=== PATIENT | male | born 1955 | race Caucasian/White ===

== ENCOUNTER → 2017-02-09 | Outpatient (CLI) | payer MEDICARE, MEDICAID ==
[~2017-02-09] MED LIST: ATN50T; DULO30CA; HYDR-31; PRX10T; PRX20T
--- NOTE | 2017-02-09 11:28 | Diagnostic Imaging Report ---
PROCEDURE: US abdomen complete. TECHNIQUE: Multiple real-time grayscale images were obtained over the abdomen in various projections. INDICATION: Abdominal pain. FINDINGS: The liver is a borderline enlarged measuring 19 cm in craniocaudal diagonal measurement. It is echogenic, suggestive of fatty infiltration. No focal mass is seen. There is hepatopetal flow in the portal vein. The pancreas is partially obscured by bowel gas. The gallbladder is the packed with stones. There is no progressive fluid or wall thickening, however, seen. Sonographic Rodgers's sign is reportedly negative. The CBD is partially obscured by bowel gas. The spleen is 12.5 x 5.4 x 5.7 cm in size, at the upper limits of normal. The right kidney is 11.9 and the left kidney is 12.8 cm in length. No hydronephrosis or focal lesion seen. Sonographic Rodgers sign is reportedly negative. There is no fluid collection or free fluid seen in the abdomen. IMPRESSION: 1. Cholelithiasis. 2. Mildly enlarged fatty liver. Dictated by: Dictated on workstation # [id number]
== END ==
LOC: RAD 08:51
PROVIDERS: ATTEND Internal Medicine
DX: K80.20 Calculus of gallbladder without cholecystitis without obstruction (principal)
CPT/HCPCS: 76700

== ENCOUNTER 2017-07-23 10:19 | Emergency (ER) | payer MEDICARE, MEDICAID ==
[~2017-07-23] VITALS: Ht 180.3 cm; Wt 181.4 kg
--- OUTSIDE RECORDS SUMMARY | 2017-07-23 10:25 | XMS REPORT | Clinical Summary ---
Author Author [facility] Address Unknown Phone Unavailable Allergies No Known Allergies Current Medications Prescription Sig. Disp. Refills Start End Date Status Date albuterol (PROVENTIL) inhale 1 Vial by 1 0 01/24/20 Active (2.5 MG/3ML) 0.083% nebulizer route every 4 10 nebulizer solution - 6 hours prn cough, wheeze, shortness of breath fexofenadine (JHONATAN) take 1 Tablet by Oral 0 20 Active 180 MG tablet route every day 10 predniSONE (DELTASONE) 10 6 by mouth today, then 21 0 01/24/20 Active MG tablet decrease by 1 daily until 10 gone zolpidem (AMBIEN) 10 MG take 1 tablet (10MG) by 0 20 Active tablet ORAL route every day at 10 bedtime paroxetine (PAXIL) 40 MG take 1 tablet (40MG) by 0 20 Active tablet ORAL route every day 10 tiotropium (SPIRIVA inhale 1 capsule (18MCG) 0 20 Active HANDIHALER) 18 MCG by INHALATION route 10 inhalation capsule every day albuterol (PROAIR HFA) inhale 2 puff by 0 20 Active 108 (90 BASE) MCG/ACT INHALATION route every 4 10 inhaler - 6 hours prn and before exercise. DULoxetine (CYMBALTA) 30 take 1 capsule (30MG) by 0 //20 Active MG capsule ORAL route every day 10 amphetamine-dextroampheta take 1 tablet (20MG) by 0 06/10/20 Active mine (ADDERALL) 20 MG ORAL route every 3 days 10 tablet before breakfast atenolol (TENORMIN) 50 MG take 1 tablet (50MG) by 30 0 06//20 Active tablet ORAL route every day 10 hydrocodone-acetaminophen take 1 tablet by ORAL 90 0 20 Active (LORCET) 10-650 MG per route every 8 hours prn 10 tablet ankylosing spondylitis pain clonazePAM (KLONOPIN) 1 take 1 tablet (1MG) by 0 01/24/20 Active MG tablet ORAL route 3 times every 10 day .reconcile (MEDICATION No Sig 1 0 02/04/20 Active LIST IMPORTED) 13 Active Problems Not on file Social History Tobacco Use Types Packs/Day Years Used Date Never Assessed Sex Assigned at Date Recorded Not on file Last Filed Vital Signs Vital Sign Reading Time Taken Blood Pressure - - Pulse - - Temperature - - Respiratory Rate - - Oxygen Saturation - - Inhaled Oxygen - - Concentration Weight 145.2 kg (320 lb) 01/23/2010 1:38 PM CDT Height - - Body Mass Index - - Plan of Treatment Health Maintenance Due Date Last Done Comments Hepatitis C Screening 1955 DTaP,Tdap,and Td Vaccines 1973 (1 - Tdap) Colon Cancer Screening 2004 Zoster Vaccine (#1) 2014 Influenza Vaccine (#1) 2017 Results Not on filefrom Last 3 Months
--- OUTSIDE RECORDS SUMMARY | 2017-07-23 10:25 | XMS REPORT ---
Author Author FABIAN MCGHEE Organization [employer] Address Unknown Phone Unavailable Care Team Providers Care Book Mender Name Role Phone FABIAN MCGHEE CP Unavailable Allergies No Known Allergies Problems Problem Type Condition Code Onset Dates Condition Status Problem COPD (chronic obstructive pulmonary disease) J44.9 Active Problem Cigarette nicotine dependence without complication F17.210 Active Problem Gout involving toe of right foot, unspecified cause, unspecified chronicity M10.9 Active Problem Chronic obstructive pulmonary disease, unspecified J44.9 Active Problem Benign essential hypertension I10 Active Problem GERD (gastroesophageal reflux disease) K21.9 Active Problem Low back pain M54.5 Active Problem Nicotine dependence F17.200 Active Medications Medication Code System Code Instructions Start Date End Date Status Dosage Paxil [facility] [address]-06 40 MG Orally Once a day 1 tablet in the morning Results No Known Results Summary Purpose [employer] Submission
--- OUTSIDE RECORDS SUMMARY | 2017-07-23 10:25 | XMS REPORT ---
Author Author FABIAN MCGHEE Organization [employer] Address Unknown Phone Unavailable Care Team Providers Care Membership Sales Manager Name Role Phone FABIAN MCGHEE CP Unavailable [...] Instructions Start Date End Date Status Dosage Adderall [facility] [address]-67 20 mg Orally 3 times a day for aDHD 1 tablet Clonazepam [facility] [address]-73 1 MG 3 times a day as needed Sep 26, 2014 1 tablet Results No Known Results Summary Purpose [employer] Submission
--- OUTSIDE RECORDS SUMMARY | 2017-07-23 10:25 | XMS REPORT ---
Author Author KATE MARTELL [facility] Address [address] [place] [address] Care Team Providers Care Voucher Examiner Name Role Phone KATE MARTELL Unavailable PROBLEMS Type Condition ICD9-CM Code [id number] Code Onset Dates Condition Status SNOMED Code Problem Gout involving toe of right foot, unspecified cause, unspecified chronicity M10.9 Active 138066408 Problem Generalized anxiety disorder F41.1 Active 39379838 Problem Major depression, chronic F32.9 Active 07897501 Problem Calculus of gallbladder without cholecystitis without obstruction K80.20 Active 637895797 Problem Major depression, recurrent F33.9 Active 79606368 Problem Chronic obstructive pulmonary disease, unspecified J44.9 Active 83069365 Problem Cigarette nicotine dependence without complication F17.210 Active 59045326 Problem Attention deficit hyperactivity disorder F90.9 Active 988467703 Problem Chronic obstructive pulmonary disease, unspecified COPD type J44.9 Active 88252627 Problem COPD (chronic obstructive pulmonary disease) J44.9 Active 47995524 Problem GERD (gastroesophageal reflux disease) K21.9 Active 776274751 Problem Low back pain M54.5 Active 940963525 Problem Benign essential hypertension I10 Active 1762907 Problem Nicotine dependence F17.200 Active 02075931 ALLERGIES No Information SOCIAL HISTORY Never Assessed PLAN OF CARE VITAL SIGNS MEDICATIONS Unknown Medications RESULTS Name Result Date Reference Range CBC 2017-01-19 WBC 9.5 3.4-10.8 RBC 5.38 4.14-5.80 Hemoglobin 15.7 12.6-17.7 Hematocrit 45.7 37.5-51.0 MCV 85 79-97 MCH 29.2 26.6-33.0 MCHC 34.4 31.5-35.7 RDW 14.5 12.3-15.4 Platelets 363 150-379 Neutrophils 71 Lymphs 18 Monocytes 8 Eos 2 Basos 1 Neutrophils (Absolute) 6.8 1.4-7.0 Lymphs (Absolute) 1.7 0.7-3.1 Monocytes(Absolute) 0.8 0.1-0.9 Eos (Absolute) 0.1 0.0-0.4 Baso (Absolute) 0.1 0.0-0.2 Immature Granulocytes 0 Immature Grans (Abs) 0.0 0.0-0.1 LIVER PANEL (LFT) 2017-01-19 Protein, Total, Serum 6.9 6.0-8.5 Albumin, Serum 3.8 3.6-4.8 Bilirubin, Total 0.5 0.0-1.2 Bilirubin, Direct 0.21 0.00-0.40 Alkaline Phosphatase, S 230 39-117 AST (SGOT) 17 0-40 ALT (SGPT) 29 0-44 PROCEDURES Procedure Date Ordered Result Body Site LAB NOT BILLED BY [facility] January 19, 2017 VENIPUNCT, ROUTINE* January 19, 2017 IMMUNIZATIONS No Known Immunizations MEDICAL (GENERAL) HISTORY Type Description Date Medical History hearing loss-partial hearing loss bilaterally Medical History hypertension Medical History chronic obstructive pulmonary disease (COPD) Medical History Arthritis-spine, knees, elbows, hands Medical History headache Medical History anxiety Medical History depression Medical History attention deficit hyperactivity disorder Medical History obesity Medical History nasal allergies Medical History dena-rectal cyst Medical History ankylosing spondylosis Surgical History pilonidal cyst 1972 Hospitalization History Hospitalization for surgery only
--- OUTSIDE RECORDS SUMMARY | 2017-07-23 10:25 | XMS REPORT ---
Author Author KATE MARTELL [facility] [employer] Address Unknown Phone Unavailable Care Team Providers Care Marketing Analytics Manager Name Role Phone KATE MARTELL CP Unavailable Allergies No Known Allergies Problems Problem Type Condition Code Onset Dates Condition Status Problem Pain in joint, ankle and foot 719.47 Active Problem Reflux esophagitis 530.11 Active Problem Lumbago 724.2 Active Problem Essential hypertension, benign 401.1 Active Problem Chronic airway obstruction, not elsewhere classified 496 Active Problem Other and unspecified hyperlipidemia 272.4 Active Problem Anxiety state, unspecified 300.00 Active Medications Medication Code System Code Instructions Start Date End Date Status Dosage Hydrocodone-Acetaminophen [facility] [address]-87 10-325 MG Orally 3 times a day October 22, 2014 1 tablet as needed Results No Known Results Summary Purpose [employer] Submission
--- OUTSIDE RECORDS SUMMARY | 2017-07-23 10:25 | XMS REPORT ---
Author Author KATE MARTELL [facility] [employer] Address Unknown Phone Unavailable Care Team Providers Care Paint Coating Machine Operator Name Role Phone KATE MARTELL CP Unavailable [...] Start Date End Date Status Dosage Hydrocodone-Acetaminophen [facility] [address]-57 10-325 MG Orally 3 times a day October 22, 2014 1 tablet as needed Results No Known Results Summary Purpose [employer] Submission
--- OUTSIDE RECORDS SUMMARY | 2017-07-23 10:25 | XMS REPORT ---
Author Author FABIAN MCGHEE Organization [facility] Address Unknown Care Team Providers Care Cigar Head Stringer Name Role Phone FABIAN MCGHEE Unavailable PROBLEMS Type Condition ICD9-CM Code NXV31-OH Code Onset Dates Condition Status SNOMED Code Problem Gout involving toe of right foot, unspecified cause, unspecified chronicity M10.9 Active 926207088 Problem Generalized anxiety disorder F41.1 Active 73863589 Problem Major depression, chronic F32.9 Active 18573448 Problem Calculus of gallbladder without cholecystitis without obstruction K80.20 Active 254406279 Problem Major depression, recurrent F33.9 Active 26955198 Problem Chronic obstructive pulmonary disease, unspecified J44.9 Active 70635355 Problem Cigarette nicotine dependence without complication F17.210 Active 85065035 Problem Attention deficit hyperactivity disorder F90.9 Active 305665789 Problem Chronic obstructive pulmonary disease, unspecified COPD type J44.9 Active 25230533 Problem GERD (gastroesophageal reflux disease) K21.9 Active 002883855 Problem Benign essential hypertension I10 Active 1502174 Problem Nicotine dependence F17.200 Active 26448674 Problem COPD (chronic obstructive pulmonary disease) J44.9 Active 75718120 Problem Low back pain M54.5 Active 570685085 ALLERGIES Unknown Allergies SOCIAL HISTORY No smoking Hx information available PLAN OF CARE VITAL SIGNS MEDICATIONS Medication Instructions Dosage Frequency Start Date End Date Duration Status Adderall 20 mg Orally 3 times a day for aDHD 1 tablet Jun, Active Clonazepam 1 MG 1 tablet Sep, Active RESULTS No Results PROCEDURES No Known procedures IMMUNIZATIONS No Known Immunizations
--- OUTSIDE RECORDS SUMMARY | 2017-07-23 10:25 | XMS REPORT ---
Author Author KATE MARTELL Organization [facility] Address [address] [place] [address] Care Team Providers Care Hrbp Name Role Phone KATE MARTELL Unavailable PROBLEMS Type Condition ICD9-CM Code GVC53-JP Code Onset Dates Condition Status SNOMED Code Problem Gout involving toe of right foot, unspecified cause, unspecified chronicity M10.9 Active 336477380 Problem Generalized anxiety disorder F41.1 Active 77393627 Problem Major depression, chronic F32.9 Active 08738549 Problem Calculus of gallbladder without cholecystitis without obstruction K80.20 Active 517136816 Problem Major depression, recurrent F33.9 Active 18934544 Problem Chronic obstructive pulmonary disease, unspecified J44.9 Active 93303095 Problem Cigarette nicotine dependence without complication F17.210 Active 86152370 Problem Attention deficit hyperactivity disorder F90.9 Active 405971643 Problem Chronic obstructive pulmonary disease, unspecified COPD type J44.9 Active 28282546 Problem COPD (chronic obstructive pulmonary disease) J44.9 Active 40147873 Problem GERD (gastroesophageal reflux disease) K21.9 Active 268433909 Problem Low back pain M54.5 Active 938198418 Problem Benign essential hypertension I10 Active 6496492 Problem Nicotine dependence F17.200 Active 87795787 ALLERGIES Unknown Allergies SOCIAL HISTORY No smoking Hx information available PLAN OF CARE VITAL SIGNS MEDICATIONS Unknown Medications RESULTS Name Result Date Reference Range HEPATITIS PROFILE 2016-08-18 Hep A Ab, IgM Negative Negative HBsAg Screen Negative Negative Hep B Core Ab, IgM Negative Negative Hep C Virus Ab <0.1 0.0-0.9 PROCEDURES Procedure Date Ordered Related Diagnosis Body Site LAB NOT BILLED BY [facility] Aug 18, 2016 VENIPUNCT, ROUTINE* Aug 18, 2016 IMMUNIZATIONS No Known Immunizations
--- OUTSIDE RECORDS SUMMARY | 2017-07-23 10:25 | XMS REPORT ---
Author Author KATE MARTELL [facility] Address [address] [place] [address] Care Team Providers Care It Consultant Name Role Phone KATE MARTELL Unavailable PROBLEMS Type Condition ICD9-CM Code VWH03-DW Code Onset Dates Condition Status SNOMED Code Problem Gout involving toe of right foot, unspecified cause, unspecified chronicity M10.9 Active 483564020 Problem Generalized anxiety disorder F41.1 Active 84422861 Problem Major depression, chronic F32.9 Active 65687706 Problem Calculus of gallbladder without cholecystitis without obstruction K80.20 Active 159582020 Problem Major depression, recurrent F33.9 Active 98813139 Problem Chronic obstructive pulmonary disease, unspecified J44.9 Active 91009105 Problem Cigarette nicotine dependence without complication F17.210 Active 39737031 Problem Attention deficit hyperactivity disorder F90.9 Active 589246890 Problem Chronic obstructive pulmonary disease, unspecified COPD type J44.9 Active 33058229 Problem COPD (chronic obstructive pulmonary disease) J44.9 Active 54129133 Problem GERD (gastroesophageal reflux disease) K21.9 Active 882929639 Problem Low back pain M54.5 Active 614671750 Problem Benign essential hypertension I10 Active 1606597 Problem Nicotine dependence F17.200 Active 86610118 ALLERGIES Unknown Allergies SOCIAL HISTORY No smoking Hx information available PLAN OF CARE VITAL SIGNS MEDICATIONS Unknown Medications RESULTS No Results PROCEDURES No Known procedures IMMUNIZATIONS No Known Immunizations
--- OUTSIDE RECORDS SUMMARY | 2017-07-23 10:25 | XMS REPORT ---
Author Author KATE MARTELL Organization [facility] Address [address] [place] [address] Care Team Providers Care Mold Stripper Name Role Phone KATE MARTELL Unavailable PROBLEMS Type Condition ICD9-CM Code OAW49-FO Code Onset Dates Condition Status SNOMED Code Problem Gout involving toe of right foot, unspecified cause, unspecified chronicity M10.9 Active 852487124 Problem Generalized anxiety disorder F41.1 Active 53976706 Problem Major depression, chronic F32.9 Active 07889425 Problem Calculus of gallbladder without cholecystitis without obstruction K80.20 Active 884284876 Problem Major depression, recurrent F33.9 Active 66040166 Problem Chronic obstructive pulmonary disease, unspecified J44.9 Active 56909739 Problem Cigarette nicotine dependence without complication F17.210 Active 41465138 Problem Attention deficit hyperactivity disorder F90.9 Active 618101288 Problem Chronic obstructive pulmonary disease, unspecified COPD type J44.9 Active 53518232 Problem COPD (chronic obstructive pulmonary disease) J44.9 Active 53379986 Problem GERD (gastroesophageal reflux disease) K21.9 Active 898998183 Problem Low back pain M54.5 Active 795281635 Problem Benign essential hypertension I10 Active 0421002 Problem Nicotine dependence F17.200 Active 69505633 ALLERGIES No Information SOCIAL HISTORY Never Assessed PLAN OF CARE VITAL SIGNS MEDICATIONS Medication Instructions Dosage Frequency Start Date End Date Duration Status Hydrocodone-Acetaminophen 10-325 MG Orally 3 times a day 1 tablet as needed 8h Jan, 28 days Active RESULTS No Results PROCEDURES No Known procedures IMMUNIZATIONS No Known Immunizations MEDICAL (GENERAL) HISTORY [...] History ankylosing spondylosis Surgical History pilonidal cyst 1973 Hospitalization History Hospitalization for surgery only
--- OUTSIDE RECORDS SUMMARY | 2017-07-23 10:25 | XMS REPORT ---
Author Author KATE MARTELL [facility] Address [address] [place] [address] Care Team Providers Care Operating Room Assistant Name Role Phone KATE MARTELL Unavailable PROBLEMS Type Condition ICD9-CM Code AHO37-EY Code Onset Dates Condition Status SNOMED Code Problem Gout involving toe of right foot, unspecified cause, unspecified chronicity M10.9 Active 518380485 Problem Generalized anxiety disorder F41.1 Active 24344977 Problem Major depression, chronic F32.9 Active 10030230 Problem Calculus of gallbladder without cholecystitis without obstruction K80.20 Active 280826458 Problem Major depression, recurrent F33.9 Active 80927006 Problem Chronic obstructive pulmonary disease, unspecified J44.9 Active 02612419 Problem Cigarette nicotine dependence without complication F17.210 Active 42394996 Problem Attention deficit hyperactivity disorder F90.9 Active 051975361 Problem Chronic obstructive pulmonary disease, unspecified COPD type J44.9 Active 15012736 Problem COPD (chronic obstructive pulmonary disease) J44.9 Active 75048129 Problem GERD (gastroesophageal reflux disease) K21.9 Active 242144667 Problem Low back pain M54.5 Active 959994725 Problem Benign essential hypertension I10 Active 7254483 Problem Nicotine dependence F17.200 Active 96437774 ALLERGIES Unknown Allergies SOCIAL HISTORY No smoking Hx information available PLAN OF CARE VITAL SIGNS MEDICATIONS Unknown Medications RESULTS No Results PROCEDURES No Known procedures IMMUNIZATIONS No Known Immunizations
--- OUTSIDE RECORDS SUMMARY | 2017-07-23 10:25 | XMS REPORT ---
Author Author FABIAN MCGHEE Organization [facility] Address Unknown Care Team Providers Care Solar Engineer Name Role Phone FABIAN MCGHEE Unavailable PROBLEMS Type Condition ICD9-CM Code AZQ33-ND Code Onset Dates Condition Status SNOMED Code Problem COPD (chronic obstructive pulmonary disease) J44.9 Active 08557828 Problem Benign essential hypertension I10 Active 4070336 Problem GERD (gastroesophageal reflux disease) K21.9 Active 293245190 Problem Cigarette nicotine dependence without complication F17.210 Active 00541576 Problem Generalized anxiety disorder F41.1 Active 08197588 Problem Low back pain M54.5 Active 323804322 Problem Nicotine dependence F17.200 Active 24608277 Problem Major depression, chronic F32.9 Active 84317668 Problem Gout involving toe of right foot, unspecified cause, unspecified chronicity M10.9 Active 721052059 ALLERGIES Unknown Allergies SOCIAL HISTORY No smoking Hx information available PLAN OF CARE VITAL SIGNS MEDICATIONS Medication Instructions Dosage Frequency Start Date End Date Duration Status Adderall 20 mg Orally 3 times a day for aDHD 1 tablet Active Clonazepam 1 MG 1 tablet Sep, Active RESULTS No Results PROCEDURES No Known procedures IMMUNIZATIONS No Known Immunizations
--- OUTSIDE RECORDS SUMMARY | 2017-07-23 10:25 | XMS REPORT ---
Author Author FABIAN MCGHEE Organization [facility] Address Unknown Care Team Providers Care Patch Driller Name Role Phone FABIAN MCGHEE Unavailable PROBLEMS Type Condition ICD9-CM Code YRQ21-CE Code Onset Dates Condition Status SNOMED Code Problem Gout involving toe of right foot, unspecified cause, unspecified chronicity M10.9 Active 970625679 Problem Generalized anxiety disorder F41.1 Active 62512886 Problem Major depression, chronic F32.9 Active 66913380 Problem Calculus of gallbladder without cholecystitis without obstruction K80.20 Active 907572780 Problem Major depression, recurrent F33.9 Active 75404204 Problem Chronic obstructive pulmonary disease, unspecified J44.9 Active 41285445 Problem Cigarette nicotine dependence without complication F17.210 Active 39323959 Problem Attention deficit hyperactivity disorder F90.9 Active 957053693 Problem Chronic obstructive pulmonary disease, unspecified COPD type J44.9 Active 53373315 Problem COPD (chronic obstructive pulmonary disease) J44.9 Active 88318668 Problem GERD (gastroesophageal reflux disease) K21.9 Active 403600809 Problem Low back pain M54.5 Active 104524130 Problem Benign essential hypertension I10 Active 8590904 Problem Nicotine dependence F17.200 Active 87891829 ALLERGIES Unknown Allergies SOCIAL HISTORY No smoking Hx information available PLAN OF CARE VITAL SIGNS MEDICATIONS Medication Instructions Dosage Frequency Start Date End Date Duration Status Clonazepam 1 MG 1 tablet Sep, 30 days Active RESULTS No Results PROCEDURES No Known procedures IMMUNIZATIONS No Known Immunizations
--- OUTSIDE RECORDS SUMMARY | 2017-07-23 10:25 | XMS REPORT ---
Author Author FABIAN MCGHEE Organization [employer] Address Unknown Phone Unavailable Care Team Providers Care Vice President Fixed Income Name Role Phone FABIAN MCGHEE CP Unavailable Allergies No Known Allergies Problems Problem Type Condition Code Onset Dates Condition Status Problem Back pain M54.9 Active Problem GERD (gastroesophageal reflux disease) K21.9 Active Problem Benign essential hypertension I10 Active Problem COPD (chronic obstructive pulmonary disease) J44.9 Active Medications No Known Medications Results No Known Results Summary Purpose [employer]ClinicalWorks Submission
--- OUTSIDE RECORDS SUMMARY | 2017-07-23 10:25 | XMS REPORT ---
Author Author LENNIE GASPAR Organization [facility] Address [address] [place] [address] Care Team Providers Care Fish Culturist Name Role Phone HUBERT LENNIE Unavailable PROBLEMS Type Condition ICD9-CM Code RAP95-IS Code Onset Dates Condition Status SNOMED Code Problem Gout involving toe of right foot, unspecified cause, unspecified chronicity M10.9 Active 236578248 Problem Generalized anxiety disorder F41.1 Active 21062383 Problem Major depression, chronic F32.9 Active 10725049 Problem Calculus of gallbladder without cholecystitis without obstruction K80.20 Active 413863314 Problem Major depression, recurrent F33.9 Active 26624046 Problem Chronic obstructive pulmonary disease, unspecified J44.9 Active 99445077 Problem Cigarette nicotine dependence without complication F17.210 Active 36118898 Problem Attention deficit hyperactivity disorder F90.9 Active 414840664 Problem Chronic obstructive pulmonary disease, unspecified COPD type J44.9 Active 69382199 Problem COPD (chronic obstructive pulmonary disease) J44.9 Active 65918894 Problem GERD (gastroesophageal reflux disease) K21.9 Active 229557659 Problem Low back pain M54.5 Active 213052711 Problem Benign essential hypertension I10 Active 2475047 Problem Nicotine dependence F17.200 Active 01213978 ALLERGIES Unknown Allergies SOCIAL HISTORY No smoking Hx information available PLAN OF CARE VITAL SIGNS MEDICATIONS Medication Instructions Dosage Frequency Start Date End Date Duration Status Hydrocodone-Acetaminophen 10-325 MG Orally 3 times a day 1 tablet as needed 8h Aug, Active RESULTS No Results PROCEDURES No Known procedures IMMUNIZATIONS No Known Immunizations
--- OUTSIDE RECORDS SUMMARY | 2017-07-23 10:26 | XMS REPORT ---
Author Author FABIAN MCGHEE Organization [employer] Address Unknown Phone Unavailable Care Team Providers Care Upholsterer Inside Name Role Phone FABIAN MCGHEE CP Unavailable [...] Start Date End Date Status Dosage Adderall [facility] [address]-43 20 MG Orally 3 times a day for aDHD Hugo to sign for Dexter 1 tablet in the morning Results No Known Results Summary Purpose eClinicalWorks Submission
--- OUTSIDE RECORDS SUMMARY | 2017-07-23 10:26 | XMS REPORT ---
Author Author FABIAN MCGHEE Organization [employer] Address Unknown Phone Unavailable Care Team Providers Care Mannequin Maker Name Role Phone FABIAN MCGHEE CP Unavailable Allergies No Known Allergies Problems Problem Type Condition ICD-9 Code Onset Dates Condition Status Problem Pain [...] Start Date End Date Status Dosage Adderall [facility] [address]-80 20 MG Orally 3 times a day for aDHD DR. Gomez to sign for Dexter 1 tablet in the morning Results No Known Results Summary Purpose eClinicalWorks Submission
--- OUTSIDE RECORDS SUMMARY | 2017-07-23 10:26 | XMS REPORT ---
Author Author FABIAN MCGHEE Organization [employer] Address Unknown Phone Unavailable Care Team Providers Care Manager Of Project Management Name Role Phone FABIAN MCGHEE CP Unavailable Allergies No Known Allergies Problems Problem Type Condition Code Onset Dates Condition Status Problem Back pain M54.9 Active Problem GERD (gastroesophageal reflux disease) K21.9 Active Problem Benign essential hypertension I10 Active Problem COPD (chronic obstructive pulmonary disease) J44.9 Active Medications Medication Code System Code Instructions Start Date End Date Status Dosage Adderall [facility] [address]-71 20 MG Orally 3 times a day for aDHD Dr Gomez to sign for Dexter 1 tablet in the morning Results No Known Results Summary Purpose eClinicalWorks Submission
--- OUTSIDE RECORDS SUMMARY | 2017-07-23 10:26 | XMS REPORT ---
Author Author KATE MARTELL [facility] eClinicalWorks Address Unknown Phone Unavailable Care Team Providers Care B2B Managed Service Sales Exec Name Role Phone KATE MARTELL CP Unavailable [...] Start Date End Date Status Dosage Hydrocodone-Acetaminophen [facility] [address]-07 10-325 MG Orally 3 times a day October 22, 2014 1 tablet as needed Results No Known Results Summary Purpose eClinicalWorks Submission
--- OUTSIDE RECORDS SUMMARY | 2017-07-23 10:26 | XMS REPORT ---
Author Author KATE MARTELL [facility] eClinicalWorks Address Unknown Phone Unavailable Care Team Providers Care Coach Name Role Phone KATE MARTELL CP Unavailable [...] Start Date End Date Status Dosage Hydrocodone-Acetaminophen [facility] [address]-31 10-325 MG Orally 3 times a day October 22, 2014 1 tablet as needed Results No Known Results Summary Purpose eClinicalWorks Submission
--- OUTSIDE RECORDS SUMMARY | 2017-07-23 10:26 | XMS REPORT ---
Author Author KATE MARTELL [facility] eClinicalWorks Address Unknown Phone Unavailable Care Team Providers Care Director Of Product Management Name Role Phone KATE MARTELL CP Unavailable [...] Start Date End Date Status Dosage Hydrocodone-Acetaminophen [facility] [address]-14 10-325 MG Orally 3 times a day October 22, 2014 1 tablet as needed Results No Known Results Summary Purpose eClinicalWorks Submission
--- OUTSIDE RECORDS SUMMARY | 2017-07-23 10:26 | XMS REPORT ---
Author Author KATE MARTELL Organization [facility] Address [address] [place] [address] Care Team Providers Care Cut Out Stitcher Name Role Phone KATE MARTELL Unavailable PROBLEMS Type Condition ICD9-CM Code [id number] Code Onset Dates Condition Status SNOMED Code Problem Gout involving toe of right foot, unspecified cause, unspecified chronicity M10.9 Active 225781408 Problem Generalized anxiety disorder F41.1 Active 01561737 Problem Major depression, chronic F32.9 Active 12494541 Problem Calculus of gallbladder without cholecystitis without obstruction K80.20 Active 984367787 Problem Major depression, recurrent F33.9 Active 22965320 Problem Chronic obstructive pulmonary disease, unspecified J44.9 Active 92770103 Problem Cigarette nicotine dependence without complication F17.210 Active 57366431 Problem Attention deficit hyperactivity disorder F90.9 Active 675879559 Problem Chronic obstructive pulmonary disease, unspecified COPD type J44.9 Active 04676022 Problem COPD (chronic obstructive pulmonary disease) J44.9 Active 73608387 Problem GERD (gastroesophageal reflux disease) K21.9 Active 883472079 Problem Low back pain M54.5 Active 330197807 Problem Benign essential hypertension I10 Active 0364096 Problem Nicotine dependence F17.200 Active 89549769 ALLERGIES No Information SOCIAL HISTORY Never Assessed PLAN OF CARE VITAL SIGNS MEDICATIONS Medication Instructions Dosage Frequency Start Date End Date Duration Status Hydrocodone-Acetaminophen 10-325 MG Orally 3 times a day 1 tablet as needed 8h December, 28 days Active RESULTS No Results PROCEDURES [...]
--- OUTSIDE RECORDS SUMMARY | 2017-07-23 10:26 | XMS REPORT ---
Author Author KATE MARTELL Organization [facility] Address [address] [place] [address] Care Team Providers Care Sister Superior Name Role Phone KATE MARTELL Unavailable PROBLEMS Type Condition ICD9-CM Code SRL55-HH Code Onset Dates Condition Status SNOMED Code Problem Gout involving toe of right foot, unspecified cause, unspecified chronicity M10.9 Active 408770940 Problem Generalized anxiety disorder F41.1 Active 18642286 Problem Major depression, chronic F32.9 Active 96874374 Problem Calculus of gallbladder without cholecystitis without obstruction K80.20 Active 045326953 Problem Major depression, recurrent F33.9 Active 96073590 Problem Chronic obstructive pulmonary disease, unspecified J44.9 Active 72627995 Problem Cigarette nicotine dependence without complication F17.210 Active 44633158 Problem Attention deficit hyperactivity disorder F90.9 Active 603060182 Problem Chronic obstructive pulmonary disease, unspecified COPD type J44.9 Active 17394588 Problem GERD (gastroesophageal reflux disease) K21.9 Active 792316556 Problem Benign essential hypertension I10 Active 0162998 Problem Nicotine dependence F17.200 Active 95081894 Problem COPD (chronic obstructive pulmonary disease) J44.9 Active 77132787 Problem Low back pain M54.5 Active 908899360 ALLERGIES Unknown Allergies SOCIAL HISTORY No smoking Hx information available PLAN OF CARE VITAL SIGNS MEDICATIONS Unknown Medications RESULTS No Results PROCEDURES No Known procedures IMMUNIZATIONS No Known Immunizations
--- OUTSIDE RECORDS SUMMARY | 2017-07-23 10:26 | XMS REPORT ---
Author Author FABIAN Holt Organization [facility] Address Unknown Care Team Providers Care Planing Machine Operator Name Role Phone FABIAN Holt Unavailable PROBLEMS Type Condition ICD9-CM Code WTT63-[id number] Code Onset Dates Condition Status SNOMED Code Problem Gout involving toe of right foot, unspecified cause, unspecified chronicity M10.9 Active 939714630 Problem Generalized anxiety disorder F41.1 Active 75691779 Problem Major depression, chronic F32.9 Active 61230362 Problem Calculus of gallbladder without cholecystitis without obstruction K80.20 Active 335959448 Problem Major depression, recurrent F33.9 Active 66777121 Problem Chronic obstructive pulmonary disease, unspecified J44.9 Active 96478307 Problem Cigarette nicotine dependence without complication F17.210 Active 23231405 Problem Attention deficit hyperactivity disorder F90.9 Active 509062175 Problem Chronic obstructive pulmonary disease, unspecified COPD type J44.9 Active 68477775 Problem COPD (chronic obstructive pulmonary disease) J44.9 Active 20797714 Problem GERD (gastroesophageal reflux disease) K21.9 Active 370962272 Problem Low back pain M54.5 Active 968202816 Problem Benign essential hypertension I10 Active 5524584 Problem Nicotine dependence F17.200 Active 86254653 ALLERGIES No Information SOCIAL HISTORY Never Assessed PLAN OF CARE VITAL SIGNS MEDICATIONS Medication Instructions Dosage Frequency Start Date End Date Duration Status Adderall 20 mg Orally 3 times a day for aDHD 1 tablet December, 28 days Active RESULTS No Results [...]
--- OUTSIDE RECORDS SUMMARY | 2017-07-23 10:26 | XMS REPORT ---
Author Author KATE MARTELL Organization [facility] Address [address] [place] [address] Care Team Providers Care Scale Adjuster Name Role Phone KATE MARETLL Unavailable PROBLEMS Type Condition ICD9-CM Code [id number] Code Onset Dates Condition Status SNOMED Code Problem Gout involving toe of right foot, unspecified cause, unspecified chronicity M10.9 Active 001808325 Problem Generalized anxiety disorder F41.1 Active 17489084 Problem Major depression, chronic F32.9 Active 54156552 Problem Calculus of gallbladder without cholecystitis without obstruction K80.20 Active 617870134 Problem Major depression, recurrent F33.9 Active 92446782 Problem Chronic obstructive pulmonary disease, unspecified J44.9 Active 39903254 Problem Cigarette nicotine dependence without complication F17.210 Active 90184414 Problem Attention deficit hyperactivity disorder F90.9 Active 467659129 Problem Chronic obstructive pulmonary disease, unspecified COPD type J44.9 Active 61871510 Problem COPD (chronic obstructive pulmonary disease) J44.9 Active 29181699 Problem GERD (gastroesophageal reflux disease) K21.9 Active 531119013 Problem Low back pain M54.5 Active 424134956 Problem Benign essential hypertension I10 Active 1580302 Problem Nicotine dependence F17.200 Active 47109384 ALLERGIES No Information SOCIAL HISTORY Never Assessed PLAN OF CARE VITAL SIGNS MEDICATIONS Medication Instructions Dosage Frequency Start Date End Date Duration Status Hydrocodone-Acetaminophen 10-325 MG Orally 3 times a day 1 tablet as needed 8h 14 Sep, 2016 Active RESULTS No Results PROCEDURES No Known [...]
--- OUTSIDE RECORDS SUMMARY | 2017-07-23 10:26 | XMS REPORT ---
Author Author FABIAN MCGHEE [facility] eClinicalWorks Address Unknown Phone Unavailable Care Team Providers Care Dry Yard Worker Name Role Phone FABIAN MCGHEE CP Unavailable Allergies, Adverse Reactions, Alerts Substance Reaction Event Type N.K.D.A. Info Not Available Non Drug Allergy Problems Problem Type Condition Code Onset Dates Condition Status Problem Back pain M54.9 Active Problem GERD (gastroesophageal reflux disease) K21.9 Active Problem Benign essential hypertension I10 Active Assessment Major depression, recurrent F33.9 Active Assessment Attention deficit hyperactivity disorder F90.9 Active Problem COPD (chronic obstructive pulmonary disease) J44.9 Active Assessment Generalized anxiety disorder F41.1 Active Medications Medication Code System Code Instructions Start Date End Date Status Dosage Triamcinolone Acetonide [facility] [address]-79 0.1 % Externally Twice a day February 12, 2015 1 application to affected area Hydrocodone-Acetaminophen [facility] [address]-35 10-325 MG Orally 3 times a day October 22, 2014 1 tablet as needed ProAir HFA [facility] 57206292637 90 INHALE TWO PUFFS BY MOUTH EVERY 4 HOURS NEEDED FOR SHORTNESS OF BREATH / COUGH Ranitidine HCl [facility] [address]-76 300 MG Orally Twice a day 1 tablet Ibuprofen [facility] 25519118535 800 TAKE ONE TABLET BY MOUTH THREE TIMES A DAY Cymbalta [facility] [address]-24 30 MG Orally Once a day 1 capsule Imitrex [facility] [address]-61 50 mg Apr 26, 2014 1 tablet by Oral route 1 time per day and repeat once more after 2 hours if headache recurs PRN Albuterol Sulfate [facility] [address]-62 1.25 mg/3 mL Apr 26, 2014 1 Each by Inhalation route 4 times per day PRN prn wheezing Clonazepam [facility] [address]-10 1 MG 1 TAB orally 3 times a day Sep 26, 2014 1 tablet by Oral route 3 times per day PRN anxiety Adderall [facility] [address]-49 20 MG Orally 3 times a day for aDHD Dr Gomez to sign for Dexter 1 tablet in the morning Fluticasone Propionate [facility] 27096009698 [address] TWO SPRAYS IN EACH NOSTRIL ONCE DAILY Fexofenadine HCl [facility] [address]-22 180 MG Orally Once a day 1 tablet promethazine [place] 0 25 mg October 22, 2014 1 tablet by Oral route every 6 hours PRN Tenormin [facility] [address]-85 50 MG Orally Once a day 1 tablet Spiriva HandiHaler [facility] 08762549786 18 INHALE 1 CAPSULE INTO LUNGS ONCE DAILY USING HANDIHALER Paxil [facility] [address]-32 40 MG Orally Once a day 1 tablet in the morning Procedures Procedure Coding System Code Date Office Visit, [place] Pt., Level 3 CPT-4 84199 Jul 19, 2015 [facility] VISIT ESTABLISHED PATIENT CPT-4 G0467 Jul 19, 2015 Results No Known Results Summary Purpose eClinicalWorks Submission
--- OUTSIDE RECORDS SUMMARY | 2017-07-23 10:26 | XMS REPORT ---
Author Author KATE MARTELL Organization [employer]ClinicalWorks Address Unknown Phone Unavailable Care Team Providers Care Apple Peeler Operator Name Role Phone KATE MARTELL CP [...] Active Problem Nicotine dependence F17.200 Active Medications No Known Medications Results No Known Results Summary Purpose eClinicalWorks Submission
--- OUTSIDE RECORDS SUMMARY | 2017-07-23 10:26 | XMS REPORT ---
Author Author KATE MARTELL [facility] eClinicalWorks Address Unknown Phone Unavailable Care Team Providers Care Housing Assistant Name Role Phone KATE MARTELL CP Unavailable Allergies No Known Allergies Problems Problem Type Condition Code Onset Dates Condition Status Problem COPD (chronic obstructive pulmonary disease) J44.9 Active Assessment Chronic obstructive pulmonary disease, unspecified J44.9 Active Problem Cigarette nicotine dependence without [...] Instructions Start Date End Date Status Dosage Albuterol Sulfate [facility] 59123421466 2.5 mg USE 1 VIAL IN NEBULIZER FOUR TIMES A DAY NEEDED FOR WHEEZING Results No Known Results Summary Purpose eClinicalWorks Submission
--- OUTSIDE RECORDS SUMMARY | 2017-07-23 10:26 | XMS REPORT ---
Author Author KATE MARTELL [facility] eClinicalWorks Address Unknown Phone Unavailable Care Team Providers Care Film Color Tester Name Role Phone KATE MARTELL CP Unavailable [...] Problem Anxiety state, unspecified 300.00 Active Medications No Known Medications Results No Known Results Summary Purpose eClinicalWorks Submission
--- OUTSIDE RECORDS SUMMARY | 2017-07-23 10:26 | XMS REPORT ---
Author Author FABIAN MCGHEE Organization eClinicalWorks Address Unknown Phone Unavailable Care Team Providers Care Admin Asst Name Role Phone FABIAN MCGHEE CP Unavailable [...] Status Dosage Adderall [facility] [address]-09 20 MG Orally 3 times a day for aDHD DR. Gomez to sign for Dexter 1 tablet in the morning Results No Known Results Summary Purpose eClinicalWorks Submission
--- OUTSIDE RECORDS SUMMARY | 2017-07-23 10:26 | XMS REPORT ---
Author Author KATE MARTELL [facility] Address [address] [place] [address] Care Team Providers Care Field Operator Name Role Phone KATE MARTELL Unavailable PROBLEMS Type Condition ICD9-CM Code [id number] Code Onset Dates Condition Status SNOMED Code Problem Gout involving toe of right foot, unspecified cause, unspecified chronicity M10.9 Active 531500529 Problem Generalized anxiety disorder F41.1 Active 58639461 Problem Major depression, chronic F32.9 Active 49117865 Problem Calculus of gallbladder without cholecystitis without obstruction K80.20 Active 987874462 Problem Major depression, recurrent F33.9 Active 45518184 Problem Chronic obstructive pulmonary disease, unspecified J44.9 Active 91505431 Problem Cigarette nicotine dependence without complication F17.210 Active 03263531 Problem Attention deficit hyperactivity disorder F90.9 Active 589177479 Problem Chronic obstructive pulmonary disease, unspecified COPD type J44.9 Active 40084915 Problem COPD (chronic obstructive pulmonary disease) J44.9 Active 76241584 Problem GERD (gastroesophageal reflux disease) K21.9 Active 023227463 Problem Low back pain M54.5 Active 531905316 Problem Benign essential hypertension I10 Active 4254532 Problem Nicotine dependence F17.200 Active 91168084 ALLERGIES Unknown Allergies SOCIAL HISTORY No smoking Hx information available PLAN OF CARE VITAL SIGNS MEDICATIONS Unknown Medications RESULTS No Results PROCEDURES No Known procedures IMMUNIZATIONS No Known Immunizations
[2017-07-23] MEDS ORDERED: NS IV 1000 ML 2,000 ML ONE (10:27)
--- OUTSIDE RECORDS SUMMARY | 2017-07-23 10:27 | XMS REPORT ---
Author Author FABIAN MCGHEE Organization eClinicalWorks Address Unknown Phone Unavailable Care Team Providers Care Research Worker Kitchen Name Role Phone FABIAN MCGHEE CP Unavailable Allergies No Known Allergies Problems Problem Type Condition Code Onset Dates Condition Status Problem Low back pain M54.5 Active Problem Nicotine dependence F17.200 Active Problem Gout involving toe of right foot, unspecified cause, unspecified chronicity M10.9 Active Problem COPD (chronic obstructive pulmonary disease) J44.9 Active Problem Benign essential hypertension I10 Active Problem GERD (gastroesophageal reflux disease) K21.9 Active Medications Medication Code System Code Instructions Start Date End Date Status Dosage Adderall [facility] [address]-24 20 mg Orally 3 times a day for aDHD 1 tablet Results No Known Results Summary Purpose eClinicalWorks Submission
--- OUTSIDE RECORDS SUMMARY | 2017-07-23 10:27 | XMS REPORT ---
Author Author FABIAN MCGHEE Organization eClinicalWorks Address Unknown Phone Unavailable Care Team Providers Care Cemetery Workers Supervisor Name Role Phone FABIAN MCGHEE CP Unavailable [...] Instructions Start Date End Date Status Dosage Clonazepam [facility] [address]-90 1 MG 3 times a day as needed Sep 26, 2014 1 tablet Results No Known Results Summary Purpose eClinicalWorks Submission
--- OUTSIDE RECORDS SUMMARY | 2017-07-23 10:27 | XMS REPORT ---
Author Author FABIAN MCGHEE Organization [facility] Address Unknown Care Team Providers Care Web Producer Name Role Phone FABIAN MCGHEE Unavailable PROBLEMS Type Condition ICD9-CM Code TES95-MR Code Onset Dates Condition Status SNOMED Code Problem Gout involving toe of right foot, unspecified cause, unspecified chronicity M10.9 Active 055573825 Problem Generalized anxiety disorder F41.1 Active 51353088 Problem Major depression, chronic F32.9 Active 02386631 Problem Calculus of gallbladder without cholecystitis without obstruction K80.20 Active 060219485 Problem Major depression, recurrent F33.9 Active 28802208 Problem Chronic obstructive pulmonary disease, unspecified J44.9 Active 78309508 Problem Cigarette nicotine dependence without complication F17.210 Active 84146599 Problem Attention deficit hyperactivity disorder F90.9 Active 296564355 Problem Chronic obstructive pulmonary disease, unspecified COPD type J44.9 Active 19572659 Problem GERD (gastroesophageal reflux disease) K21.9 Active 716712122 Problem Benign essential hypertension I10 Active 3309385 Problem Nicotine dependence F17.200 Active 82957574 Problem COPD (chronic obstructive pulmonary disease) J44.9 Active 03514166 Problem Low back pain M54.5 Active 924907621 ALLERGIES Substance Reaction Event Type Date Status N.K.D.A. Unknown Non Drug Allergy Jun, Unknown SOCIAL HISTORY No smoking Hx information available PLAN OF CARE Activity Details Follow Up 3 Months Reason: VITAL SIGNS Height 68 in 2016-07-15 Weight 329.9 lbs 2016-07-15 Heart Rate 88 bpm 2016-07-15 Respiratory Rate 20 2016-07-15 BMI 50.16 kg/m2 2016-07-15 Blood pressure systolic 123 mmHg 2016-07-15 Blood pressure diastolic 63 mmHg 2016-07-15 MEDICATIONS Medication Instructions Dosage Frequency Start Date End Date Duration Status Ventolin HFA 108 (90 Base) MCG/ACT Inhalation every 4 hrs 2 puffs as needed 4h Aug, 30 days Active Triamcinolone Acetonide 0.1 % Externally Twice a day 1 application to affected area 12h 30 Jan, 2015 Active Hydrocodone-Acetaminophen 10-325 MG Orally 3 times a day 1 tablet as needed 8h Oct, Active Fluticasone Propionate [address] TWO SPRAYS IN EACH NOSTRIL ONCE DAILY 30 Active Cyclobenzaprine HCl 10 TAKE ONE TABLET BY MOUTH THREE TIMES A DAY 10 Active Spiriva HandiHaler 18 INHALE 1 CAPSULE INTO LUNGS ONCE DAILY USING HANDIHALER 30 Active Spiriva Respimat 2.5 MCG/ACT Inhalation Once a day 2 puffs 24h Jun, Active Fexofenadine HCl 180 MG Orally Once a day 1 tablet 24h Active Paxil 40 MG Orally Once a day 1 tablet in the morning 24h 30 days Active Ranitidine HCl 300 TAKE ONE TABLET BY MOUTH TWICE A DAY 30 Active Cymbalta 60 MG Orally Once a day 1 capsule 24h December, 30 days Active Ibuprofen 800 TAKE ONE TABLET BY MOUTH THREE TIMES A DAY 33 Active Adderall 20 mg Orally 3 times a day for aDHD 1 tablet Jun, Active Cymbalta 60 TAKE ONE CAPSULE BY MOUTH DAILY 30 Active Albuterol Sulfate 1.25 mg/3 mL 1 Each by Inhalation route 4 times per day PRN prn wheezing Apr, Active Tenormin 50 TAKE ONE TABLET BY MOUTH DAILY 30 Active Albuterol Sulfate 2.5 mg USE 1 VIAL IN NEBULIZER FOUR TIMES A DAY NEEDED FOR WHEEZING 30 Active Ventolin HFA 90 INHALE TWO PUFFS BY MOUTH EVERY 4 HOURS 16 Active Cymbalta 30 MG Orally Once a day 1 capsule 24h 30 days Active [facility] Allergy 180 TAKE ONE TABLET BY MOUTH ONCE A DAY 30 Active promethazine 25 mg 1 tablet by Oral route every 6 hours PRN Oct, Active Imitrex 50 TAKE 1 TABLET BY MOUTH DAILY NEEDED FOR HEADACHE. MAY REPEAT ONCE AFTER 2 HOURS 5 Active Clonazepam 1 MG 1 tablet Sep, Active RESULTS No Results PROCEDURES Procedure Date Ordered Related Diagnosis Body Site [facility] VISIT ESTABLISHED PATIENT Jul 15, 2016 Office Visit, Est Pt., Level 3 Jul 15, 2016 IMMUNIZATIONS No Known Immunizations
--- OUTSIDE RECORDS SUMMARY | 2017-07-23 10:27 | XMS REPORT ---
Author Author KATE MARTELL [facility] Address [address] [place] [address] Care Team Providers Care Dairy Truck Driver Name Role Phone KATE MARTELL Unavailable PROBLEMS Type Condition ICD9-CM Code [id number] Code Onset Dates Condition Status SNOMED Code Problem COPD (chronic obstructive pulmonary disease) J44.9 Active 12498571 Problem Benign essential hypertension I10 Active 8428515 Problem GERD (gastroesophageal reflux disease) K21.9 Active 225644467 Assessment Encounter for immunization Z23 Apr, Active 361310836 Assessment Low back pain M54.5 Apr, Active 240246387 Problem Cigarette nicotine dependence without complication F17.210 Active 33437708 Problem Generalized anxiety disorder F41.1 Active 13733206 Problem Low back pain M54.5 Active 509572406 Problem Nicotine dependence F17.200 Active 85895114 Problem Major depression, chronic F32.9 Active 25743975 Problem Gout involving toe of right foot, unspecified cause, unspecified chronicity M10.9 Active 332164732 ALLERGIES Substance Reaction Event Type Date Status N.K.D.A. Unknown Non Drug Allergy Apr, Unknown SOCIAL HISTORY No smoking Hx information available PLAN OF CARE VITAL SIGNS Height 68 in 2016-05-11 Weight 332 lbs 2016-05-11 Heart Rate 62 bpm 2016-05-11 Respiratory Rate 20 2016-05-11 BMI 50.47 kg/m2 2016-05-11 Blood pressure systolic 130 mmHg 2016-05-11 Blood pressure diastolic 70 mmHg 2016-05-11 MEDICATIONS Medication Instructions Dosage Frequency Start Date End Date Duration Status promethazine 25 mg 1 tablet by Oral route every 6 hours PRN Oct, Active Wal-Fex Allergy 180 TAKE ONE TABLET BY MOUTH ONCE A DAY 30 Active Spiriva HandiHaler 18 INHALE 1 CAPSULE INTO LUNGS ONCE DAILY USING HANDIHALER 30 Active Fexofenadine HCl 180 MG Orally Once a day 1 tablet 24h Active Ranitidine HCl 300 TAKE ONE TABLET BY MOUTH TWICE A DAY 30 Active Albuterol Sulfate 1.25 mg/3 mL 1 Each by Inhalation route 4 times per day PRN prn wheezing 11 Apr, 2014 Active Fluticasone Propionate [address] TWO SPRAYS IN EACH NOSTRIL ONCE DAILY 30 Active Imitrex 50 TAKE 1 TABLET BY MOUTH DAILY NEEDED FOR HEADACHE. MAY REPEAT ONCE AFTER 2 HOURS 5 Active Adderall 20 mg Orally 3 times a day for aDHD 1 tablet Active Cymbalta 60 TAKE ONE CAPSULE BY MOUTH DAILY 30 Active Paxil 40 MG Orally Once a day 1 tablet in the morning 24h 30 days Active Ibuprofen 800 TAKE ONE TABLET BY MOUTH THREE TIMES A DAY 33 Active Ventolin HFA 90 Inhalation every 4 hrs 2 puffs as needed 4h 16 Active Cymbalta 30 MG Orally Once a day 1 capsule 24h 30 days Active Clonazepam 1 MG 1 tablet 11 Sep, 2014 Active Triamcinolone Acetonide 0.1 % Externally Twice a day 1 application to affected area 12h Jan, Active Cymbalta 60 MG Orally Once a day 1 capsule 24h December, 30 day(s) Active Hydrocodone-Acetaminophen 10-325 MG Orally 3 times a day 1 tablet as needed 8h Oct, Active Ventolin HFA 108 (90 Base) MCG/ACT Inhalation every 4 hrs 2 puffs as needed 4h 07 Aug, 2015 Active Cyclobenzaprine HCl 10 TAKE ONE TABLET BY MOUTH THREE TIMES A DAY 10 Active Tenormin 50 TAKE ONE TABLET BY MOUTH DAILY 30 Active RESULTS No Results PROCEDURES Procedure Date Ordered Related Diagnosis Body Site [facility] VISIT ESTABLISHED PATIENT May 11, 2016 Office Visit, Est Pt., Level 3 May 11, 2016 SINGLE IMMUNIZATION ADMIN May 11, 2016 FLUARIX QUAD P-FREE 3 AND UP .50 2015May 11, 2016 IMMUNIZATIONS Vaccine Route Administration Date Status FLUARIX QUAD P-FREE 3 AND UP .50 2015 IM Intramuscular May 11, 2016 Administered
--- OUTSIDE RECORDS SUMMARY | 2017-07-23 10:27 | XMS REPORT ---
Author Author FABIAN Holt Organization [facility] Address Unknown Care Team Providers Care Orthopedic Designer Name Role Phone FABIAN Holt Unavailable PROBLEMS Type Condition ICD9-CM Code [id number] Code Onset Dates Condition Status SNOMED Code Problem Gout involving toe of right foot, unspecified cause, unspecified chronicity M10.9 Active 917211981 Problem Generalized anxiety disorder F41.1 Active 45061482 Problem Major depression, chronic F32.9 Active 00796683 Problem Calculus of gallbladder without cholecystitis without obstruction K80.20 Active 096103963 Problem Major depression, recurrent F33.9 Active 44970792 Problem Chronic obstructive pulmonary disease, unspecified J44.9 Active 68533409 Problem Cigarette nicotine dependence without complication F17.210 Active 78899631 Problem Attention deficit hyperactivity disorder F90.9 Active 636205252 Problem Chronic obstructive pulmonary disease, unspecified COPD type J44.9 Active 71334032 Problem COPD (chronic obstructive pulmonary disease) J44.9 Active 86739050 Problem GERD (gastroesophageal reflux disease) K21.9 Active 497426879 Problem Low back pain M54.5 Active 565822172 Problem Benign essential hypertension I10 Active 7043178 Problem Nicotine dependence F17.200 Active 13420052 ALLERGIES No Information SOCIAL HISTORY Never Assessed PLAN OF CARE VITAL SIGNS MEDICATIONS Medication Instructions Dosage Frequency Start Date End Date Duration Status Clonazepam 1 MG Orally 3 times a day as needed 1 tablet Sep, 30 days Active RESULTS [...]
--- OUTSIDE RECORDS SUMMARY | 2017-07-23 10:27 | XMS REPORT ---
Author Author FABIAN Holt Organization [facility] Address Unknown Care Team Providers Care Certified Nurses Aide Name Role Phone FABIAN Holt Unavailable PROBLEMS Type Condition ICD9-CM Code [id number] Code Onset Dates Condition Status SNOMED Code Problem Gout involving toe of right foot, unspecified cause, unspecified chronicity M10.9 Active 267397471 Problem Generalized anxiety disorder F41.1 Active 99894176 Problem Major depression, chronic F32.9 Active 34406838 Problem Calculus of gallbladder without cholecystitis without obstruction K80.20 Active 326333798 Problem Major depression, recurrent F33.9 Active 91041925 Problem Chronic obstructive pulmonary disease, unspecified J44.9 Active 74059742 Problem Cigarette nicotine dependence without complication F17.210 Active 92618467 Problem Attention deficit hyperactivity disorder F90.9 Active 012554080 Problem Chronic obstructive pulmonary disease, unspecified COPD type J44.9 Active 43752397 Problem COPD (chronic obstructive pulmonary disease) J44.9 Active 65510993 Problem GERD (gastroesophageal reflux disease) K21.9 Active 460719272 Problem Low back pain M54.5 Active 999562424 Problem Benign essential hypertension I10 Active 1269553 Problem Nicotine dependence F17.200 Active 72805026 ALLERGIES No Information SOCIAL HISTORY Never Assessed PLAN OF CARE VITAL SIGNS MEDICATIONS Medication Instructions Dosage Frequency Start Date End Date Duration Status Adderall 20 mg Orally 3 times a day for aDHD 1 tablet Sep, 28 days Active Clonazepam 1 MG 1 tablet Sep, 30 [...]
--- OUTSIDE RECORDS SUMMARY | 2017-07-23 10:27 | XMS REPORT ---
Author Author FABIAN MCGHEE [facility] eClinicalWorks Address Unknown Phone Unavailable Care Team Providers Care Steel Engraver Name Role Phone FABIAN MCGHEE CP Unavailable Allergies, Adverse Reactions, Alerts Substance Reaction Event Type N.K.D.A. Info Not Available Non Drug Allergy Problems Problem Type Condition Code Onset Dates Condition Status Assessment Major depression, recurrent F33.9 Active Problem Nicotine dependence F17.200 Active Problem Benign essential hypertension I10 Active Problem Low back pain M54.5 Active Problem COPD (chronic obstructive pulmonary disease) J44.9 Active Assessment Generalized anxiety disorder F41.1 Active Problem Back pain M54.9 Active Problem GERD (gastroesophageal reflux disease) K21.9 Active Medications Medication Code System Code Instructions Start Date End Date Status Dosage Cymbalta [facility] [address]-84 60 MG Orally Once a day December 16, 2015 1 capsule Cyclobenzaprine HCl [facility] 18375362415 10 TAKE ONE TABLET BY MOUTH THREE TIMES A DAY Ventolin HFA [facility] [address]-04 108 (90 Base) MCG/ACT Inhalation every 4 hrs Aug 22, 2015 2 puffs as needed [facility]ex Allergy [facility] 10378919394 180 TAKE ONE TABLET BY MOUTH ONCE A DAY Adderall [facility] [address]-66 20 mg Orally 3 times a day for aDHD 1 tablet Paxil [facility] [address]-01 40 MG Orally Once a day 1 tablet in the morning Clonazepam [facility] [address]-14 1 MG 1 TAB orally 3 times a day Sep 26, 2014 1 tablet by Oral route 3 times per day PRN anxiety Triamcinolone Acetonide [facility] [address]-72 0.1 % Externally Twice a day February 12, 2015 1 application to affected area Imitrex [facility] 06669605902 50 TAKE 1 TABLET BY MOUTH DAILY NEEDED FOR HEADACHE. DECEMBER REPEAT ONCE AFTER 2 HOURS Fexofenadine HCl [facility] [address]-67 180 MG Orally Once a day 1 tablet promethazine [facility] 0 25 mg October 22, 2014 1 tablet by Oral route every 6 hours PRN Fluticasone Propionate [facility] 94522095272 [address] TWO SPRAYS IN EACH NOSTRIL ONCE DAILY Spiriva HandiHaler [facility] 94493528457 18 INHALE 1 CAPSULE INTO LUNGS ONCE DAILY USING HANDIHALER Hydrocodone-Acetaminophen [facility] [address]-27 10-325 MG Orally 3 times a day October 22, 2014 1 tablet as needed Ranitidine HCl [facility] 92710958603 300 TAKE ONE TABLET BY MOUTH TWICE A DAY Albuterol Sulfate [facility] [address]-35 1.25 mg/3 mL Apr 26, 2014 1 Each by Inhalation route 4 times per day PRN prn wheezing Tenormin [facility] 43382839128 50 TAKE ONE TABLET BY MOUTH DAILY Cymbalta [facility] [address]-39 30 MG Orally Once a day 1 capsule Ibuprofen [facility] 00352064166 800 TAKE ONE TABLET BY MOUTH THREE TIMES A DAY Procedures Procedure Coding System Code Date Office Visit, Est Pt., Level 3 CPT-4 92021 December 16, 2015 [facility] VISIT ESTABLISHED PATIENT CPT-4 G0467 December 16, 2015 Vital Signs Date/Time: December 16, 2015 Cardiac Monitoring Heart Rate 68 bpm Weight 330.7 lbs Height 68 in BMI 50.28 Index Blood Pressure Diastolic 78 mmHg Blood Pressure Systolic 130 mmHg Results No Known Results Summary Purpose eClinicalWorks Submission
--- OUTSIDE RECORDS SUMMARY | 2017-07-23 10:27 | XMS REPORT ---
Author Author KATE MARTELL [facility] Address [address] [place] [address] Care Team Providers Care Calender Feeder Name Role Phone KATE MARTELL Unavailable PROBLEMS Type Condition ICD9-CM Code [id number] Code Onset Dates Condition Status SNOMED Code Problem COPD (chronic obstructive pulmonary disease) J44.9 Active 81427097 Problem Benign essential hypertension I10 Active 1278534 Problem GERD (gastroesophageal reflux disease) K21.9 Active 606686332 Problem Cigarette nicotine dependence without complication F17.210 Active 84247753 Problem Generalized anxiety disorder F41.1 Active 52822414 Problem Low back pain M54.5 Active 918538163 Problem Nicotine dependence F17.200 Active 12157028 Problem Major depression, chronic F32.9 Active 15038042 Problem Gout involving toe of right foot, unspecified cause, unspecified chronicity M10.9 Active 140477219 ALLERGIES Unknown Allergies SOCIAL HISTORY No smoking Hx information available PLAN OF CARE VITAL SIGNS MEDICATIONS Medication Instructions Dosage Frequency Start Date End Date Duration Status Hydrocodone-Acetaminophen 10-325 MG Orally 3 times a day 1 tablet as needed 8h Oct, Active RESULTS No Results PROCEDURES No Known procedures IMMUNIZATIONS No Known Immunizations
--- OUTSIDE RECORDS SUMMARY | 2017-07-23 10:27 | XMS REPORT ---
Author Author KATE MARTELL Organization [facility] Address [address] [place] [address] Care Team Providers Care Property Caretaker Name Role Phone KATE MARTELL Unavailable PROBLEMS Type Condition ICD9-CM Code [id number] Code Onset Dates Condition Status SNOMED Code Problem Gout involving toe of right foot, unspecified cause, unspecified chronicity M10.9 Active 863529792 Problem Generalized anxiety disorder F41.1 Active 65639270 Problem Major depression, chronic F32.9 Active 77062972 Problem Calculus of gallbladder without cholecystitis without obstruction K80.20 Active 994138039 Problem Major depression, recurrent F33.9 Active 84068356 Problem Chronic obstructive pulmonary disease, unspecified J44.9 Active 61857569 Problem Cigarette nicotine dependence without complication F17.210 Active 06804682 Problem Attention deficit hyperactivity disorder F90.9 Active 186044806 Problem Chronic obstructive pulmonary disease, unspecified COPD type J44.9 Active 73045469 Problem COPD (chronic obstructive pulmonary disease) J44.9 Active 87363552 Problem GERD (gastroesophageal reflux disease) K21.9 Active 247184483 Problem Low back pain M54.5 Active 205777895 Problem Benign essential hypertension I10 Active 1819853 Problem Nicotine dependence F17.200 Active 34034347 ALLERGIES Unknown Allergies SOCIAL HISTORY No smoking Hx information available PLAN OF CARE VITAL SIGNS MEDICATIONS Medication Instructions Dosage Frequency Start Date End Date Duration Status Carafate 1 GM Orally every 8 hours, PRN 1 tablet on an empty stomach Aug, Active RESULTS No Results PROCEDURES No Known procedures IMMUNIZATIONS No Known Immunizations
--- OUTSIDE RECORDS SUMMARY | 2017-07-23 10:27 | XMS REPORT ---
Author Author KATE MARTELL [facility] eClinicalWorks Address Unknown Phone Unavailable Care Team Providers Care Sausage Stuffer Name Role Phone KATE MARTELL CP Unavailable [...] GERD (gastroesophageal reflux disease) K21.9 Active Medications No Known Medications Results No Known Results Summary Purpose eClinicalWorks Submission
--- OUTSIDE RECORDS SUMMARY | 2017-07-23 10:27 | XMS REPORT ---
Author Author FABIAN MCGHEE [facility] eClinicalWorks Address Unknown Phone Unavailable Care Team Providers Care Transportation Director Name Role Phone FABIAN MCGHEE CP Unavailable Allergies, Adverse Reactions, Alerts Substance Reaction Event Type N.K.D.A. 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 Active Problem Pain in joint, ankle and foot 719.47 Active Problem Reflux esophagitis 530.11 Active Problem Lumbago 724.2 Active Problem Essential hypertension, benign 401.1 Active Problem Chronic airway obstruction, not elsewhere classified 496 Active Problem Other and unspecified hyperlipidemia 272.4 Active Problem Anxiety state, unspecified 300.00 Active Medications Medication Code System Code Instructions Start Date End Date Status Dosage ProAir HFA [facility] 95045682102 90 INHALE TWO PUFFS BY MOUTH EVERY 4 HOURS NEEDED FOR SHORTNESS OF BREATH / COUGH Tenormin [facility] [address]-50 50 MG Orally Once a day 1 tablet Imitrex [facility] [address]-39 50 mg Apr 26, 2014 1 tablet by Oral route 1 time per day and repeat once more after 2 hours if headache recurs PRN Spiriva HandiHaler [facility] [address]-15 18 MCG Inhalation Once a day 1 capsule Albuterol Sulfate [facility] [address]-29 1.25 mg/3 mL Apr 26, 2014 1 Each by Inhalation route 4 times per day PRN prn wheezing Triamcinolone Acetonide [facility] [address]-67 0.1 % Externally Twice a day February 12, 2015 1 application to affected area Adderall [facility] [address]-59 20 MG Orally 3 times a day for aDHD DR. Gomez to sign for Dexter 1 tablet in the morning promethazine [place] 0 25 mg October 22, 2014 1 tablet by Oral route every 6 hours PRN Paxil [facility] [address]-18 40 MG Orally Once a day 1 tablet in the morning Fexofenadine HCl [facility] [address]-93 180 MG Orally Once a day 1 tablet Hydrocodone-Acetaminophen [facility] [address]-14 10-325 MG Orally 3 times a day October 22, 2014 1 tablet as needed Cymbalta [facility] [address]-74 30 MG Orally Once a day 1 capsule Clonazepam [facility] [address]-34 1 MG 1 TAB orally 3 times a day Sep 26, 2014 1 tablet by Oral route 3 times per day PRN anxiety Fluticasone Propionate [facility] 89567386098 [address] TWO SPRAYS IN EACH NOSTRIL ONCE DAILY Ibuprofen [facility] [address]-94 800 MG Orally Three times a day 1 tablet Ranitidine HCl [facility] [address]-69 300 MG Orally Twice a day 1 tablet Procedures Procedure Coding System Code Date Office Visit, Est Pt., Level 3 CPT-4 29843 May 10, 2015 [facility] VISIT ESTABLISHED PATIENT CPT-4 G0467 May 10, 2015 Vital Signs Date/Time: May 10, 2015 Cardiac Monitoring Heart Rate 68 bpm Weight 336.3 lbs Height 68 in BMI 51.13 Index Blood Pressure Diastolic 62 mmHg Blood Pressure Systolic 114 mmHg Results No Known Results Summary Purpose eClinicalWorks Submission
--- OUTSIDE RECORDS SUMMARY | 2017-07-23 10:27 | XMS REPORT ---
Author Author FABIAN Holt Organization [facility] Address Unknown Care Team Providers Care Core Cleaner Name Role Phone FABIAN Holt Unavailable PROBLEMS Type Condition ICD9-CM Code [id number] Code Onset Dates Condition Status SNOMED Code Problem Gout involving toe of right foot, unspecified cause, unspecified chronicity M10.9 Active 037460691 Problem Generalized anxiety disorder F41.1 Active 22898891 Problem Major depression, chronic F32.9 Active 04947531 Problem Calculus of gallbladder without cholecystitis without obstruction K80.20 Active 159250283 Problem Major depression, recurrent F33.9 Active 12108710 Problem Chronic obstructive pulmonary disease, unspecified J44.9 Active 20548634 Problem Cigarette nicotine dependence without complication F17.210 Active 01746022 Problem Attention deficit hyperactivity disorder F90.9 Active 547123476 Problem Chronic obstructive pulmonary disease, unspecified COPD type J44.9 Active 92528882 Problem COPD (chronic obstructive pulmonary disease) J44.9 Active 30728015 Problem GERD (gastroesophageal reflux disease) K21.9 Active 604016499 Problem Low back pain M54.5 Active 186308085 Problem Benign essential hypertension I10 Active 7115904 Problem Nicotine dependence F17.200 Active 31805622 ALLERGIES No Information SOCIAL HISTORY Never Assessed PLAN OF CARE VITAL SIGNS MEDICATIONS Medication Instructions Dosage Frequency Start Date End Date Duration Status Adderall 20 mg Orally 3 times a day for aDHD 1 tablet Jan, 28 days Active RESULTS No Results [...]
--- OUTSIDE RECORDS SUMMARY | 2017-07-23 10:28 | XMS REPORT ---
Author Author KATE MARTELL [facility] Address [address] [place] [address] Care Team Providers Care Clinical Research Tech Name Role Phone KATE MARTELL Unavailable PROBLEMS Type Condition ICD9-CM Code [id number] Code Onset Dates Condition Status SNOMED Code Problem Gout involving toe of right foot, unspecified cause, unspecified chronicity M10.9 Active 464432949 Problem Generalized anxiety disorder F41.1 Active 27576451 Problem Major depression, chronic F32.9 Active 25218022 Problem Calculus of gallbladder without cholecystitis without obstruction K80.20 Active 951696059 Problem Major depression, recurrent F33.9 Active 21361870 Problem Chronic obstructive pulmonary disease, unspecified J44.9 Active 86597261 Problem Cigarette nicotine dependence without complication F17.210 Active 48574378 Problem Attention deficit hyperactivity disorder F90.9 Active 029765705 Problem Chronic obstructive pulmonary disease, unspecified COPD type J44.9 Active 51056431 Problem COPD (chronic obstructive pulmonary disease) J44.9 Active 68047998 Problem GERD (gastroesophageal reflux disease) K21.9 Active 739662428 Problem Low back pain M54.5 Active 534763900 Problem Benign essential hypertension I10 Active 8731865 Problem Nicotine dependence F17.200 Active 17420287 ALLERGIES Substance Reaction Event Type Date Status N.K.D.A. Unknown Non Drug Allergy Aug, Unknown SOCIAL HISTORY No smoking Hx information available PLAN OF CARE Activity Details Follow Up 3 Months Reason: VITAL SIGNS Height 68 in 2016-09-15 Weight 320 lbs 2016-09-15 Temperature 98.0 degrees Fahrenheit 2016-09-15 Heart Rate 70 bpm 2016-09-15 Respiratory Rate 24 2016-09-15 BMI 48.65 kg/m2 2016-09-15 Blood pressure systolic 120 mmHg 2016-09-15 Blood pressure diastolic 68 mmHg 2016-09-15 MEDICATIONS Medication Instructions Dosage Frequency Start Date End Date Duration Status Cymbalta 60 MG Orally Once a day 1 capsule 24h December, 30 days Active Omeprazole 20 mg Orally Once a day 1 24h 27 Jul, 2016 Active Paxil 40 MG Orally Once a day 1 tablet in the morning 24h 30 days Active Tenormin 50 TAKE ONE TABLET BY MOUTH DAILY 30 Active Adderall 20 mg Orally 3 times a day for aDHD 1 tablet Aug, 28 days Active Cyclobenzaprine HCl 10 TAKE ONE TABLET BY MOUTH THREE TIMES A DAY 10 Active Albuterol Sulfate 1.25 mg/3 mL 1 Each by Inhalation route 4 times per day PRN prn wheezing Apr, Active Carafate 1 GM Orally every 8 hours, PRN 1 tablet on an empty stomach Aug, Active Clonazepam 1 MG 1 tablet Sep, 30 days Active Triamcinolone Acetonide 0.1 % Externally Twice a day 1 application to affected area 12h Jan, Active promethazine 25 mg 1 tablet by Oral route every 6 hours PRN Oct, Active Hydrocodone-Acetaminophen 10-325 MG Orally 3 times a day 1 tablet as needed 8h 17 Aug, 2016 Active Ibuprofen 800 TAKE ONE TABLET BY MOUTH THREE TIMES A DAY 33 Active Imitrex 50 TAKE 1 TABLET BY MOUTH DAILY NEEDED FOR HEADACHE. MAY REPEAT ONCE AFTER 2 HOURS 5 Active Spiriva Respimat 2.5 MCG/ACT Inhalation Once a day 2 puffs 24h Jun, Active Fluticasone Propionate [address] TWO SPRAYS IN EACH NOSTRIL ONCE DAILY 30 Active RESULTS No Results PROCEDURES Procedure Date Ordered Related Diagnosis Body Site [facility] Sep 15, 2016 VENIPUNCT, ROUTINE* Sep 15, 2016 Office Visit, Est Pt., Level 2 Sep 15, 2016 [facility] VISIT ESTABLISHED PATIENT Sep 15, 2016 IMMUNIZATIONS No Known Immunizations
--- OUTSIDE RECORDS SUMMARY | 2017-07-23 10:28 | XMS REPORT ---
Author Author KATE MARTELL [facility] Address [address] [place] [address] Care Team Providers Care Transportation Operations Manager Name Role Phone KATE MARTELL Unavailable PROBLEMS Type Condition ICD9-CM Code [id number] Code Onset Dates Condition Status SNOMED Code Problem Gout involving toe of right foot, unspecified cause, unspecified chronicity M10.9 Active 390406042 Problem Generalized anxiety disorder F41.1 Active 73958982 Problem Major depression, chronic F32.9 Active 80555892 Problem Calculus of gallbladder without cholecystitis without obstruction K80.20 Active 158142993 Problem Major depression, recurrent F33.9 Active 94998875 Problem Chronic obstructive pulmonary disease, unspecified J44.9 Active 19945583 Problem Cigarette nicotine dependence without complication F17.210 Active 17898286 Problem Attention deficit hyperactivity disorder F90.9 Active 577725249 Problem Chronic obstructive pulmonary disease, unspecified COPD type J44.9 Active 23368905 Problem GERD (gastroesophageal reflux disease) K21.9 Active 751808960 Problem Benign essential hypertension I10 Active 4036234 Problem Nicotine dependence F17.200 Active 11974164 Problem COPD (chronic obstructive pulmonary disease) J44.9 Active 67448540 Problem Low back pain M54.5 Active 870365824 ALLERGIES Substance Reaction Event Type Date Status N.K.D.A. Unknown Non Drug Allergy Jul, Unknown SOCIAL HISTORY No smoking Hx information available PLAN OF CARE Activity Details Follow Up 3 Months Reason: VITAL SIGNS Height 68 in 2016-08-11 Weight 322.5 lbs 2016-08-11 Temperature 97.7 degrees Fahrenheit 2016-08-11 Heart Rate 74 bpm 2016-08-11 Respiratory Rate 20 2016-08-11 Oximetry 97 % 2016-08-11 BMI 49.03 kg/m2 2016-08-11 Blood pressure systolic 112 mmHg 2016-08-11 Blood pressure diastolic 68 mmHg 2016-08-11 MEDICATIONS Medication Instructions Dosage Frequency Start Date End Date Duration Status Ibuprofen 800 TAKE ONE TABLET BY MOUTH THREE TIMES A DAY 33 Active Albuterol Sulfate 1.25 mg/3 mL 1 Each by Inhalation route 4 times per day PRN prn wheezing Apr, Active Cymbalta 60 MG Orally Once a day 1 capsule 24h December, 30 days Active Albuterol Sulfate 2.5 mg USE 1 VIAL IN NEBULIZER FOUR TIMES A DAY NEEDED FOR WHEEZING 30 Active Omeprazole 20 mg Orally Once a day 1 24h Jul, Active Spiriva Respimat 2.5 MCG/ACT Inhalation Once a day 2 puffs 24h Jun, Active Cymbalta 30 MG Orally Once a day 1 capsule 24h 30 days Active promethazine 25 mg 1 tablet by Oral route every 6 hours PRN Oct, Active Fexofenadine HCl 180 MG Orally Once a day 1 tablet 24h Active Cyclobenzaprine HCl 10 TAKE ONE TABLET BY MOUTH THREE TIMES A DAY 10 Active Clonazepam 1 MG 1 tablet Sep, Active Tenormin 50 TAKE ONE TABLET BY MOUTH DAILY 30 Active Cymbalta 60 TAKE ONE CAPSULE BY MOUTH DAILY 30 Active Paxil 40 MG Orally Once a day 1 tablet in the morning 24h 30 days Active Triamcinolone Acetonide 0.1 % Externally Twice a day 1 application to affected area 12h Jan, Active Ventolin HFA 108 (90 Base) MCG/ACT Inhalation every 4 hrs 2 puffs as needed 4h Aug, 30 days Active Fluticasone Propionate [address] TWO SPRAYS IN EACH NOSTRIL ONCE DAILY 30 Active Ventolin HFA 90 INHALE TWO PUFFS BY MOUTH EVERY 4 HOURS 16 Active Hydrocodone-Acetaminophen 10-325 MG Orally 3 times a day 1 tablet as needed 8h Jul, Active [facility] Allergy 180 TAKE ONE TABLET BY MOUTH ONCE A DAY 30 Active Spiriva HandiHaler 18 INHALE 1 CAPSULE INTO LUNGS ONCE DAILY USING HANDIHALER 30 Active Imitrex 50 TAKE 1 TABLET BY MOUTH DAILY NEEDED FOR HEADACHE. MAY REPEAT ONCE AFTER 2 HOURS 5 Active Adderall 20 mg Orally 3 times a day for aDHD 1 tablet Jun, Active RESULTS Name Result Date Reference Range LIPID PANEL 2016-08-11 Cholesterol, Total 213 100-199 Triglycerides 138 0-149 HDL Cholesterol 35 >39 VLDL Cholesterol William 28 5-40 LDL Cholesterol Calc 150 0-99 Comment: CMP 2016-08-11 Glucose, Serum 87 65-99 BUN 13 8-27 Creatinine, Serum 0.53 0.76-1.27 eGFR If NonAfricn Am 114 >59 eGFR If Africn Am 132 >59 BUN/Creatinine Ratio 25 10-22 Sodium, Serum 139 134-144 Potassium, Serum 4.4 3.5-5.2 Chloride, Serum 100 96-106 Carbon Dioxide, Total 23 18-29 Calcium, Serum 9.0 8.6-10.2 Protein, Total, Serum 6.3 6.0-8.5 Albumin, Serum 3.8 3.6-4.8 Globulin, Total 2.5 1.5-4.5 A/G Ratio 1.5 1.1-2.5 Bilirubin, Total 1.7 0.0-1.2 Alkaline Phosphatase, S 340 39-117 AST (SGOT) 65 0-40 ALT (SGPT) 105 0-44 PROCEDURES Procedure Date Ordered Related Diagnosis Body Site MEASURE BLOOD OXYGEN LEVEL Aug 11, 2016 LAB NOT BILLED BY [facility] Aug 11, 2016 Office Visit, Est Pt., Level 3 Aug 11, 2016 [facility] VISIT ESTABLISHED PATIENT Aug 11, 2016 VENIPUNCT, ROUTINE* Aug 11, 2016 IMMUNIZATIONS No Known Immunizations
--- OUTSIDE RECORDS SUMMARY | 2017-07-23 10:28 | XMS REPORT ---
Author Author KATE MARTELL Organization [facility] Address [address] [place] [address] Care Team Providers Care Sales Ambassador Name Role Phone KATE MARTELL Unavailable PROBLEMS Type Condition ICD9-CM Code [id number] Code Onset Dates Condition Status SNOMED Code Problem Gout involving toe of right foot, unspecified cause, unspecified chronicity M10.9 Active 907243898 Problem Generalized anxiety disorder F41.1 Active 68314841 Problem Major depression, chronic F32.9 Active 75887775 Problem Calculus of gallbladder without cholecystitis without obstruction K80.20 Active 819696001 Problem Major depression, recurrent F33.9 Active 00245786 Problem Chronic obstructive pulmonary disease, unspecified J44.9 Active 45694774 Problem Cigarette nicotine dependence without complication F17.210 Active 07181641 Problem Attention deficit hyperactivity disorder F90.9 Active 200022225 Problem Chronic obstructive pulmonary disease, unspecified COPD type J44.9 Active 37129944 Problem GERD (gastroesophageal reflux disease) K21.9 Active 117254381 Problem Benign essential hypertension I10 Active 8041043 Problem Nicotine dependence F17.200 Active 89537969 Problem COPD (chronic obstructive pulmonary disease) J44.9 Active 61338057 Problem Low back pain M54.5 Active 453681431 ALLERGIES Unknown Allergies SOCIAL HISTORY No smoking Hx information available PLAN OF CARE VITAL SIGNS MEDICATIONS Medication Instructions Dosage Frequency Start Date End Date Duration Status Hydrocodone-Acetaminophen 10-325 MG Orally 3 times a day 1 tablet as needed 8h 20 Jul, 2016 Active RESULTS No Results PROCEDURES No Known procedures IMMUNIZATIONS No Known Immunizations
--- OUTSIDE RECORDS SUMMARY | 2017-07-23 10:28 | XMS REPORT ---
Author Author KATE MARTELL [facility] eClinicalWorks Address Unknown Phone Unavailable Care Team Providers Care Coal Bagger Name Role Phone KATE MARTELL CP Unavailable Allergies No Known Allergies Problems Problem Type Condition Code Onset Dates Condition Status Assessment Chronic obstructive pulmonary disease, unspecified COPD type J44.9 Active Problem GERD (gastroesophageal reflux disease) K21.9 Active Problem COPD (chronic obstructive pulmonary disease) J44.9 Active Problem Chronic obstructive pulmonary disease, unspecified J44.9 Active Problem Cigarette nicotine dependence without complication F17.210 Active Problem Chronic obstructive pulmonary disease, unspecified COPD type J44.9 Active Problem Nicotine dependence F17.200 Active Problem Benign essential hypertension I10 Active Problem Gout involving toe of right foot, unspecified cause, unspecified chronicity M10.9 Active Problem Low back pain M54.5 Active Medications Medication Code System Code Instructions Start Date End Date Status Dosage Spiriva Respimat [facility] [address]-55 2.5 MCG/ACT Inhalation Once a day Jun 2 puffs Results No Known Results Summary Purpose eClinicalWorks Submission
--- OUTSIDE RECORDS SUMMARY | 2017-07-23 10:28 | XMS REPORT ---
Author Author FABIAN MCGHEE Organization [employer] Address Unknown Phone Unavailable Care Team Providers Care Sausage Meat Trimmer Name Role Phone FABIAN MCGHEE CP Unavailable [...] Start Date End Date Status Dosage Cymbalta [facility] [address]-93 30 MG Orally Once a day 1 capsule Paxil [facility] [address]-21 40 MG Orally Once a day 1 tablet in the morning Clonazepam [facility] [address]-09 1 MG 1 TAB orally 3 times a day Sep 26, 2014 1 tablet by Oral route 3 times per day PRN anxiety Results No Known Results Summary Purpose eClinicalWorks Submission
--- OUTSIDE RECORDS SUMMARY | 2017-07-23 10:28 | XMS REPORT ---
Author Author FABIAN MCGHEE Organization [employer] Address Unknown Phone Unavailable Care Team Providers Care Aquatics Group Fitness Instructor Name Role Phone FABIAN MCGHEE CP Unavailable Allergies No Known Allergies Problems Problem Type Condition Code Onset Dates Condition Status Problem Back pain M54.9 Active Problem GERD (gastroesophageal reflux disease) K21.9 Active Problem Benign essential hypertension I10 Active Problem COPD (chronic obstructive pulmonary disease) J44.9 Active Medications Medication Code System Code Instructions Start Date End Date Status Dosage Adderall [facility] [address]-83 20 MG Orally 3 times a day for aDHD Dr Gomez to sign for Dexter 1 tablet in the morning Results No Known Results Summary Purpose eClinicalWorks Submission
--- OUTSIDE RECORDS SUMMARY | 2017-07-23 10:28 | XMS REPORT ---
Author KATE [facility] eClinicalWorks Address Unknown Phone Unavailable Care Team Providers Care Field Sampling Technician Name Role Phone KATE MARTELL Unavailable Allergies, Adverse Reactions, Alerts Substance Reaction Event Type N.K.D.A. Info Not Available Non Drug Allergy Problems Problem Type Condition Code Onset Dates Condition Status Assessment COPD (chronic obstructive pulmonary disease) J44.9 Active Problem Back pain M54.9 Active Problem GERD (gastroesophageal reflux disease) K21.9 Active Problem Benign essential hypertension I10 Active Assessment Back pain M54.9 Active Assessment GERD (gastroesophageal reflux disease) K21.9 Active Problem COPD (chronic obstructive pulmonary disease) J44.9 Active Assessment Benign essential hypertension I10 Active Medications Medication Code System Code Instructions Start Date End Date Status Dosage Fluticasone Propionate [facility] [address]86[address] TWO SPRAYS IN EACH NOSTRIL ONCE DAILY Spiriva HandiHaler [facility] 29794712215 18 INHALE 1 CAPSULE INTO LUNGS ONCE DAILY USING HANDIHALER promethazine ND 0 25 mg October 22, 2014 1 tablet by Oral route every 6 hours PRN Tenormin [facility] [address]-22 50 MG Orally Once a day 1 tablet Albuterol Sulfate [facility] [address]-62 1.25 mg/3 mL Apr 26, 2014 1 Each by Inhalation route 4 times per day PRN prn wheezing Adderall [facility] [address]-98 20 MG Orally 3 times a day for aDHD Dr Martell to sign for Dexter 1 [place] the [place] [address]-37 30 MG Orally Once a day 1 capsule Imitrex [facility] [address]-56 50 mg Apr 26, 2014 1 tablet by Oral route 1 time per day and repeat once more after 2 hours if headache recurs PRN Ranitidine HCl [facility] [address]-80 300 MG Orally Twice a day 1 tablet Fexofenadine HCl [facility] [address]-04 180 MG Orally Once a day 1 tablet Ibuprofen [facility] 93804284174 800 TAKE ONE TABLET BY MOUTH THREE TIMES A DAY Triamcinolone Acetonide [facility] [address]-61 0.1 % Externally Twice a day February 12, 2015 1 application to affected area Paxil [facility] [address]-56 40 MG Orally Once a day 1 tablet in the morning ProAir HFA [facility] 21550704295 90 INHALE TWO PUFFS BY MOUTH EVERY 4 HOURS NEEDED FOR SHORTNESS OF BREATH / COUGH Hydrocodone-Acetaminophen [facility] [address]-74 10-325 MG Orally 3 times a day October 22, 2014 1 tablet as needed Clonazepam [facility] [address]-42 1 MG 1 TAB orally 3 times a day Sep 26, 2014 1 tablet by Oral route 3 times per day PRN anxiety Procedures Procedure Coding System Code Date VENIPUNCT, ROUTINE* CPT-4 60487 Jul 19, 2015 [facility] VISIT ESTABLISHED PATIENT CPT-4 G0467 Jul 19, 2015 [facility] CPT-4 NOBLL Jul 19, 2015 Office Visit, Est Pt., Level 2 CPT-4 98094 Jul 19, 2015 Vital Signs Date/Time: Jul 19, 2015 Temperature 98.1 F Weight 333.8 lbs Height 68 in BMI 50.75 Index Blood Pressure Diastolic 70 mmHg Blood Pressure Systolic 120 mmHg Cardiac Monitoring Heart Rate 68 bpm Results Name Result Date Reference Range Unit Abnormality Flag CMP ----Calcium, Serum 9.6 20150719 8.6-10.2 mg/dL ----Carbon Dioxide, Total 23 20150719 18-29 mmol/L ----ALT (SGPT) 16 20150719 0-44 IU/L ----Creatinine, Serum 0.86 77317777 0.76-1.27 mg/dL ----AST (SGOT) 18 20150719 0-40 IU/L ----eGFR If NonAfricn Am 94 34179412 >59 mL/min/1.73 ----Alkaline Phosphatase, S 92 20150719 39-117 IU/L ----eGFR If Africn Am 109 80989012 >59 mL/min/1.73 ----Bilirubin, Total 0.4 20150719 0.0-1.2 mg/dL ----BUN/Creatinine Ratio 14 26691199 10-22 ----A/G Ratio 1.5 17059626 1.1-2.5 ----Sodium, Serum 136 40336493 134-144 mmol/L ----Globulin, Total 2.8 14304696 1.5-4.5 g/dL ----Potassium, Serum 4.7 93985774 3.5-5.2 mmol/L ----Glucose, Serum 99 07675959 65-99 mg/dL ----Chloride, Serum 99 73269473 97-108 mmol/L ----Albumin, Serum 4.2 49945592 3.6-4.8 g/dL ----BUN 12 00874378 8-27 mg/dL ----Protein, Total, Serum 7.0 57839035 6.0-8.5 g/dL ROUTINE VENIPUNCTURE LIPID PANEL ----VLDL Cholesterol William 25 28314928 5-40 mg/dL ----LDL Cholesterol Calc 117 02529567 0-99 mg/dL H ----Triglycerides 126 86256755 0-149 mg/dL ----HDL Cholesterol 47 71959985 >39 mg/dL ----Cholesterol, Total 189 35788998 100-199 mg/dL Summary Purpose eClinicalWorks Submission
--- OUTSIDE RECORDS SUMMARY | 2017-07-23 10:28 | XMS REPORT ---
Author Author DANIEL SMART Organization [employer] Address Unknown Phone Unavailable Care Team Providers Care Card Lacer Jacquard Name Role Phone DANIEL SMART Unavailable Allergies No Known Allergies Problems Problem [...]
--- OUTSIDE RECORDS SUMMARY | 2017-07-23 10:28 | XMS REPORT ---
Author Author KATE MARTELL [facility] eClinicalWorks Address Unknown Phone Unavailable Care Team Providers Care Shake Maker Name Role Phone KATE MARTELL CP Unavailable [...] Start Date End Date Status Dosage Hydrocodone-Acetaminophen [facility] [address]-54 10-325 MG Orally 3 times a day October 22, 2014 1 tablet as needed Results No Known Results Summary Purpose eClinicalWorks Submission
--- OUTSIDE RECORDS SUMMARY | 2017-07-23 10:28 | XMS REPORT ---
Author Author FABIAN MCGHEE Organization [employer] Address Unknown Phone Unavailable Care Team Providers Care Crew Chief Name Role Phone FABIAN MCGHEE CP Unavailable Allergies No Known Allergies Problems Problem Type Condition Code Onset Dates Condition Status Problem GERD (gastroesophageal reflux disease) K21.9 Active [...] Start Date End Date Status Dosage Clonazepam [facility] [address]-11 1 MG 3 times a day as needed Sep 26, 2014 1 tablet Adderall [facility] [address]-20 20 mg Orally 3 times a day for aDHD Jul 01, 2016 1 tablet Results No Known Results Summary Purpose eClinicalWorks Submission
--- OUTSIDE RECORDS SUMMARY | 2017-07-23 10:28 | XMS REPORT ---
Author Author FABIAN MCGHEE Organization [employer] Address Unknown Phone Unavailable Care Team Providers Care Supervisor [employer]ges [employer] Buildings Name Role Phone FABIAN MCGHEE CP Unavailable [...] Start Date End Date Status Dosage Adderall [facility] [address]-01 20 MG Orally 3 times a day for aDHD Dr Gomez to sign for Dexter 1 tablet in the morning Results No Known Results Summary Purpose eClinicalWorks Submission
--- OUTSIDE RECORDS SUMMARY | 2017-07-23 10:28 | XMS REPORT ---
Author Author FABIAN MCGHEE Organization [employer] Address Unknown Phone Unavailable Care Team Providers Care Spline Rolling Machine Job Setter Name Role Phone FABIAN MCGHEE CP Unavailable [...] Start Date End Date Status Dosage Clonazepam [facility] [address]-64 1 MG 3 times a day as needed Sep 26, 2014 1 tablet Results No Known Results Summary Purpose eClinicalWorks Submission
--- OUTSIDE RECORDS SUMMARY | 2017-07-23 10:29 | XMS REPORT ---
Author Author KATE MARTELL [facility] eClinicalWorks Address Unknown Phone Unavailable Care Team Providers Care Football Scout Name Role Phone KATE MARTELL CP Unavailable Allergies No Known Allergies Problems Problem Type Condition Code Onset Dates Condition Status Problem Back pain M54.9 Active Problem GERD (gastroesophageal reflux disease) K21.9 Active Problem Benign essential hypertension I10 Active Problem COPD (chronic obstructive pulmonary disease) J44.9 Active Medications Medication Code System Code Instructions Start Date End Date Status Dosage Hydrocodone-Acetaminophen [facility] [address]-52 10-325 MG Orally 3 times a day October 22, 2014 1 tablet as needed Results No Known Results Summary Purpose eClinicalWorks Submission
--- OUTSIDE RECORDS SUMMARY | 2017-07-23 10:29 | XMS REPORT ---
Author Author KATE MARTELL [facility] eClinicalWorks Address Unknown Phone Unavailable Care Team Providers Care Printed Circuit Board Panels Deburrer Name Role Phone KATE MARTELL CP Unavailable Allergies No Known Allergies Problems Problem Type Condition Code Onset Dates Condition Status Problem Back pain M54.9 Active Problem GERD (gastroesophageal reflux disease) K21.9 Active Problem Benign essential hypertension I10 Active Problem COPD (chronic obstructive pulmonary disease) J44.9 Active Medications Medication Code System Code Instructions Start Date End Date Status Dosage Ventolin HFA [facility] [address]-20 108 (90 Base) MCG/ACT Inhalation every 4 hrs Aug 22, 2015 2 puffs as needed Results No Known Results Summary Purpose eClinicalWorks Submission
--- OUTSIDE RECORDS SUMMARY | 2017-07-23 10:29 | XMS REPORT ---
Author Author FABIAN MCGHEE Organization [employer] Address Unknown Phone Unavailable Care Team Providers Care Heating Equipment Repairer Name Role Phone FABIAN MCGHEE CP Unavailable Allergies No Known Allergies Problems Problem Type Condition Code Onset Dates Condition Status Problem Back pain M54.9 Active Problem GERD (gastroesophageal reflux disease) K21.9 Active Problem Benign essential hypertension I10 Active Problem COPD (chronic obstructive pulmonary disease) J44.9 Active Medications Medication Code System Code Instructions Start Date End Date Status Dosage Clonazepam [facility] [address]-99 1 MG 1 TAB orally 3 times a day Sep 26, 2014 1 tablet by Oral route 3 times per day PRN anxiety Results No Known Results Summary Purpose eClinicalWorks Submission
--- OUTSIDE RECORDS SUMMARY | 2017-07-23 10:29 | XMS REPORT ---
Author Author KATE MARTELL [facility] Address [address] [place] [address] Care Team Providers Care Manufacturing Associate Name Role Phone KATE MARTELL Unavailable PROBLEMS Type Condition ICD9-CM Code HRE88-HK Code Onset Dates Condition Status SNOMED Code Problem Gout involving toe of right foot, unspecified cause, unspecified chronicity M10.9 Active 290829235 Problem Generalized anxiety disorder F41.1 Active 22389059 Problem Major depression, chronic F32.9 Active 88919371 Problem Calculus of gallbladder without cholecystitis without obstruction K80.20 Active 102340629 Problem Major depression, recurrent F33.9 Active 34113676 Problem Chronic obstructive pulmonary disease, unspecified J44.9 Active 04803292 Problem Cigarette nicotine dependence without complication F17.210 Active 49692615 Problem Attention deficit hyperactivity disorder F90.9 Active 063568177 Problem Chronic obstructive pulmonary disease, unspecified COPD type J44.9 Active 12414601 Problem COPD (chronic obstructive pulmonary disease) J44.9 Active 64739115 Problem GERD (gastroesophageal reflux disease) K21.9 Active 176072546 Problem Low back pain M54.5 Active 357766896 Problem Benign essential hypertension I10 Active 6767219 Problem Nicotine dependence F17.200 Active 97690333 ALLERGIES No Information SOCIAL HISTORY Never Assessed PLAN OF CARE VITAL SIGNS MEDICATIONS Medication Instructions Dosage Frequency Start Date End Date Duration Status Hydrocodone-Acetaminophen 10-325 MG Orally 3 times a day 1 tablet as needed 8h Oct, Nov, 28 days Active RESULTS No Results PROCEDURES [...]
--- OUTSIDE RECORDS SUMMARY | 2017-07-23 10:29 | XMS REPORT ---
Author Author KATE MARTELL [facility] eClinicalWorks Address Unknown Phone Unavailable Care Team Providers Care Narcotics Investigator Name Role Phone KATE MARTELL CP Unavailable [...] Start Date End Date Status Dosage Hydrocodone-Acetaminophen [facility] [address]-44 10-325 MG Orally 3 times a day October 22, 2014 1 tablet as needed Results No Known Results Summary Purpose eClinicalWorks Submission
--- OUTSIDE RECORDS SUMMARY | 2017-07-23 10:29 | XMS REPORT ---
Author Author KATE MARTELL [facility] e[employer] Address Unknown Phone Unavailable Care Team Providers Care Coil Wrapper Name Role Phone KATE MARTELL CP Unavailable Allergies No Known Allergies Problems Problem Type Condition Code Onset Dates Condition Status Problem Nicotine dependence F17.200 Active Problem Benign essential hypertension I10 Active Problem Low back pain M54.5 Active Problem COPD (chronic obstructive pulmonary disease) J44.9 Active Assessment Back pain M54.9 Active Problem Back pain M54.9 Active Problem GERD (gastroesophageal reflux disease) K21.9 Active Medications Medication Code System Code Instructions Start Date End Date Status Dosage Hydrocodone-Acetaminophen [facility] [address]-98 10-325 MG Orally 3 times a day October 22, 2014 1 tablet as needed Results No Known Results Summary Purpose eClinicalWorks Submission
--- OUTSIDE RECORDS SUMMARY | 2017-07-23 10:29 | XMS REPORT ---
Author Author FABIAN MCGHEE Organization [facility] Address Unknown Care Team Providers Care Linux Support Engineer Name Role Phone FABIAN MCGHEE Unavailable PROBLEMS Type Condition ICD9-CM Code [id number] Code Onset Dates Condition Status SNOMED Code Problem Gout involving toe of right foot, unspecified cause, unspecified chronicity M10.9 Active 605083389 Problem Generalized anxiety disorder F41.1 Active 12154936 Problem Major depression, chronic F32.9 Active 28060080 Problem Calculus of gallbladder without cholecystitis without obstruction K80.20 Active 302693422 Problem Major depression, recurrent F33.9 Active 86932243 Problem Chronic obstructive pulmonary disease, unspecified J44.9 Active 34551340 Problem Cigarette nicotine dependence without complication F17.210 Active 11311481 Problem Attention deficit hyperactivity disorder F90.9 Active 420115936 Problem Chronic obstructive pulmonary disease, unspecified COPD type J44.9 Active 40244248 Problem COPD (chronic obstructive pulmonary disease) J44.9 Active 50085792 Problem GERD (gastroesophageal reflux disease) K21.9 Active 714271462 Problem Low back pain M54.5 Active 679721892 Problem Benign essential hypertension I10 Active 7461277 Problem Nicotine dependence F17.200 Active 11693894 ALLERGIES Unknown Allergies SOCIAL HISTORY No smoking Hx information available PLAN OF CARE VITAL SIGNS MEDICATIONS Medication Instructions Dosage Frequency Start Date End Date Duration Status Adderall 20 mg Orally 3 times a day for aDHD 1 tablet Aug, 28 days Active RESULTS No Results PROCEDURES No Known procedures IMMUNIZATIONS No Known Immunizations
--- OUTSIDE RECORDS SUMMARY | 2017-07-23 10:29 | XMS REPORT ---
Author Author KATE MARTELL [facility] eClinicalWorks Address Unknown Phone Unavailable Care Team Providers Care Livestock Yard Supervisor Name Role Phone KATE MARTELL CP Unavailable Allergies No Known Allergies Problems Problem Type Condition Code Onset Dates Condition Status Assessment Back pain M54.9 Active Problem GERD (gastroesophageal [...] Start Date End Date Status Dosage Hydrocodone-Acetaminophen [facility] [address]-18 10-325 MG Orally 3 times a day October 22, 2014 1 tablet as needed Results No Known Results Summary Purpose eClinicalWorks Submission
--- OUTSIDE RECORDS SUMMARY | 2017-07-23 10:29 | XMS REPORT ---
Author Author KATE MARTELL [facility] eClinicalWorks Address Unknown Phone Unavailable Care Team Providers Care Public Information Relations Manager Name Role Phone KATE MARTELL CP [...]
--- OUTSIDE RECORDS SUMMARY | 2017-07-23 10:29 | XMS REPORT ---
Author Author FABIAN Holt Organization [facility] Address Unknown Care Team Providers Care Wastewater Treatment Plant Attendant Name Role Phone FABIAN Holt Unavailable PROBLEMS Type Condition ICD9-CM Code [id number] Code Onset Dates Condition Status SNOMED Code Problem Gout involving toe of right foot, unspecified cause, unspecified chronicity M10.9 Active 366163181 Problem Generalized anxiety disorder F41.1 Active 87231949 Problem Major depression, chronic F32.9 Active 16913682 Problem Calculus of gallbladder without cholecystitis without obstruction K80.20 Active 284618169 Problem Major depression, recurrent F33.9 Active 34794816 Problem Chronic obstructive pulmonary disease, unspecified J44.9 Active 20492180 Problem Cigarette nicotine dependence without complication F17.210 Active 49708836 Problem Attention deficit hyperactivity disorder F90.9 Active 154580227 Problem Chronic obstructive pulmonary disease, unspecified COPD type J44.9 Active 14923523 Problem COPD (chronic obstructive pulmonary disease) J44.9 Active 59233913 Problem GERD (gastroesophageal reflux disease) K21.9 Active 678386400 Problem Low back pain M54.5 Active 184030544 Problem Benign essential hypertension I10 Active 1167438 Problem Nicotine dependence F17.200 Active [id number] ALLERGIES No Information SOCIAL HISTORY Never Assessed PLAN OF CARE VITAL SIGNS MEDICATIONS Medication Instructions Dosage Frequency Start Date End Date Duration Status Adderall 20 mg Orally 3 times a day for aDHD 1 tablet Sep, 28 days Active RESULTS No Results PROCEDURES [...]
[2017-07-23] MEDS ORDERED: PIPERACILLIN SODIUM/TAZOBACTAM 4.5 GM in NS (IVPB) 100 ML IV ONE (10:30)
[2017-07-23] MEDS ORDERED: LACTATED RINGERS 2,000 ML IV ONE (10:30)
--- OUTSIDE RECORDS SUMMARY | 2017-07-23 10:30 | XMS REPORT | Continuity of Care Document ---
Author Author [facility] Address Unknown Phone Unavailable Allergies Medications Problems Date Dx Coded Attending Type Code Diagnosis Diagnosed By 03/21/2009 JEANNE DIAZ APRN 278.00 OBESITY UNSPECIFIED 03/21/2009 JEANNE DIAZ APRN 305.1 NICOTINE DEPENDENCE 03/21/2009 JEANNE DIAZ APRN 401.1 ESSENTIAL HYPERTENSION BENIGN 03/21/2009 JEANNE DIAZ APRN 496 CHRONIC OBSTRUCTIVE PULMONARY DISEASE 03/21/2009 JEANNE DIAZ APRN 716.90 ARTHROPATHY 03/21/2009 JEANNE DIAZ APRN 720.0 ANKYLOSING SPONDYLITIS 03/21/2009 JEANNE DIAZ APRN 278.00 OBESITY UNSPECIFIED 03/21/2009 JEANNE DIAZ APRN 305.1 NICOTINE DEPENDENCE 03/21/2009 JEANNE DIAZ APRN 401.1 ESSENTIAL HYPERTENSION BENIGN 03/21/2009 JEANNE DIAZ APRN 496 CHRONIC OBSTRUCTIVE PULMONARY DISEASE 03/21/2009 JEANNE DIAZ APRN 716.90 ARTHROPATHY 03/21/2009 JEANNE DIAZ APRN 720.0 ANKYLOSING SPONDYLITIS 03/21/2009 278.00 OBESITY UNSPECIFIED 03/21/2009 305.1 NICOTINE DEPENDENCE 03/21/2009 401.1 ESSENTIAL HYPERTENSION BENIGN 03/21/2009 496 CHRONIC OBSTRUCTIVE PULMONARY DISEASE 03/21/2009 716.90 ARTHROPATHY 03/21/2009 720.0 ANKYLOSING SPONDYLITIS 03/21/2009 JEANNE DIAZ APRN 278.00 OBESITY UNSPECIFIED 03/21/2009 JEANNE DIAZ APRN 305.1 NICOTINE DEPENDENCE 03/21/2009 JEANNE DIAZ APRN 401.1 ESSENTIAL HYPERTENSION BENIGN 03/21/2009 JEANNE DIAZ APRN 496 CHRONIC OBSTRUCTIVE PULMONARY DISEASE 03/21/2009 JEANNE DIAZ APRN 716.90 ARTHROPATHY 03/21/2009 EMILY DEWITT, JEANNE CORTES 720.0 ANKYLOSING SPONDYLITIS 03/21/2009 JAYSHREE MATHEWS, KATE 278.00 OBESITY UNSPECIFIED 03/21/2009 JAYSHREE MATHEWS, KATE 305.1 NICOTINE DEPENDENCE 03/21/2009 JAYSHREE MATHEWS, KATE 401.1 ESSENTIAL HYPERTENSION BENIGN 03/21/2009 JAYSHREE MATHEWS, KATE 496 CHRONIC OBSTRUCTIVE PULMONARY DISEASE 03/21/2009 JAYSHREE MATHEWS, KATE 716.90 ARTHROPATHY 03/21/2009 JAYSHREE MATHEWS, KATE 720.0 ANKYLOSING SPONDYLITIS 03/21/2009 JAYSHREE MATHEWS, KATE 278.00 OBESITY UNSPECIFIED 03/21/2009 JAYSHREE MATHEWS, KATE 305.1 NICOTINE DEPENDENCE 03/21/2009 JAYSHREE MATHEWS, KATE 401.1 ESSENTIAL HYPERTENSION BENIGN 03/21/2009 JAYSHREE MATHEWS, KATE 496 CHRONIC OBSTRUCTIVE PULMONARY DISEASE 03/21/2009 JAYSHREE MATHEWS, KATE 716.90 ARTHROPATHY 03/21/2009 JAYSHREE MATHEWS, KATE 720.0 ANKYLOSING SPONDYLITIS 03/21/2009 JAYSHREE MATHEWS, KATE 278.00 OBESITY UNSPECIFIED 03/21/2009 JAYSHREE MATHEWS, KATE 305.1 NICOTINE DEPENDENCE 03/21/2009 JAYSHREE MATHEWS, KATE 401.1 ESSENTIAL HYPERTENSION BENIGN 03/21/2009 JAYSHREE MATHEWS, KATE 49[place] CHRONIC OBSTRUCTIVE PULMONARY DISEASE 03/21/2009 JAYSHREE MATHEWS, KATE 71[place].90 ARTHROPATHY 03/21/2009 JAYSHREE MATHEWS, KATE 720.0 ANKYLOSING SPONDYLITIS 03/21/2009 JAYSHREE MATHEWS, KATE 278.00 OBESITY UNSPECIFIED 03/21/2009 JAYSHREE MATHEWS, KATE 305.1 NICOTINE DEPENDENCE 03/21/2009 JAYSHREE MATHEWS, KATE 401.1 ESSENTIAL HYPERTENSION BENIGN 03/21/2009 JAYSHREE MATHEWS, KATE [place] CHRONIC OBSTRUCTIVE PULMONARY DISEASE 03/21/2009 JAYSHREE MATHEWS, KATE 71[place].90 ARTHROPATHY 03/21/2009 JAYSHREE MATHEWS, KATE 720.0 ANKYLOSING SPONDYLITIS 03/21/2009 JAYSHREE MATHEWS, KATE 278.00 OBESITY UNSPECIFIED 03/21/2009 JAYSHREE MATHEWS, KATE 305.1 NICOTINE DEPENDENCE 03/21/2009 JAYSHREE MATHEWS, KATE 401.1 ESSENTIAL HYPERTENSION BENIGN 03/21/2009 JAYSHREE MATHEWS, KATE 496 CHRONIC OBSTRUCTIVE PULMONARY DISEASE 03/21/2009 JAYSHREE MATHEWS, KATE 716.90 ARTHROPATHY 03/21/2009 JAYSHREE MATHEWS, KATE 720.0 ANKYLOSING SPONDYLITIS 03/21/2009 JAYSHREE MATHEWS, KATE 278.00 OBESITY UNSPECIFIED 03/21/2009 JAYSHREE MATHEWS, KATE 305.1 NICOTINE DEPENDENCE 03/21/2009 JAYSHREE MATHEWS, KATE 401.1 ESSENTIAL HYPERTENSION BENIGN 03/21/2009 JAYSHREE MATHEWS, KATE 496 CHRONIC OBSTRUCTIVE PULMONARY DISEASE 03/21/2009 JAYSHREE MATHEWS, KATE 716.90 ARTHROPATHY 03/21/2009 JAYSHREE MATHEWS, KATE 720.0 ANKYLOSING SPONDYLITIS 03/21/2009 JAYSHREE MATHEWS, KATE 278.00 OBESITY UNSPECIFIED 03/21/2009 JAYSHREE MATHEWS, KATE 305.1 NICOTINE DEPENDENCE 03/21/2009 JAYSHREE MATHEWS, KATE 401.1 ESSENTIAL HYPERTENSION BENIGN 03/21/2009 JAYSHREE MATHEWS, KATE 496 CHRONIC OBSTRUCTIVE PULMONARY DISEASE 03/21/2009 JAYSHREE MATHEWS, KATE 716.90 ARTHROPATHY 03/21/2009 KATE MARTELL MD 720.0 ANKYLOSING SPONDYLITIS 03/21/2009 TAZ CISCO CERTIFIED NETWORK PROFESSIONAL, FABIAN M 278.00 OBESITY UNSPECIFIED 03/21/2009 TAZ CISCO CERTIFIED NETWORK PROFESSIONAL, FABIAN M 305.1 NICOTINE DEPENDENCE 03/21/2009 TAZ CISCO CERTIFIED NETWORK PROFESSIONAL, FABIAN M 401.1 ESSENTIAL HYPERTENSION BENIGN 03/21/2009 TAZ CISCO CERTIFIED NETWORK PROFESSIONAL, FABIAN M 496 CHRONIC OBSTRUCTIVE PULMONARY DISEASE 03/21/2009 TAZ CISCO CERTIFIED NETWORK PROFESSIONAL, FABIAN M 716.90 ARTHROPATHY 03/21/2009 TAZ CISCO CERTIFIED NETWORK PROFESSIONAL, FABIAN M 720.0 ANKYLOSING SPONDYLITIS 03/21/2009 TAZ CISCO CERTIFIED NETWORK PROFESSIONAL, FABIAN M 278.00 OBESITY UNSPECIFIED 03/21/2009 TAZ CISCO CERTIFIED NETWORK PROFESSIONAL, FABIAN M 305.1 NICOTINE DEPENDENCE 03/21/2009 TAZ CISCO CERTIFIED NETWORK PROFESSIONAL, FABIAN M 401.1 ESSENTIAL HYPERTENSION BENIGN 03/21/2009 TAZ CISCO CERTIFIED NETWORK PROFESSIONAL, FABIAN M 496 CHRONIC OBSTRUCTIVE PULMONARY DISEASE 03/21/2009 TAZ CISCO CERTIFIED NETWORK PROFESSIONAL, FABIAN M 716.90 ARTHROPATHY 03/21/2009 TAZ CISCO CERTIFIED NETWORK PROFESSIONAL, FABIAN M 720.0 ANKYLOSING SPONDYLITIS 03/21/2009 TAZ CISCO CERTIFIED NETWORK PROFESSIONAL, FABIAN M 278.00 OBESITY UNSPECIFIED 03/21/2009 TAZ CISCO CERTIFIED NETWORK PROFESSIONAL, FABIAN M 305.1 NICOTINE DEPENDENCE 03/21/2009 TAZ CISCO CERTIFIED NETWORK PROFESSIONAL, FABINA M 401.1 ESSENTIAL HYPERTENSION BENIGN 03/21/2009 TAZ SHARDA, FABIAN M 496 CHRONIC OBSTRUCTIVE PULMONARY DISEASE 03/21/2009 TAZ SHARDA, FABIAN M 716.90 ARTHROPATHY 03/21/2009 TAZ SHARDA, FABIAN M 720.0 ANKYLOSING SPONDYLITIS 03/21/2009 KATE MARTELL MD 278.00 OBESITY UNSPECIFIED 03/21/2009 KATE MARTELL MD 305.1 NICOTINE DEPENDENCE 03/21/2009 KATE MARTELL MD 401.1 ESSENTIAL HYPERTENSION BENIGN 03/21/2009 KATE MARTELL MD 496 CHRONIC OBSTRUCTIVE PULMONARY DISEASE 03/21/2009 KATE MARTELL MD 716.90 ARTHROPATHY 03/21/2009 KATE MARTELL MD 720.0 ANKYLOSING SPONDYLITIS 04/15/2009 EMILY DEWITT JEANNE SOPHIA 278.01 OBESITY MORBID 04/15/2009 JEANNE DIAZ APRN 401.9 Combined Systolic And Diastolic Elevation 04/15/2009 JEANNE DIAZ APRN 278.01 OBESITY MORBID 04/15/2009 JEANNE DIAZ APRN 401.9 Combined Systolic And Diastolic Elevation 04/15/2009 278.01 OBESITY MORBID 04/15/2009 401.9 Combined Systolic And Diastolic Elevation 04/15/2009 JEANNE DIAZ APRN 278.01 OBESITY MORBID 04/15/2009 EMILY DEWITT JEANNE SOPHIA 401.9 Combined Systolic And Diastolic Elevation 04/15/2009 KATE MARTELL MD 278.01 OBESITY MORBID 04/15/2009 KATE MARTELL MD 401.9 Combined Systolic And Diastolic Elevation 04/15/2009 KATE MARTELL MD 278.01 OBESITY MORBID 04/15/2009 KATE MARTELL MD 401.9 Combined Systolic And Diastolic Elevation 04/15/2009 KATE MARTELL MD 278.01 OBESITY MORBID 04/15/2009 KATE MARTELL MD 401.9 Combined Systolic And Diastolic Elevation 04/15/2009 KATE MARTELL MD 278.01 OBESITY MORBID 04/15/2009 KATE MARTELL MD 401.9 Combined Systolic And Diastolic Elevation 04/15/2009 KATE MARTELL MD 278.01 OBESITY MORBID 04/15/2009 KATE MARTELL MD 401.9 Combined Systolic And Diastolic Elevation 04/15/2009 KATE MARTELL MD 278.01 OBESITY MORBID 04/15/2009 JAYSHREE MATHEWS, KATE 401.9 Combined Systolic And Diastolic Elevation 04/15/2009 KATE MARTELL MD 278.01 OBESITY MORBID 04/15/2009 JAYSHREE MATHEWS, KATE 401.9 Combined Systolic And Diastolic Elevation 04/15/2009 TAZ CISCO CERTIFIED NETWORK PROFESSIONAL, FABIAN M 278.01 OBESITY MORBID 04/15/2009 TAZ CISCO CERTIFIED NETWORK PROFESSIONAL, FABIAN M 401.9 Combined Systolic And Diastolic Elevation 04/15/2009 TAZ CISCO CERTIFIED NETWORK PROFESSIONAL, FABIAN M 278.01 OBESITY MORBID 04/15/2009 TAZ CISCO CERTIFIED NETWORK PROFESSIONAL, FABIAN M 401.9 Combined Systolic And Diastolic Elevation 04/15/2009 TAZ CISCO CERTIFIED NETWORK PROFESSIONAL, FABIAN M 278.01 OBESITY MORBID 04/15/2009 TAZ CISCO CERTIFIED NETWORK PROFESSIONAL, FABIAN M 401.9 Combined Systolic And Diastolic Elevation 04/15/2009 KATE MARTELL MD 278.01 OBESITY MORBID 04/15/2009 KATE MARTELL MD 401.9 Combined Systolic And Diastolic Elevation 03/30/2011 DIAZ TWX OPERATOR, JEANNE CORTES 296.32 MO DEPRESSIVE RECURRENT MODERATE 03/30/2011 DIAZ TWX OPERATOR, JEANNE CORTES 314.00 ADHD INATTENTIVE 03/30/2011 DIAZ TWX OPERATOR, JEANNE CORTES 466.0 Acute Bronchitis 03/30/2011 DIAZ TWX OPERATOR, JEANNE CORTES 296.32 MO DEPRESSIVE RECURRENT MODERATE 03/30/2011 DIAZ TWX OPERATOR, JEANNE CORTES 314.00 ADHD INATTENTIVE 03/30/2011 DIAZ TWX OPERATOR, JEANNE CORTES 466.0 Acute Bronchitis 03/30/2011 296.32 MO DEPRESSIVE RECURRENT MODERATE 03/30/2011 314.00 ADHD INATTENTIVE 03/30/2011 466.0 Acute Bronchitis 03/30/2011 DIAZ TWX OPERATOR, JEANNE CORTES 296.32 MO DEPRESSIVE RECURRENT MODERATE 03/30/2011 DIAZ TWX OPERATOR, JEANNE SOPHIA 314.00 ADHD INATTENTIVE 03/30/2011 EMILY TWX OPERATOR, JEANNE MCNAMARAH 466.0 Acute Bronchitis 03/30/2011 KATE MARTELL MD 296.32 MO DEPRESSIVE RECURRENT MODERATE 03/30/2011 KATE MARTELL MD 314.00 ADHD INATTENTIVE 03/30/2011 KATE MARTELL MD 466.0 Acute Bronchitis 03/30/2011 KATE MARTELL MD 296.32 MO DEPRESSIVE RECURRENT MODERATE 03/30/2011 KATE MARTELL MD 314.00 ADHD INATTENTIVE 03/30/2011 JAYSHREE MATHEWS, KATE 466.0 Acute Bronchitis 03/30/2011 JAYSHREE MATHEWS, KATE 296.32 MO DEPRESSIVE RECURRENT MODERATE 03/30/2011 JAYSHREE MATHEWS, KATE 314.00 ADHD INATTENTIVE 03/30/2011 JYASHREE MATHEWS, KATE 466.0 Acute Bronchitis 03/30/2011 JAYSHREE MATHEWS, KATE 296.32 MO DEPRESSIVE RECURRENT MODERATE 03/30/2011 JAYSHREE MATHEWS, KATE 314.00 ADHD INATTENTIVE 03/30/2011 JAYSHREE MATHEWS, KATE 466.0 Acute Bronchitis 03/30/2011 JAYSHREE MATHEWS, KATE 296.32 MO DEPRESSIVE RECURRENT MODERATE 03/30/2011 JAYSHREE MATHEWS, KATE 314.00 ADHD INATTENTIVE 03/30/2011 JAYSHREE MATHEWS, KATE 466.0 Acute Bronchitis 03/30/2011 JAYSHREE MATHEWS, KATE 296.32 MO DEPRESSIVE RECURRENT MODERATE 03/30/2011 JAYSHREE MATHEWS, KATE 314.00 ADHD INATTENTIVE 03/30/2011 JAYSHREE MATHEWS, KATE 466.0 Acute Bronchitis 03/30/2011 JAYSHREE MATHEWS, KATE 296.32 MO DEPRESSIVE RECURRENT MODERATE 03/30/2011 JAYSHREE MATHEWS, KATE 314.00 ADHD INATTENTIVE 03/30/2011 JAYSHREE MATHEWS, KATE 466.0 Acute Bronchitis 03/30/2011 TAZ CISCO CERTIFIED NETWORK PROFESSIONAL, FABIAN M 296.32 MO DEPRESSIVE RECURRENT MODERATE 03/30/2011 TAZ CISCO CERTIFIED NETWORK PROFESSIONAL, FABIAN M 314.00 ADHD INATTENTIVE 03/30/2011 TAZ CISCO CERTIFIED NETWORK PROFESSIONAL, FABIAN M 466.0 Acute Bronchitis 03/30/2011 TAZ CISCO CERTIFIED NETWORK PROFESSIONAL, FABIAN M 296.32 MO DEPRESSIVE RECURRENT MODERATE 03/30/2011 TAZ CISCO CERTIFIED NETWORK PROFESSIONAL, FABIAN M 314.00 ADHD INATTENTIVE 03/30/2011 TAZ CISCO CERTIFIED NETWORK PROFESSIONAL, FABIAN M 466.0 Acute Bronchitis 03/30/2011 TAZ CISCO CERTIFIED NETWORK PROFESSIONAL, FABIAN M 296.32 MO DEPRESSIVE RECURRENT MODERATE 03/30/2011 TAZ CISCO CERTIFIED NETWORK PROFESSIONAL, FABIAN M 314.00 ADHD INATTENTIVE 03/30/2011 TAZ CISCO CERTIFIED NETWORK PROFESSIONAL, FABIAN M 466.0 Acute Bronchitis 03/30/2011 KATE MARTELL MD 296.32 MO DEPRESSIVE RECURRENT MODERATE 03/30/2011 JAYSHREE MATHEWS, KATE 314.00 ADHD INATTENTIVE 03/30/2011 JAYSHREE MATHEWS, KATE 466.0 Acute Bronchitis 05/15/2011 JEANNE DIAZ APRN 314.01 ADHD COMBINED 05/15/2011 EMILY DEWITT JEANNE CORTES 314.01 ADHD COMBINED 05/15/2011 314.01 ADHD COMBINED 05/15/2011 EMILY DEWITT, JEANNE CORTES 314.01 ADHD COMBINED 05/15/2011 JAYSHREE MATHEWS, KATE 314.01 ADHD COMBINED 05/15/2011 JAYSHREE MATHEWS, KATE 314.01 ADHD COMBINED 05/15/2011 JAYSHREE MATHEWS, KATE 314.01 ADHD COMBINED 05/15/2011 JAYSHREE MATHEWS, KATE 314.01 ADHD COMBINED 05/15/2011 JAYSHREE MATHEWS, KATE 314.01 ADHD COMBINED 05/15/2011 JAYSHREE MATHEWS, KATE 314.01 ADHD COMBINED 05/15/2011 JAYSHREE MATHEWS, KATE 314.01 ADHD COMBINED 05/15/2011 TAZ CISCO CERTIFIED NETWORK PROFESSIONAL, FABIAN M 314.01 ADHD COMBINED 05/15/2011 TAZ CISCO CERTIFIED NETWORK PROFESSIONAL, FABIAN M 314.01 ADHD COMBINED 05/15/2011 TAZ CISCO CERTIFIED NETWORK PROFESSIONAL, FABIAN M 314.01 ADHD COMBINED 05/15/2011 KATE MARTELL MD 314.01 ADHD COMBINED 05/29/2011 EMILY DEWITT JEANNE CORTES 300.02 AN GEN ANXIETY 05/29/2011 EMILY DEWITT JEANNE SOPHIA 300.02 AN GEN ANXIETY 05/29/2011 300.02 AN GEN ANXIETY 05/29/2011 JEANNE DIAZ APRN 300.02 AN GEN ANXIETY 05/29/2011 KATE MARTELL MD 300.02 AN GEN ANXIETY 05/29/2011 KATE MARTELL MD 300.02 AN GEN ANXIETY 05/29/2011 KATE MARTELL MD 300.02 AN GEN ANXIETY 05/29/2011 KATE MARTELL MD 300.02 AN GEN ANXIETY 05/29/2011 KATE MARTELL MD 300.02 AN GEN ANXIETY 05/29/2011 KATE MARTELL MD 300.02 AN GEN ANXIETY 05/29/2011 KATE MARTELL MD 300.02 AN GEN ANXIETY 05/29/2011 TAZ CISCO CERTIFIED NETWORK PROFESSIONAL, FABIAN M 300.02 AN GEN ANXIETY 05/29/2011 TAZ CISCO CERTIFIED NETWORK PROFESSIONAL, FABIAN M 300.02 AN GEN ANXIETY 05/29/2011 TAZ CISCO CERTIFIED NETWORK PROFESSIONAL, FABIAN M 300.02 AN GEN ANXIETY 05/29/2011 KATE MARTELL MD 300.02 AN GEN ANXIETY 06/25/2011 EMILY DEWITTJEANNE V04.81 Flu Dx (medicare Only) 06/25/2011 EMILY DEWITT JEANNE CORTES V04.81 Flu Dx (medicare Only) 06/25/2011 V04.81 Flu Dx (medicare Only) 06/25/2011 EMILY DEWITT JEANNE CORTES V04.81 Flu Dx (medicare Only) 06/25/2011 KATE MARTELL MD V04.81 Flu Dx (medicare Only) 06/25/2011 JAYSHREE MATHEWS, KATE V04.81 Flu Dx (medicare Only) 06/25/2011 JAYSHREE MATHEWS, KATE V04.81 Flu Dx (medicare Only) 06/25/2011 JAYSHREE MATHEWS, KATE V04.81 Flu Dx (medicare Only) 06/25/2011 JAYSHREE MATHEWS, KATE V04.81 Flu Dx (medicare Only) 06/25/2011 JAYSHREE MATHEWS, KATE V04.81 Flu Dx (medicare Only) 06/25/2011 KATE MARTELL MD V04.81 Flu Dx (medicare Only) 06/25/2011 FABIAN DEGROOT V04.81 Flu Dx (medicare Only) 06/25/2011 FABIAN DEGROOT M V04.81 Flu Dx (medicare Only) 06/25/2011 FABIAN DEGROOT M V04.81 Flu Dx (medicare Only) 06/25/2011 KATE MARTELL MD V04.81 Flu Dx (medicare Only) 09/04/2011 EMILY DEWITT JEANNE CORTES 300.00 AN ANXIETY UNSPEC 09/04/2011 EMILY DEWITT JEANNE SOPHIA 300.00 AN ANXIETY UNSPEC 09/04/2011 300.00 AN ANXIETY UNSPEC 09/04/2011 EMILY DEWITT JEANNE SOPHIA 300.00 AN ANXIETY UNSPEC 09/04/2011 KATE MARTELL MD 300.00 AN ANXIETY UNSPEC 09/04/2011 KATE MARTELL MD 300.00 AN ANXIETY UNSPEC 09/04/2011 KATE MARTELL MD 300.00 AN ANXIETY UNSPEC 09/04/2011 KATE MARTELL MD 300.00 AN ANXIETY UNSPEC 09/04/2011 KATE MARTELL MD 300.00 AN ANXIETY UNSPEC 09/04/2011 KATE MARTELL MD 300.00 AN ANXIETY UNSPEC 09/04/2011 KATE MARTELL MD 300.00 AN ANXIETY UNSPEC 09/04/2011 FABIAN DEGROOT M 300.00 AN ANXIETY UNSPEC 09/04/2011 FABIAN DEGROOT M 300.00 AN ANXIETY UNSPEC 09/04/2011 FABIAN DEGROOT M 300.00 AN ANXIETY UNSPEC 09/04/2011 KATE MARTELL MD 300.00 AN ANXIETY UNSPEC 05/19/2012 EMILY DEWITT JEANNE CORTES 466.0 ACUTE BRONCHITIS 05/19/2012 EMILY DEWITT JEANNE CORTES 466.0 ACUTE BRONCHITIS 05/19/2012 466.0 ACUTE BRONCHITIS 05/19/2012 EMILY DEWITT JEANNE MCNAMARAH 466.0 ACUTE BRONCHITIS 05/19/2012 KATE MARTELL MD 466.0 ACUTE BRONCHITIS 05/19/2012 JAYSHREE MATHEWS, KATE 466.0 ACUTE BRONCHITIS 05/19/2012 JAYSHREE MATHEWS, KATE 466.0 ACUTE BRONCHITIS 05/19/2012 JAYSHREE MATHEWS, KATE 466.0 ACUTE BRONCHITIS 05/19/2012 JAYSHREE MATHEWS, KATE 466.0 ACUTE BRONCHITIS 05/19/2012 KATE MARTELL MD 466.0 ACUTE BRONCHITIS 05/19/2012 KATE MARTELL MD 466.0 ACUTE BRONCHITIS 05/19/2012 FABIAN DEGROOT M 466.0 ACUTE BRONCHITIS 05/19/2012 FABIAN DEGROOT M 466.0 ACUTE BRONCHITIS 05/19/2012 FABIAN DEGROOT M 466.0 ACUTE BRONCHITIS 05/19/2012 KATE MARTELL MD 466.0 ACUTE BRONCHITIS 03/23/2013 EMILY DEWITT JEANNE SOPHIA 719.47 PAIN IN JOINT INVOLVING ANKLE AND FOOT 03/23/2013 KATE MARTELL MD.47 PAIN IN JOINT INVOLVING ANKLE AND FOOT 03/23/2013 KATE MARTELL MD.47 PAIN IN JOINT INVOLVING ANKLE AND FOOT 03/23/2013 KATE MARTELL MD.47 PAIN IN JOINT INVOLVING ANKLE AND FOOT 03/23/2013 KATE MARTELL MD.47 PAIN IN JOINT INVOLVING ANKLE AND FOOT 03/23/2013 KATE MARTELL MD.47 PAIN IN JOINT INVOLVING ANKLE AND FOOT 03/23/2013 KATE MARTELL MD.47 PAIN IN JOINT INVOLVING ANKLE AND FOOT 03/23/2013 KATE MARTELL MD.47 PAIN IN JOINT INVOLVING ANKLE AND FOOT 03/23/2013 FABIAN DEGROOT 719.47 PAIN IN JOINT INVOLVING ANKLE AND FOOT 03/23/2013 FABIAN DEGROOT 719.47 PAIN IN JOINT INVOLVING ANKLE AND FOOT 03/23/2013 FABIAN DEGROOT 719.47 PAIN IN JOINT INVOLVING ANKLE AND FOOT 03/23/2013 KATE MARTELL MD 719.47 PAIN IN JOINT INVOLVING ANKLE AND FOOT 07/20/2013 KATE MARTELL MD 724.2 LUMBAGO 07/20/2013 JAYSHREE MATHEWS, KATE 724.2 LUMBAGO 07/20/2013 JAYSHREE MATHEWS, KATE 724.2 LUMBAGO 07/20/2013 JAYSHREE MATHEWS, KATE 724.2 LUMBAGO 07/20/2013 JAYSHREE MATHEWS, KATE 724.2 LUMBAGO 07/20/2013 JAYSHREE MATHEWS, KATE 724.2 LUMBAGO 07/20/2013 JAYSHREE MATHEWS, KATE 724.2 LUMBAGO 07/20/2013 FABIAN DEGROOT 724.2 LUMBAGO 07/20/2013 FABIAN DEGROOT 724.2 LUMBAGO 07/20/2013 FABIAN DEGROOT 724.2 LUMBAGO 07/20/2013 KATE MARTELL MD 724.2 LUMBAGO 11/07/2013 KATE MARTELL MD 401.1 BENIGN ESSENTIAL HYPERTENSION 11/07/2013 KATE MARTELL MD 496 CHRONIC AIRWAY OBSTRUCTION NOT ELSEWHERE CLASSIFIED 11/07/2013 KATE MARTELL MD 401.1 BENIGN ESSENTIAL HYPERTENSION 11/07/2013 KATE MARTELL MD CHRONIC AIRWAY OBSTRUCTION NOT ELSEWHERE CLASSIFIED 11/07/2013 KATE MARTELL MD 401.1 BENIGN ESSENTIAL HYPERTENSION 11/07/2013 KATE MARTELL MD 496 CHRONIC AIRWAY OBSTRUCTION NOT ELSEWHERE CLASSIFIED 11/07/2013 KATE MARTELL MD 401.1 BENIGN ESSENTIAL HYPERTENSION 11/07/2013 KATE MARTELL MD CHRONIC AIRWAY OBSTRUCTION NOT ELSEWHERE CLASSIFIED 11/07/2013 KATE MARTELL MD 401.1 BENIGN ESSENTIAL HYPERTENSION 11/07/2013 KATE MARTELL MD6 CHRONIC AIRWAY OBSTRUCTION NOT ELSEWHERE CLASSIFIED 11/07/2013 FABIAN DEGROOT 401.1 BENIGN ESSENTIAL HYPERTENSION 11/07/2013 FABIAN DEGROOT 496 CHRONIC AIRWAY OBSTRUCTION NOT ELSEWHERE CLASSIFIED 11/07/2013 FABIAN DEGROOT 401.1 BENIGN ESSENTIAL HYPERTENSION 11/07/2013 FABIAN DEGROOT 496 CHRONIC AIRWAY OBSTRUCTION NOT ELSEWHERE CLASSIFIED 11/07/2013 FABIAN DEGROOT 401.1 BENIGN ESSENTIAL HYPERTENSION 11/07/2013 FABIAN DEGROOT 496 CHRONIC AIRWAY OBSTRUCTION NOT ELSEWHERE CLASSIFIED 11/07/2013 KATE MARTELL MD 401.1 BENIGN ESSENTIAL HYPERTENSION 11/07/2013 KATE MARTELL MD 496 CHRONIC AIRWAY OBSTRUCTION NOT ELSEWHERE CLASSIFIED 01/22/2014 KATE MARTELL MD 530.11 REFLUX ESOPHAGITIS 01/22/2014 KATE MARTELL MD 530.11 REFLUX ESOPHAGITIS 01/22/2014 KATE MARTELL MD 530.11 REFLUX ESOPHAGITIS 01/22/2014 FABIAN DEGROOT 530.11 REFLUX ESOPHAGITIS 01/22/2014 FABIAN DEGROOT 530.11 REFLUX ESOPHAGITIS 01/22/2014 FABIAN DEGROOT 530.11 REFLUX ESOPHAGITIS 01/22/2014 KATE MARTELL MD 530.11 REFLUX ESOPHAGITIS 07/30/2014 FABIAN DEGROOT 272.4 OTHER AND UNSPECIFIED HYPERLIPIDEMIA 07/30/2014 FABIAN DEGROOT M 466.0 ACUTE BRONCHITIS 07/30/2014 FABIAN DEGROOT 272.4 OTHER AND UNSPECIFIED HYPERLIPIDEMIA 07/30/2014 FABIAN DEGROOT M 466.0 ACUTE BRONCHITIS 07/30/2014 KATE MARTELL MD 272.4 OTHER AND UNSPECIFIED HYPERLIPIDEMIA 07/30/2014 KATE MARTELL MD 466.0 ACUTE BRONCHITIS 10/29/2014 KATE MARTELL MD V03.82 PCV-13 (PREVNAR) DX Procedures Code [place] [address] ROUTINE VENIPUNCTURE 06/15/2012 04107 CMP 06/15/201263440 LIPID PANEL 06/154950 GFR CALC (RESULT ONLY) 06/15/2012 05481 PSYCH IND W/MED CK 20 07/13/2012 15935 ROUTINE VENIPUNCTURE 07/20/2013 G0008 FLU ADMINISTRATION (MEDICARE ONLY) 07/20/20136090541 GFR CALC (RESULT ONLY) 07/20/201315067 CMP 07/20/201369880 LIPID PANEL 07/20 33096 URINE DRUG SCREEN (IN-HOUSE) 11/07/2013 13443 URINE DRUG SCREEN (IN-HOUSE) 01/22/2014 69504 ROUTINE VENIPUNCTURE 07/30/2014 58408 CMP 07/30/2014 33231 LIPID PANEL 07/30 4294340 GFR CALC (RESULT ONLY) 07/30/2014 Results Encounters ACCT No. Visit Date/Time Discharge Status Pt. Type Provider Facility Loc./Unit Complaint [id number] 10/29/2014 14:32:00 10/29/2014 23: 59:59 CLS Outpatient KATE MARTELL MD [id number] 09/26/2014 08:40:00 09/26/2014 23: 59:59 CLS Outpatient FABIAN DEGROOT [id number] 06/27/2014 08:18:00 06/27/2014 23: 59:59 CLS Outpatient FABIAN DEGROOT [id number] 06/27/2014 08:18:00 06/27/2014 23: 59:59 CLS Outpatient FABIAN DEGROOT [id number] 04/26/2014 09:44:00 04/26/2014 23: 59:59 CLS Outpatient KATE MARTELL MD [id number] 01/22/2014 08:53:00 01/22/2014 23: 59:59 JOSELYN Outpatient KATE MARTELL MD [id number] 01/22/2014 08:53:00 01/22/2014 23: 59:59 CLS Outpatient KATE MARTELL MD [id number] 11/07/2013 15:42:00 11/07/2013 23: 59:59 JOSELYN Outpatient KATE MARTELL MD [id number] 11/07/2013 15:42:00 11/07/2013 23: 59:59 CLS Outpatient KATE MARTELL MD [id number] 07/20/2013 09:53:00 07/20/2013 23: 59:59 JOSELYN Outpatient KATE MARTELL MD [id number] 07/20/2013 09:53:00 07/20/2013 23: 59:59 JOSELYN Outpatient KATE MARTELL MD [id number] 03/23/2013 09:46:00 03/23/2013 23: 59:59 CLS Outpatient JEANNE DIAZ APRN [id number] 07/05/2012 09:12:00 07/05/2012 23: 59:59 CLS Outpatient JEANNE DIAZ APRN [id number] 06/15/2012 09:13:00 06/15/2012 23: 59:59 [facility] Outpatient JEANNE DIAZ APRN [id number] 12/21/2012 09:28:00 Document Registration
--- NOTE | 2017-07-23 10:37 | ED GI ---
General Stated Complaint: SKIN ORANGE Source of Information: Patient, Other (friend of the family) Exam Limitations: Physical Impairments History of Present Illness Time Seen By Provider: 10:32 Initial Comments Patient is brought to the ER by private conveyance by the family with a chief complaint that he is yellow skin color and confused. Significant weight he was seen by his primary care physician back in April, 3 months ago for the same problem was worked up for hepatitis and told he had an impacted gallbladder needs to come out and set up with a surgeon. He refused to the surgery and subsequently got better spontaneously in a few weeks. Today his yellow skin and confusion began to reappear Wednesday, 6 days ago and is progressively gotten worse and now the friend of the family has brought him to the ER because the patient cannot walk on his own power. Patient states he has mild shortness of breath due to his COPD but no cough. No fevers or chills. He feels weak and tired. No abdominal pain or nausea and vomiting or diarrhea. Not sure when his last bowel movement was. He says he is 5 foot 9 inches and 270 pounds. He denies oxygen dependency or CPAP. He states he smokes as many cigarettes as he can get in and a day. Allergies and Home Medications Allergies Coded Allergies: No Known Drug Allergies (Verified , 03/23/08) Home Medications Atenolol 50 Mg Tablet, (Reported) Duloxetine Hcl 30 Mg Capsule., (Reported) Hydrocodone Bit/Acetaminophen 1 Ea Tab, (Reported) Paroxetine Hcl 20 Mg Tablet, (Reported) Paroxetine Hcl 10 Mg Tablet, (Reported) Review of Systems Constitutional: see HPI, No chills, No diaphoresis EENTM: No Blurred Vision, No Double Vision Respiratory: Denies Cough, Shortness of Air Cardiovascular: Denies Chest Pain, Denies Lightheadedness Gastrointestinal: Abdomen Distended, Denies Abdominal Pain, Denies Constipated , Denies Diarrhea, Denies Nausea, Poor Appetite Genitourinary: Denies Burning, Denies Discharge Musculoskeletal: No back pain, No joint pain Skin: change in color, No lesions, No pruritus, No rash Psychiatric/Neurological: Denies Headache, Denies Paresthesia, Denies Seizure, Weakness, Other (depressed affect GCS 15, oriented to person and place but not time or situation.) Past Mwbppls-Rhugpw-Ikvhly Hx Patient Social History Alcohol Use: Past History (30 years ago) Recreational Drug Use: No Smoking Status: Current Everyday Smoker Type Used: Cigarettes (multiple pack per day) Reproductive System Hx Reproductive Disorders: No Physical Exam Vital Signs VS - Last 72 Hours, by Label 07/23/17 10:19 Temp 99.9 Pulse 103 Resp 18 B/P (MAP) 120/64 (82) Pulse Ox 94 Capillary Refill : General Appearance: moderate distress, obese HEENT: PERRL/EOMI, pharynx normal (icteric), scleral icterus (R), scleral icterus (L) Neck: non-tender, normal inspection Respiratory: chest non-tender, no respiratory distress, no accessory muscle use , crackles, No wheezing Cardiovascular: normal peripheral pulses, regular rate, rhythm, no JVD, no murmur Peripheral Pulses: 2+ Radial Pulses (R), 2+ Radial Pulses (L) Gastrointestinal: normal bowel sounds, non tender (negative for Rodgers sign), soft Extremities: non-tender, normal capillary refill Neurologic/Psychiatric: alert, depressed affect, other (oriented to person and place but not time or situation; negative for asterixis) Skin: warm/dry, jaundice Focused Exam Evaluation Lactate Level Laboratory Tests 07/23/17 10:55: Lactic Acid Level 2.54*H Lactic Acid Level Laboratory Tests Test 07/23/17 10:55 Lactic Acid Level 2.54 MMOL/L (0.50-2.00) *H Progress/Results/Core Measures Results/Orders Lab Results Laboratory Tests Test 07/23/17 10:55 07/23/17 12:33 Range/Units White Blood Count 30.1 *H 4.3-11.0 10^3/uL Red Blood Count 4.67 4.35-5.85 10^6/uL Hemoglobin 13.4 13.3-17.7 G/DL Hematocrit 35 L 40-54 % Mean Corpuscular Volume 75 L 80-99 FL Mean Corpuscular Hemoglobin 29 25-34 PG Mean Corpuscular Hemoglobin Concent 38 H 32-36 G/DL Red Cell Distribution Width 16.9 H 10.0-14.5 % Platelet Count 35 *L 130-400 10^3/uL Mean Platelet Volume 7.4-10.4 FL Neutrophils (%) (Auto) 88 H 42-75 % Lymphocytes (%) (Auto) 3 L 12-44 % Monocytes (%) (Auto) 8 0-12 % Eosinophils (%) (Auto) 1 0-10 % Basophils (%) (Auto) 0 0-10 % Neutrophils # (Auto) 26.3 H 1.8-7.8 X 10^3 Lymphocytes # (Auto) 1.0 1.0-4.0 X 10^3 Monocytes # (Auto) 2.5 H 0.0-1.0 X 10^3 Eosinophils # (Auto) 0.2 0.0-0.3 10^3/uL Basophils # (Auto) 0.1 0.0-0.1 10^3/uL Neutrophils % (Manual) 88 % Lymphocytes % (Manual) 2 % Monocytes % (Manual) 6 % Eosinophils % (Manual) 0 % Basophils % (Manual) 0 % Band Neutrophils 4 % Hypersegmented Neutrophils MODERATE Anisocytosis MODERATE Spherocytes SLIGHT Prothrombin Time 20.5 H 12.2-14.7 SEC INR Comment 1.8 H 0.8-1.4 Activated Partial Thromboplast Time 84 H 24-35 SEC Sodium Level 130 L 135-145 MMOL/L Potassium Level 2.8 L 3.6-5.0 MMOL/L Chloride Level 97 L 98-107 MMOL/L Carbon Dioxide Level 15 L 21-32 MMOL/L Anion Gap 18 H 5-14 MMOL/L Blood Urea Nitrogen 47 H 7-18 MG/DL Creatinine 1.44 H 0.60-1.30 MG/DL Estimat Glomerular Filtration Rate 50 BUN/Creatinine Ratio 33 Glucose Level 115 H 70-105 MG/DL Lactic Acid Level 2.54 *H 0.50-2.00 MMOL/L Calcium Level 8.8 8.5-10.1 MG/DL Phosphorus Level 1.6 L 2.3-4.7 MG/DL Magnesium Level 1.1 L 1.8-2.4 MG/DL Total Bilirubin 64.1 H 0.1-1.0 MG/DL Aspartate Amino Transf (AST/SGOT) 56 H 5-34 U/L Alanine Aminotransferase (ALT/SGPT) 64 H 0-55 U/L Alkaline Phosphatase 623 H 40-136 U/L Ammonia 11-32 UMOL/L B-Type Natriuretic Peptide 119.7 H <100.0 PG/ML Total Protein 5.6 L 6.4-8.2 GM/DL Albumin 3.0 L 3.2-4.5 GM/DL Lipase < 4 L 8-78 U/L Acetaminophen Level < 10 L 10-30 UG/ML Serum Alcohol < 10 <10 MG/DL Blood Gas Puncture Site RIGHT RADIAL Blood Gas Patient Temperature 100 Arterial Blood pH 7.45 H 7.37-7.43 Arterial Blood Partial Pressure CO2 27 L 35-45 MMHG Arterial Blood Partial Pressure O2 64 L 79-93 MMHG Arterial Blood HCO3 18 L 23-27 MMOL/L Arterial Blood Total CO2 18.7 L 21.0-31.0 MMOL/L Arterial Blood Oxygen Saturation 93 L 94-100 % Arterial Blood Base Excess -5.2 L -2.5-2.5 MMOL/L Ector Test POSITIVE Blood Gas Ventilator Setting NO Blood Gas Inspired Oxygen N/A My Orders Orders - SATURNINO COLEMAN Iv 1000 Ml (Sodium Chloride 0.9%) (07/23/17 10:27) Ct Abdomen/Pelvis W (07/23/17 10:27) Acetaminophen (07/23/17 10:27) Alcohol (07/23/17 10:27) Ammonia (07/23/17 10:27) BNP (07/23/17 10:27) Cbc With Automated Diff (07/23/17 10:) Comprehensive Metabolic Panel (07/23/17 10:27) Lipase (07/23/17 10:27) Magnesium (07/23/17 10:27) Phosphorus (07/23/17 10:27) Lactated Ringers (Lr 1000 Ml Iv Solution (07/23/17 10:30) Lactic Acid Analyzer (07/23/17 10:27) Blood Culture (07/23/17 10:27) Protime With Inr (07/23/17 10:27) Partial Thromboplastin Time (07/23/17 10:27) Chest 1 View, Ap/Pa Only (07/23/17 10:27) O2 (07/23/17 10:27) Saline Lock/Iv-Start (07/23/17 10:27) Saline Lock/Iv-Start (07/23/17 10:27) Piperacillin Sodium/Tazobactam (Zosyn Vi (07/23/17 10:30) Vital Signs Adult Sepsis Patie Q1H (07/23/17 10:27) Remove Rings In Anticipation O (07/23/17 10:27) Manual Differential (07/23/17 10:55) Iohexol Injection (Omnipaque 350 Mg/Ml 1 (07/23/17 11:45) Ns (Ivpb) (Sodium Chloride 0.9% Ivpb Bag (07/23/17 11:45) Ns Iv 1000 Ml (Sodium Chloride 0.9%) (07/23/17 11:47) Rifaximin (Non-Formulary) (Xifaxan (Non- (07/23/17 12:02) Potassium Cl 10meq/50ml Ivpb (Kcl 10 Meq (07/23/17 12:30) Magnesium 1 Gm/100 Ml Ivpb (Magnesium Welsh (07/23/17 12:30) Potassium Phosphate Inj (Potassium Phosp (07/23/17 12:30) Ns Iv 1000 Ml (Sodium Chloride 0.9%) (07/23/17 12:30) Arterial Blood Gas (07/23/17 12:33) Medications Given in ED Current Medications Medications Dose Ordered Sig/Ad Route Start Time Stop Time Status Last Admin Dose Admin Iohexol 100 ml ONCE ONCE IV 07/23/17 11:45 07/23/17 11:46 DC 07/23/17 11:49 100 ML Piperacillin Sod/ Tazobactam Sod 4.5 gm/Sodium Chloride 100 ml @ 200 mls/hr ONCE ONCE IV 07/23/17 10:30 07/23/17 10:59 DC 07/23/17 12:20 200 MLS/HR Sodium Chloride 100 ml ONCE ONCE IV 07/23/17 11:45 07/23/17 11:46 DC 07/23/17 11:49 80 ML Sodium Chloride 1,000 ml @ STK-MED ONCE .ROUTE 07/23/17 11:47 07/23/17 11:49 DC 07/23/17 12:31 250 MLS/HR Sodium Chloride 2,000 ml @ ud STK-MED ONCE .ROUTE 07/23/17 10:27 07/23/17 10:30 DC 07/23/17 10:30 1,000 MLS/HR Vital Signs/I&O Vital Sign - Last 12Hours 07/23/17 10:19 Temp 99.9 Pulse 103 Resp 18 B/P (MAP) 120/64 (82) Pulse Ox 94 Progress Note #1: Time: 10:37 Progress Note Patient is jaundiced and mildly confused and per history of this is likely due to an obstructive hepatitis. He says he's had blood work done by Dr. Martell demonstrating he does not have a viral hepatitis. We'll get CT of his abdomen pelvis blood include ammonia, acetaminophen, alcohol and a lipase. His abdomen is nontender but he may also be narcotized by ammonia. He will likely need surgery consult. Progress Note #2: Time: 11:08 Progress Note Patient appears to be mostly neurologically intact however he presented with a good blood pressure and as you're getting blood and IV started his blood pressure consistently went down to the upper 80s systolic. We put him in Trendelenburg and have 2 L flowing in through 2 IVs in his upper extremities and his blood pressure is now 110 systolic. We'll allow him to go on the CT. If his blood pressure does not improve we'll place a central line. Progress Note #3: Time: 11:59 Progress Note Lab is still diluting him trying to get an ammonia level. Were trying to find we have rifaximin to give him. Reviewed his ultrasound from 6 months ago showing lots of stones in the gallbladder. At that time he is not obstructed or having any ductal dilatation or cholecystitis. Progress Note #4: Time: 12:55 Progress Note ABG shows respiratory alkalosis with some metabolic compensation. Likely this is due to his liver failure. Does not represent a COPD exacerbation however. Diagnostic Imaging Diagonstic Imaging: CT Plain Films/CT/US/NM/MRI: abdomen, pelvis (with contrast) Comments VIA [facility], [facility]. [place], [place] NAME: KEMI ESTRADA V [facility] REC#: [id number] PT STATUS: REG ER : 1955 PHYSICIAN: SATURNINO COLEMAN MD ADMIT DATE: 07/23/17/ER Draft Date of Exam:07/23/17 CT ABDOMEN/PELVIS W PROCEDURE: CT abdomen and pelvis with contrast. TECHNIQUE: Multiple contiguous axial images were obtained through the abdomen and pelvis after administration of intravenous contrast. INDICATION: Patient unable to get out of bed this morning. History of liver failure with jaundice. FINDINGS: The lung bases are clear. There is hepatomegaly with diffuse fatty change of the liver. There are no focal liver lesions. The gallbladder is not distended. Bile ducts appear normal. The pancreas is atrophic. There is mild splenomegaly. The adrenal glands are normal. The kidneys appear normal. There is normal enhancement of the abdominal organs and vessels following IV contrast. The aorta is atherosclerotic without evidence of aneurysm. Abdominal vessels enhance in normal fashion. The stomach is not distended. Small bowel appears normal. There is long segment of spasm of the colon from the hepatic flexure to the rectum.. No significant mesenteric edema is seen. There is no free air or free fluid. The appendix is visualized and does show a small appendicolith without evidence of edema. No intra-abdominal adenopathy of pathologic size. Bone windows show no blastic or lytic lesions. IMPRESSION: 1. Long segment spasm noted of the colon from the hepatic flexure of the rectum raising question of colitis. There is no evidence of mesenteric edema, free air or free fluid. 2. Hepatosplenomegaly with hepatic steatosis. Dictated on workstation # [id number] Dict: 07/23/17 1208 Trans: 07/23/17 1219 [facility] [id number] Interpreted by: CRESCENCIO MARROQUIN MD Electronically signed by: Reviewed: Reviewed by Al Diagonstic Imaging: Ultrasound Plain Films/CT/US/NM/MRI: abdomen (RUQ) Comments Old US Study: NAME: KEMI ESTRADA V [employer] REC#: [id number] PHYSICIAN: KATE MARTELL MD CC: KATE MARTELL MD; MARCUS LEMONS MD Page 2 of 2 RADIOLOGY REPORT VIA [place], [place] CC: KATE MARTELL MD; MARCUS LEMONS MD Page 1 of 2 RADIOLOGY REPORT NAME: KEMI ESTRADA V [employer] REC#: [id number] PT STATUS: REG CLI : 1955 PHYSICIAN: KATE MARTELL MD ADMIT DATE: 02/09/17/RAD Signed Date of Exam: 02/09/17 US ABDOMEN COMPLETE [id number] PROCEDURE: US abdomen complete. TECHNIQUE: Multiple real-time grayscale images were obtained over the abdomen in various projections. INDICATION: Abdominal pain. FINDINGS: The liver is a borderline enlarged measuring 19 cm in craniocaudal diagonal measurement. It is echogenic, suggestive of fatty infiltration. No focal mass is seen. There is hepatopetal flow in the portal vein. The pancreas is partially obscured by bowel gas. The gallbladder is the packed with stones. There is no progressive fluid or wall thickening, however, seen. Sonographic Rodgers's sign is reportedly negative. The CBD is partially obscured by bowel gas. The spleen is 12.5 x 5.4 x 5.7 cm in size, at the upper limits of normal. The right kidney is 11.9 and the left kidney is 12.8 cm in length. No hydronephrosis or focal lesion seen. Sonographic Rodgers sign is reportedly negative. There is no fluid collection or free fluid seen in the abdomen. IMPRESSION: 1. Cholelithiasis. 2. Mildly enlarged fatty liver. Dictated by: Dictated on workstation # [id number] Dict: 02/09/17 1000 Trans: 02/09/17 1149 Interpreted by: MARCUS LEMONS MD Electronically signed by: MARCUS LEMONS MD 02/09/17 1149 Reviewed: Reviewed/Discussed Diagonstic Imaging: Xray Plain Films/CT/US/NM/MRI: chest (1v) Comments NAME: KEMI ESTRADA V [facility] REC#: [id number] PHYSICIAN: SATURNINO COLEMAN MD CC: MARCUS LEMONS MD; SATURNINO COLEMAN Page 1 of 1 RADIOLOGY REPORT VIA [place], [place] CC: MARCUS LEMONS MD; SATURNINO COLEMAN Page 1 of 1 RADIOLOGY REPORT NAME: KEMI ESTRADA V [facility] REC#: [id number] PT STATUS: REG ER : 1955 PHYSICIAN: SATURNINO COLEMAN MD ADMIT DATE: 07/23/17/ER Signed Date of Exam: 07/23/17 CHEST 1 VIEW, AP/PA ONLY EXAM: Postoperative radiograph of the chest. INDICATION: Weakness. Liver failure. FINDINGS: The lungs are clear. The heart size is at the upper limits of normal. No effusion or pneumothorax The mediastinum and elfego appear unremarkable. IMPRESSION: No acute process. Dictated by: Dictated on workstation # [id number] Dict: 07/23/17 1212 Trans: 07/23/17 1215 Interpreted by: MARCUS LEMONS MD Electronically signed by: MARCUS LEMONS MD 07/23/17 1215 Reviewed: Reviewed by Me Departure Impression Impression: Primary Impression: Jaundice Additional Impressions: Hypotension Qualified Codes: I95.9 - Hypotension, unspecified Thrombocytopenia Acute liver failure without hepatic coma Acute respiratory alkalosis Hyponatremia Hypokalemia Hypomagnesemia Hypophosphatemia Hyperbilirubinemia Disposition: XFER SHT-TRM HOSP ([facility]) Condition: Critical Transfer Time Spoke to Accepting Phy: 13:33 Transfer Progress Notes 1230: Tommy, Triage coordinator: 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 1235: Kimberley; gave patient report and she will speak with Dr. Armin Willard, tire tester. Dr Armin Willard 1333: Kimberley: Dr Willard accepting; bed [id number] Transfer Time: 14:19 Transfer Facility: [facility] Method of Transfer: Air ([facility]) Departure-Patient Inst. Referrals: KATE MARTELL MD (PCP/Family) Primary Care Physician SATURNINO COLEMAN Jul 23, 2017 10:37
[2017-07-23 11:10] LABS: BASOPHILS # (AUTO) 0.1 10^3/uL (0.0-0.1); BASOPHILS % (AUTO) 0 % (0-10); EOSINOPHILS # (AUTO) 0.2 10^3/uL (0.0-0.3); EOSINOPHILS % (AUTO) 1 % (0-10); LYMPHOCYTES % (AUTO) 3 % (12-44); MEAN CORPUSCULAR HEMOGLOBIN 29 PG (25-34); MEAN CORPUSCULAR HGB CONC 38 G/DL (32-36); MEAN CORPUSCULAR VOLUME 75 FL (80-99); MONOCYTES # (AUTO) 2.5 X 10^3 (0.0-1.0); MONOCYTES % (AUTO) 8 % (0-12); NEUTROPHILS # (AUTO) 26.3 X 10^3 (1.8-7.8); NEUTROPHILS % (AUTO) 88 % (42-75); RED BLOOD COUNT 4.67 10^6/uL (4.35-5.85); RED CELL DISTRIBUTION WIDTH 16.9 % (10.0-14.5)
[2017-07-23 11:19] LABS: WHITE BLOOD COUNT 30.1 10^3/uL (4.3-11.0)
[2017-07-23 11:20] LABS: INR 1.8 (0.8-1.4); PLATELET COUNT 35 10^3/uL (130-400); PROTHROMBIN TIME PATIENT 20.5 SEC (12.2-14.7)
[2017-07-23 11:30] LABS: ACETAMINOPHEN < 10 UG/ML (10-30); ALANINE AMINOTRANSFERASE 64 U/L (0-55); ANION GAP 18 MMOL/L (5-14); ASPARTATE AMINO TRANSFERASE 56 U/L (5-34); BLOOD UREA NITROGEN 47 MG/DL (7-18); BUN/CREATININE RATIO 33; CALCIUM 8.8 MG/DL (8.5-10.1); CARBON DIOXIDE 15 MMOL/L (21-32); CHLORIDE 97 MMOL/L (98-107); CREATININE SERUM 1.44 MG/DL (0.60-1.30); GFR ESTIMATED 50; GLUCOSE 115 MG/DL (70-105); LIPASE < 4 U/L (8-78); MAGNESIUM 1.1 MG/DL (1.8-2.4); PHOSPHORUS 1.6 MG/DL (2.3-4.7); POTASSIUM 2.8 MMOL/L (3.6-5.0); SODIUM 130 MMOL/L (135-145); TOTAL PROTEIN 5.6 GM/DL (6.4-8.2)
[2017-07-23 11:40] LABS: ALCOHOL < 10 MG/DL (<10)
[2017-07-23 11:43] LABS: BILIRUBIN,TOTAL 64.1 MG/DL (0.1-1.0)
[2017-07-23] MEDS ORDERED: IOHEXOL 350 MG/ML 100 ML (OMNIPAQUE 350) VIAL IV ONE (11:45)
[2017-07-23] MEDS ORDERED: NS 100 ML (IVPB) BAG IV ONE (11:45)
[2017-07-23] MEDS ORDERED: NS IV 1000 ML 1,000 ML ONE (11:47)
[2017-07-23 11:50] LABS: BAND NEUTROPHILS 4 %; BASOPHILS % (MANUAL) 0 %; EOSINOPHILS % (MANUAL) 0 %; LYMPHOCYTES % (MANUAL) 2 %; NEUTROPHILS % (MANUAL) 88 %
[2017-07-23 11:51] LABS: ANISOCYTOSIS MODERATE; SPHEROCYTES SLIGHT
[2017-07-23] MEDS ORDERED: RIFAXIMIN 550 MG TABLET (XIFAXAN) PO STA (12:02)
--- NOTE | 2017-07-23 12:17 | Diagnostic Imaging Report ---
EXAM: Postoperative radiograph of the chest. INDICATION: Weakness. Liver failure. FINDINGS: The lungs are clear. The heart size is at the upper limits of normal. No effusion or pneumothorax The mediastinum and elfego appear unremarkable. IMPRESSION: No acute process. Dictated by: Dictated on workstation # [id number]
--- NOTE | 2017-07-23 12:20 | Diagnostic Imaging Report ---
PROCEDURE: CT abdomen and pelvis with contrast. TECHNIQUE: Multiple contiguous axial images were obtained through the abdomen and pelvis after administration of intravenous contrast. INDICATION: Patient unable to get out of bed this morning. History of liver failure with jaundice. FINDINGS: The lung bases are clear. There is hepatomegaly with diffuse fatty change of the liver. There are no focal liver lesions. The gallbladder is not distended. Bile ducts appear normal. The pancreas is atrophic. There is mild splenomegaly. The adrenal glands are normal. The kidneys appear normal. There is normal enhancement of the abdominal organs and vessels following IV contrast. The aorta is atherosclerotic without evidence of aneurysm. Abdominal vessels enhance in normal fashion. The stomach is not distended. Small bowel appears normal. There is long segment of spasm of the colon from the hepatic flexure to the rectum.. No significant mesenteric edema is seen. There is no free air or free fluid. The appendix is visualized and does show a small appendicolith without evidence of edema. No intra-abdominal adenopathy of pathologic size. Bone windows show no blastic or lytic lesions. IMPRESSION: 1. Long segment spasm noted of the colon from the hepatic flexure of the rectum raising question of colitis. There is no evidence of mesenteric edema, free air or free fluid. 2. Hepatosplenomegaly with hepatic steatosis. Dictated by: Dictated on workstation # [id number]
[2017-07-23] MEDS ORDERED: POTASSIUM PHOSPHATE INJ 15 MM in NS (IVPB) 250 ML IV ONE (12:30)
[2017-07-23] MEDS ORDERED: POTASSIUM CL 10MEQ/50ML IVPB 50 ML IV SCH (12:30)
[2017-07-23] MEDS ORDERED: NS IV 1000 ML 1,000 ML IV SCH (12:30)
[2017-07-23] MEDS ORDERED: MAGNESIUM 1 GM/100 ML IVPB 100 ML IV SCH (12:30)
[2017-07-23 12:40] LABS: ABG BASE EXCESS -5.2 MMOL/L (-2.5-2.5); ABG HCO3 18 MMOL/L (23-27); ABG OXYGEN SATURATION 93 % (94-100); ABG PCO2 27 MMHG (35-45); ABG PH 7.45 (7.37-7.43); ABG PO2 64 MMHG (79-93); ABG TCO2 18.7 MMOL/L (21.0-31.0)
[2017-07-23 12:41] LABS: ALLENS TEST POSITIVE; PATIENT TEMP 100
[2017-07-23 14:15] VITALS: BP 122/76
== END 2017-07-23 14:19 | disposition short-term general hospital (02) ==
LOC: EDUNIT# 10:19 → ER 10:21
DX: R17 Unspecified jaundice (principal); I95.9 Hypotension, unspecified; D69.6 Thrombocytopenia, unspecified; K72.00 Acute and subacute hepatic failure without coma; E87.3 Alkalosis; E87.1 Hypo-osmolality and hyponatremia; E87.6 Hypokalemia; E83.42 Hypomagnesemia; E83.31 Familial hypophosphatemia; E80.6 Other disorders of bilirubin metabolism; J44.9 Chronic obstructive pulmonary disease, unspecified; F17.210 Nicotine dependence, cigarettes, uncomplicated
CPT/HCPCS: 36415; 71010; 74177; 80053; 80320; 80329; 82805; 83605; 83690; 83735; 83880; 84100; 85007; 85027; 85610; 85730; 87040; 87077; 87186

== ENCOUNTER → 2017-09-13 | Outpatient (CLI) | payer MEDICARE, MEDICAID ==
[~2017-09-13] MED LIST changes: +RT-ALBUTEROL SULF 2.5 MG/3 ML PRE-MIX VIAL INH ONE
== END ==
LOC: RT 09:33
PROVIDERS: ATTEND Transplant Surgery
DX: Z01.818 Encounter for other preprocedural examination (principal)
CPT/HCPCS: 94060; 94726; 94729

== ENCOUNTER → 2018-05-12 | Outpatient (CLI) | payer MEDICARE, MEDICAID ==
[~2018-05-12] MED LIST changes: -RT-ALBUTEROL SULF 2.5 MG/3 ML PRE-MIX VIAL INH ONE
--- NOTE | 2018-05-12 11:01 | Diagnostic Imaging Report ---
Low-dose lung cancer screening. Indication: Screening for lung cancer. Routine images of the thorax were obtained using the low-dose lung cancer screening protocol. There are no prior CT chest examinations available for comparison. The plain film examination of the chest performed 07/23/2017 failed to show any sign acute cardiopulmonary abnormality. On this exam however there is atelectasis/infiltrate and a small amount fluid in the left lung base. The fluid measures approximately 1-2 cm maximum depth. There also appears to be some fluid in the minor fissure on the left. There is also some increased density in the left infrahilar region. There is no clear evidence for a mass in this area. However there is a 1.3 x 1.3 cm nodular density in the left infrahilar region. This density was not clearly evident on the prior CT abdomen/pelvis exam of 07/23/2017 and I am concerned that this could represent a neoplastic mass. This could also be secondary to volume averaging with the pulmonary vessels. I would recommend that CT of the chest be performed for further evaluation. There is no other parenchymal lung nodule identified. The heart size is within normal limits. There are coronary artery calcifications evident. The aorta is not abnormally dilated. There are few small nonspecific nodes in the precarinal region and aorticopulmonary window. The pretracheal node measures 1.1 x 1.6 cm while the node in the aorticopulmonary window is estimated to be 0.7 x 1.9 cm These nodes are nonspecific in appearance. The thyroid gland was not well visualized. The sections through the upper abdomen fail to show any sign of an acute abnormality. The upper abdomen evaluation however is limited due to considerable artifact. The bone windows show no evidence for fracture or for destructive lesion. There is degenerative disc and bony disease throughout the thoracic spine. Impression: 1. There is left lower lobe pneumonia/atelectasis and small left pleural effusion. There is also question of a parenchymal mass in the left infrahilar region. CT of the chest with contrast would be recommended for further study. 2. There is no other parenchymal lung mass identified and there is no other sign of an acute cardiopulmonary abnormality. 3. There are nonspecific pretracheal and aorticopulmonary lymph nodes present. 4. The heart is not enlarged but there are coronary calcifications evident. 5. These results were discussed with Dr. Gomez. Dictated by: Dictated on workstation # [id number]
== END ==
LOC: RAD 08:54
PROVIDERS: ATTEND Internal Medicine
DX: Z12.2 Encounter for screening for malignant neoplasm of respiratory organs (principal); J90 Pleural effusion, not elsewhere classified; I25.10 Atherosclerotic heart disease of native coronary artery without angina pectoris; Z87.891 Personal history of nicotine dependence

== ENCOUNTER → 2018-05-23 | Outpatient (CLI) | payer MEDICARE, MEDICAID ==
[~2018-05-23] MED LIST changes: +IOHEXOL 350 MG/ML 100 ML (OMNIPAQUE 350) VIAL IV ONE; +NS 250 ML (IVPB) BAG IV ONE
[2018-05-23 09:17] LABS: ALANINE AMINOTRANSFERASE 18 U/L (0-55); ALBUMIN 3.9 GM/DL (3.2-4.5); ALKALINE PHOSPHATASE 112 U/L (40-136); BILIRUBIN,TOTAL 0.4 MG/DL (0.1-1.0); BUN/CREATININE RATIO 25; CARBON DIOXIDE 21 MMOL/L (21-32); CHLORIDE 106 MMOL/L (98-107); CREATININE SERUM 0.93 MG/DL (0.60-1.30); GFR ESTIMATED > 60; GLUCOSE 114 MG/DL (70-105); POTASSIUM 4.2 MMOL/L (3.6-5.0); SODIUM 137 MMOL/L (135-145)
--- NOTE | 2018-05-23 12:14 | Diagnostic Imaging Report ---
PROCEDURE: CT chest with contrast only. TECHNIQUE: Multiple contiguous axial images were obtained through the chest after administration of intravenous contrast. DATE: May 23, 2018. COMPARISON: Chest radiograph of July 23, 2017. CT chest for lung cancer screening of May 12, 2018. INDICATION: 62-year-old male, evaluation for previously questioned lung mass. FINDINGS: There is a small left pleural effusion. There is nonspecific airspace consolidation in the medial aspect of the left lower lobe. The degree of airspace consolidation in the left medial lung base appears mildly decreased since the comparison exam. The previously noted nodular opacity in the lingula on the prior axial image 152 is not currently present. This may have related to prior airspace consolidative process and/or atelectasis which has subsequently resolved. There are mild linear opacities in the right middle lobe, likely reflecting scarring and/or atelectasis, which are unchanged. There is no identified lung mass. There is no otherwise identified pulmonary nodule. There is no identified pulmonary embolus. The main pulmonary artery is normal in caliber. The heart is not enlarged. There is no pericardial effusion. There are coronary artery calcifications. There are additional areas of atherosclerotic disease. There is a low-attenuation right thyroid nodule on axial image 2 which measures 3.4 x 1.7 cm in size. A dedicated thyroid ultrasound is recommended for further assessment. There is an AP window lymph node on axial image 20 which measures 9 mm in short axis. There are subcentimeter short axis additional mediastinal lymph nodes. There is no identified mediastinal, hilar, or axillary lymph node which specifically meets CT size criteria for adenopathy. There is a lesion extending to the anterior skin surface at the level of the mid chest just to the left of midline on axial image 35 measuring 1.9 x 1.4 cm in size. This is nonspecific on imaging appearance. Recommend correlation with dermatologic exam. The patient is status post cholecystectomy. There is pneumobilia. Additional limited evaluation of the visualized portions of the upper abdomen is unremarkable. There is no identified acute bony abnormality. There are multilevel degenerative changes of the spine. IMPRESSION: 1. Small left pleural effusion with adjacent nonspecific airspace consolidation in the medial aspect of the left lower lobe. The overall extent of airspace consolidation has decreased since May 12, 2018. This is entirely nonspecific. 2. No identified lung mass or concerning pulmonary nodule. There is resolution of the prior nodular opacity on the prior exam which may have related to a previous airspace consolidative process and/or atelectasis. 3. Indeterminate thyroid nodule measuring up to 3.4 cm in size. A dedicated thyroid ultrasound is recommended for further assessment. 4. Additional incidental findings as described above. Dictated by: Dictated on workstation # [id number]
== END ==
LOC: RAD 08:41
PROVIDERS: ATTEND Internal Medicine
DX: J90 Pleural effusion, not elsewhere classified (principal); J18.1 Lobar pneumonia, unspecified organism; E04.1 Nontoxic single thyroid nodule; I70.90 Unspecified atherosclerosis; M17.9 Osteoarthritis of knee, unspecified; Z90.49 Acquired absence of other specified parts of digestive tract
CPT/HCPCS: 36415; 71260; 80053

== ENCOUNTER → 2018-06-09 | Outpatient (CLI) | payer MEDICARE, MEDICAID ==
[~2018-06-09] MED LIST changes: -IOHEXOL 350 MG/ML 100 ML (OMNIPAQUE 350) VIAL IV ONE; -NS 250 ML (IVPB) BAG IV ONE
--- NOTE | 2018-06-09 11:21 | Diagnostic Imaging Report ---
PROCEDURE: US Thyroid. TECHNIQUE: Multiple real-time grayscale images were obtained of the thyroid in various projections. INDICATION: Thyroid nodule noted on CT. Comparison is made with recent CT chest study from 05/23/2018. FINDINGS: The right lobe of the thyroid measures 4.8 x 3.2 x 2.7 cm and left lobe measures 4.5 x 1.9 x 1.5 cm. Right lobe of the thyroid does show a solid mass in lower pole correlating with the CT abnormality measuring 2.8 x 4.3 x 3.1 cm. There is also small nodule lower pole left lobe of the thyroid with some peripheral calcifications measuring 0.8 x 1.3 x 0.9 cm. No other masses are seen. IMPRESSION: Bilateral thyroid nodules. Dominant masses lower pole right lobe. Tissue sampling could be performed. Dictated by: Dictated on workstation # [id number]
== END ==
LOC: RAD 10:32
PROVIDERS: ATTEND Internal Medicine
DX: E04.2 Nontoxic multinodular goiter (principal)
CPT/HCPCS: 76536

== ENCOUNTER → 2020-06-27 | Outpatient (CLI) | payer MEDICARE, MEDICAID ==
--- NOTE | 2020-06-27 13:22 | Diagnostic Imaging Report ---
CT CHEST SCREENING WO TECHNIQUE: Low-dose unenhanced CT of the chest was performed according to the screening protocol. Coronal MIP and sagittal MPR reformats are created. Automatic exposure controls were utilized to keep dose as low as reasonably achievable. INDICATION: 26-gefq-frmi history of smoking. Current smoker. COMPARISON: CT chest of 05/23/2018. FINDINGS: Pulmonary findings: No endoluminal nodule within the trachea. No pulmonary mass or consolidation. Left lower lobe subpleural bandlike atelectasis. No pulmonary nodules have developed that would be suspicious for clinically active lung cancer. Extrapulmonary findings: Right thyroid nodule extending into the upper mediastinum is unchanged. No pleural effusion or axillary lymphadenopathy. No mediastinal, hilar or juxtaphrenic lymphadenopathy. Heart is normal in size without pericardial effusion. Stable coronary artery calcifications. No worrisome focal osseous lesions. IMPRESSION: 1. Screening exam is negative for features of clinically active lung cancer. 2. A small amount of postinfectious/postinflammatory atelectasis is present in the left lower lobe. Lung-RADS category: 1 - Negative Recommendations: Continued annual screening with low-dose CT in 12 months. Dictated by: Dictated on workstation # [id number]
== END ==
LOC: RAD 11:52
PROVIDERS: ATTEND Internal Medicine
DX: Z12.2 Encounter for screening for malignant neoplasm of respiratory organs (principal); J98.11 Atelectasis; F17.210 Nicotine dependence, cigarettes, uncomplicated

== ENCOUNTER → 2021-10-06 | Outpatient (CLI) | payer MEDICARE, MEDICAID ==
--- NOTE | 2021-10-06 11:47 | Diagnostic Imaging Report ---
PET/CT INDICATION: Lung nodule TECHNIQUE: PET/CT imaging was obtained from the base of the skull through the pelvis after the administration of 14.84 mCi of F-[address] imaging was utilized for localization and attenuation correction purposes. The low energy CT utilized for attenuation correction is not considered to be of high enough spatial resolution to allow in and of itself a separate anatomical analysis. Patient Height: 5' 10" Patient Weight: 293 Blood Glucose: 91 There are no prior PET/CT examinations available for comparison. The CT low-dose lung cancer screening exam of 06/27/2020 failed to show any sign of malignancy. It is my understanding that the patient had a recent CT chest exam elsewhere which indicated a 1.2 cm nodule in the right upper lobe. Neither that exam nor the report of that study is available at this time. On the CT images of this exam, there is a 1.4 cm nodular density in the right upper lobe. This area has a max SUV of only 1.0, consequently, it is unlikely that this is neoplastic in nature. However, as it has developed since the previous exam of 2019, I would recommend that a short-term (three-month) follow-up CT chest exam be obtained for further study. There is no other hypermetabolic activity to suggest the presence of malignancy. Physiologic activity is seen in the brain, the bowel, the kidneys and the bladder. The CT images failed to show any sign of an acute abnormality. However there is a soft tissue fullness extending along the inferior pole of the right lobe of the thyroid into the anterior mediastinum. 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 There is no hypermetabolic activity associated with this finding. If further imaging is desired, ultrasound would be recommended. IMPRESSION: 1. The small nodule in the right upper lobe is not hypermetabolic and unlikely to represent a malignant process. Recommendations as above. 2. There is no other hypermetabolic activity to suggest malignancy. 3. There is no acute abnormality noted. 4. 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 Additional considerations as above. 5. If the patient's previous exam is available, it would be helpful for comparison. These results were discussed with Dr. Adalid Gomez. Dictated by: Dictated on workstation # [id number]
== END ==
LOC: RAD 09:00
PROVIDERS: ATTEND Internal Medicine
DX: R91.1 Solitary pulmonary nodule (principal)
CPT/HCPCS: 78815; A9552

== ENCOUNTER 2023-07-19 10:25 | Inpatient (IN) | payer MEDICARE, MEDICAID ==
[~2023-07-19] VITALS: Ht 178 cm; Wt 126.8 kg
[2023-07-19 10:51] LABS: ABG BASE EXCESS -7.6 MMOL/L (-2.5-2.5); ABG OXYGEN SATURATION 76 % (94-100); ABG PCO2 46 MMHG (35-45); ABG PO2 49 MMHG (79-93); ABG TCO2 21.1 MMOL/L (21.0-31.0)
[2023-07-19 10:57] LABS: ABG PH 7.24 (7.37-7.43); VENTILATOR NO
--- NOTE | 2023-07-19 10:59 | ED General ---
General Chief Complaint: Respiratory Problems Stated Complaint: SOB Nursing Triage Note: PT TO RM 9 BY [facility] EMS WITH CC OF SOB FROM [facility], BREATHING TX GIVEN INSTALL TECHNICIAN, RT IN AT TRIAGE FOR ANA NOBLES DR IN RM. SOLUMEDROL IM AT THE CLINIC. Source of Information: Patient, EMS, Old Records Exam Limitations: No Limitations History of Present Illness Date Seen by Provider: Jul 19, 2023 Time Seen by Provider: 10:26 Initial Comments This 67-year-old gentleman presents to the emergency room via EMS from the [facility] clinic where he was found to be very short of breath and hypoxic. He has been ill for several days with cough, fever, shortness of breath, and diarrhea. Temperature was up to 102 F on Wednesday. Patient does not normally require supplemental oxygen but he had oxygen saturations of 82% on room air in the clinic with a heart rate of 109. Blood pressure was marginal at 100/70. A DuoNeb treatment was administered without significant improvement. EMS placed him on a nonrebreather which brought his oxygen saturations into the mid 90s. They also administered Solu-Medrol 125 mg IM. Patient denies any significant history of heart failure or pulmonary disease. COPD was noted in his PMH. Allergies and Home Medications Allergies Coded Allergies: No Known Drug Allergies (Verified , 03/23/08) Patient Home Medication List Home Medication List Reviewed: Yes Atenolol (Tenormin) 50 Mg Tablet, (Reported) Entered as Reported by: ELIANA VIDALES on 03/23/08 1424 Duloxetine Hcl (Cymbalta) 30 Mg Capsule., (Reported) Entered as Reported by: ELIANA VIDALES on 03/23/08 1426 Hydrocodone Bit/Acetaminophen (Rx-Vicodin 5 Mg/325MG Tab) 1 Ea Tab, (Reported) Entered as Reported by: ELIANA VIDALES on 03/23/08 1429 Paroxetine Hcl (Paxil 20 Mg) 20 Mg Tablet, (Reported) Entered as Reported by: ELIANA VIDALES on 03/23/08 1426 Paroxetine Hcl (Paxil 10 Mg) 10 Mg Tablet, (Reported) Entered as Reported by: ELIANA VIDALES on 03/23/08 142 Review of Systems Review of Systems Constitutional: see HPI EENTM: no symptoms reported Respiratory: see HPI Cardiovascular: no symptoms reported Gastrointestinal: see HPI Genitourinary: no symptoms reported Musculoskeletal: no symptoms reported Skin: no symptoms reported Psychiatric/Neurological: No Symptoms Reported Hematologic/Lymphatic: No Symptoms Reported Immunological/Allergic: no symptoms reported Past Ndjbqzg-Nlxcxk-Kwcxah Hx Patient Social History Tobacco Use?: Yes Tobacco type used: Cigarettes Smoking Status: Current Everyday Smoker Substance use?: No Alcohol Use?: No Immunizations Up To Date Tetanus Booster (TDap): Unknown Past Medical History Surgery/Hospitalization HX: COPD, HTN, PANIC DISORDER, MAJOR DEPRESSIVE DISORDER,CHRONIC FATIGUE, GOUT, GERD, LOW BACK PAIN, COLLIN Surgeries: Yes (1972 pilonial cyst) Gallbladder Respiratory: Yes COPD Cardiac: Yes Hypertension Neurological: No Reproductive Disorders: No Gastrointestinal: Yes Gastroesophageal Reflux, Gall Bladder Disease Musculoskeletal: Yes Gout Endocrine: No HEENT: No Psychosocial: Yes Anxiety, Depression Blood Disorders: No Physical Exam-Suspected Sepsis Physical Exam Vital Signs Vital Signs - First Documented 07/19/23 10:30 Temp 36.4 Pulse 102 Resp 30 B/P (MAP) 113/73 (86) Pulse Ox 100 O2 Delivery Non Rebreather O2 Flow Rate 15.00 Capillary Refill : Less Than 3 Seconds Blood Pressure Mean: 86 Height, Weight, BMI Height: 5'11.00" Weight: 252lbs. 0.0oz. 114.724687qu; 38.00 BMI Method:Stated General Appearance: No Apparent Distress, WD/WN, Obese HEENT: PERRL/EOMI, Normal ENT Inspection Neck: Normal Inspection; No JVD Respiratory: Crackles, Rhonci, Other (Wet, coarse breath sounds) Cardiovascular: Regular Rate, Rhythm, Systolic Murmur, Other (edema) Gastrointestinal: Non Tender, Soft Extremity: Pedal Edema, Swelling Neurologic/Psychiatric: Alert, Oriented x3, No Motor/Sensory Deficits, Normal Mood/Affect Skin: normal color, warm/dry, other (Intertrigo under the skin folds of the breast) Focused Exam Sepsis Stage: Severe Sepsis Possible Source: Pulmonary Lactate Level 07/19/23 11:15: Lactic Acid Level 1.46 Time of Focused Exam: 13:30 Respiratory: Lungs Clear (On BiPAP) Cardiovascular: Regular Rate, Rhythm Skin: normal color, warm/dry Lactic Acid Level Within 3hrs of presentation: Admin fluids, Admin ABX, Blood cultures prior to ABX's, Focus exam, Lactate level Progress/Results/Core Measures Suspected Sepsis SIRS Temperature: Pulse: 102 Respiratory Rate: 30 Laboratory Tests 07/19/23 10:35: White Blood Count 18.8H 07/19/23 16:25: White Blood Count 15.6H Blood Pressure 113 /73 Mean: 86 07/19/23 11:15: Lactic Acid Level 1.46 Laboratory Tests 07/19/23 10:35: Platelet Count 160 07/19/23 11:05: Creatinine 3.39H, Total Bilirubin 2.0H 07/19/23 12:00: INR Comment 1.1 07/19/23 16:25: Platelet Count 197 Results/Orders Lab Results Laboratory Tests Test 07/19/23 10:35 07/19/23 10:40 07/19/23 11:05 07/19/23 11:15 Range/Units White Blood Count 18.8 H 4.3-11.0 10^3/uL Red Blood Count 5.58 H 4.30-5.52 10^6/uL Hemoglobin 15.4 13.3-17.7 g/dL Hematocrit 48 40-54 % Mean Corpuscular Volume 86 80-99 fL Mean Corpuscular Hemoglobin 28 25-34 pg Mean Corpuscular Hemoglobin Concent 32 32-36 g/dL Red Cell Distribution Width 15.5 H 10.0-14.5 % Platelet Count 160 130-400 10^3/uL Mean Platelet Volume 13.5 H 9.0-12.2 fL Immature Granulocyte % (Auto) 4 % Neutrophils (%) (Auto) 86 H 42-75 % Lymphocytes (%) (Auto) 2 L 12-44 % Monocytes (%) (Auto) 6 0-12 % Eosinophils (%) (Auto) 1 0-10 % Basophils (%) (Auto) 1 0-10 % Neutrophils # (Auto) 16.2 H 1.8-7.8 10^3/uL Lymphocytes # (Auto) 0.5 L 1.0-4.0 10^3/uL Monocytes # (Auto) 1.2 H 0.0-1.0 10^3/uL Eosinophils # (Auto) 0.2 0.0-0.3 10^3/uL Basophils # (Auto) 0.1 0.0-0.1 10^3/uL Immature Granulocyte # (Auto) 0.7 H 0.0-0.1 10^3/uL Neutrophils % (Manual) 92 % Lymphocytes % (Manual) 2 % Monocytes % (Manual) 6 % Eosinophils % (Manual) 0 % Basophils % (Manual) 0 % Band Neutrophils 0 % Blood Morphology Comment NORMAL B-Type Natriuretic Peptide 335.6 H <100.0 PG/ML Influenza Type A (RT-PCR) Not Detected Not Detecte Influenza Type B (RT-PCR) Not Detected Not Detecte SARS-CoV-2 RNA (RT-PCR) Not Detected Not Detecte Arterial Blood pH 7.24 *L 7.37-7.43 Arterial Blood Partial Pressure CO2 46 H 35-45 MMHG Arterial Blood Partial Pressure O2 49 L 79-93 MMHG Arterial Blood HCO3 20 L 23-27 MMOL/L Arterial Blood Total CO2 21.1 21.0-31.0 MMOL/L Arterial Blood Oxygen Saturation 76 L 94-100 % Arterial Blood Base Excess -7.6 L -2.5-2.5 MMOL/L Blood Gas Ventilator Setting NO Blood Gas Inspired Oxygen NA Sodium Level 133 L 135-145 MMOL/L Potassium Level 4.2 3.6-5.0 MMOL/L Chloride Level 100 98-107 MMOL/L Carbon Dioxide Level 17 L 21-32 MMOL/L Anion Gap 16 H 5-14 MMOL/L Blood Urea Nitrogen 71 H 7-18 MG/DL Creatinine 3.39 H 0.60-1.30 MG/DL Estimat Glomerular Filtration Rate 19 BUN/Creatinine Ratio 21 Glucose Level 103 70-105 MG/DL Calcium Level 8.0 L 8.5-10.1 MG/DL Corrected Calcium 8.7 8.5-10.1 MG/DL Total Bilirubin 2.0 H 0.1-1.0 MG/DL Aspartate Amino Transf (AST/SGOT) 49 H 5-34 U/L Alanine Aminotransferase (ALT/SGPT) 21 0-55 U/L Alkaline Phosphatase 113 40-136 U/L Total Creatine Kinase 1240 H 30-200 U/L C-Reactive Protein High Sensitivity 39.66 H 0.00-0.50 MG/DL Total Protein 6.6 6.4-8.2 GM/DL Albumin 3.1 L 3.2-4.5 GM/DL Lactic Acid Level 1.46 0.50-2.00 MMOL/L Test 07/19/23 12:00 07/19/23 15:42 07/19/23 16:25 07/19/23 17:30 Range/Units Prothrombin Time 15.0 H 12.2-14.7 SEC INR Comment 1.1 0.8-1.4 Activated Partial Thromboplast Time 30 24-35 SEC Urine Color ORANGE Urine Clarity CLOUDY Urine pH 5.0 5-9 Urine Specific [place] >=1.030 1.016-1.022 Urine Protein 3+ H NEGATIVE Urine Glucose (UA) TRACE H NEGATIVE Urine Ketones 1+ H NEGATIVE Urine Nitrite NEGATIVE NEGATIVE Urine Bilirubin 2+ H NEGATIVE Urine Urobilinogen 4.0 < = 1.0 MG/DL Urine Leukocyte Esterase TRACE H NEGATIVE Urine RBC (Auto) 1+ H NEGATIVE Urine RBC NONE /HPF Urine WBC 5-10 H /HPF Urine Squamous Epithelial Cells 2-5 /HPF Urine Crystals PRESENT H /LPF Urine Amorphous Sediment MOD SHIRLEY URATES H /LPF Urine Bacteria FEW H /HPF Urine Casts PRESENT /LPF Urine Hyaline Casts RARE /LPF Urine Granular Casts RARE /LPF Urine Mucus NEGATIVE /LPF Urine Culture Indicated CULTURE PENDING White Blood Count 15.6 H 4.3-11.0 10^3/uL Red Blood Count 5.08 4.30-5.52 10^6/uL Hemoglobin 14.1 13.3-17.7 g/dL Hematocrit 43 40-54 % Mean Corpuscular Volume 84 80-99 fL Mean Corpuscular Hemoglobin 28 25-34 pg Mean Corpuscular Hemoglobin Concent 33 32-36 g/dL Red Cell Distribution Width 15.1 H 10.0-14.5 % Platelet Count 197 130-400 10^3/uL Mean Platelet Volume 10.9 9.0-12.2 fL Immature Granulocyte % (Auto) 2 % Neutrophils (%) (Auto) 91 H 42-75 % Lymphocytes (%) (Auto) 2 L 12-44 % Monocytes (%) (Auto) 4 0-12 % Eosinophils (%) (Auto) 1 0-10 % Basophils (%) (Auto) 0 0-10 % Neutrophils # (Auto) 14.2 H 1.8-7.8 10^3/uL Lymphocytes # (Auto) 0.3 L 1.0-4.0 10^3/uL Monocytes # (Auto) 0.6 0.0-1.0 10^3/uL Eosinophils # (Auto) 0.1 0.0-0.3 10^3/uL Basophils # (Auto) 0.1 0.0-0.1 10^3/uL Immature Granulocyte # (Auto) 0.4 H 0.0-0.1 10^3/uL Arterial Blood pH 7.23 *L 7.37-7.43 Arterial Blood Partial Pressure CO2 42 35-45 MMHG Arterial Blood Partial Pressure O2 83 79-93 MMHG Arterial Blood HCO3 18 L 23-27 MMOL/L Arterial Blood Total CO2 18.9 L 21.0-31.0 MMOL/L Arterial Blood Oxygen Saturation 96 94-100 % Arterial Blood Base Excess -9.6 L -2.5-2.5 MMOL/L Blood Gas Ventilator Setting NO Blood Gas Inspired Oxygen 5 My Orders Orders - ZULEMA PEREZ MD Cbc And Automated Diff (07/19/23 10:33) Comprehensive Metabolic Panel (07/19/23 10:33) Blood Culture (07/19/23 10:33) Sputum Culture (07/19/23 10:33) Urinalysis (07/19/23 10:33) Urine Culture (07/19/23 10:33) Protime With Inr (07/19/23 10:33) Partial Thromboplastin Time (07/19/23 10:33) Chest 1 View, Ap/Pa Only (07/19/23 10:33) Ed Iv/Invasive Line Start (07/19/23 10:33) Vital Signs Adult Sepsis Patie Q15M (07/19/23 10:33) O2 (07/19/23 10:33) Remove Rings In Anticipation O (07/19/23 10:33) Lactic Acid Analyzer (07/19/23 10:33) Bnp Citrus (07/19/23 10:33) Hs C Reactive Protein (07/19/23 10:33) Ekg Tracing (07/19/23 10:33) Monitor-Rhythm Ecg Trace Only (07/19/23 10:33) Covid 19 Inhouse Test (07/19/23 10:33) Influenza A And B By Pcr (07/19/23 10:33) Arterial Blood Gas (07/19/23 10:35) Manual Differential (07/19/23 10:35) Arterial Blood Draw - Obtain (07/19/23 ) Cefepime Injection (Cefepime Injection) (07/19/23 13:15) Ns Iv 1000 Ml (Ns Iv 1000 Ml) (07/19/23 13:15) Ed Admission (Communication) (07/19/23 13:39) Code/Resuscitation (07/19/23 13:41) Medications Given in ED Current Medications Medications Dose Ordered Sig/Ad Route Start Time Stop Time Status Last Admin Dose Admin Cefepime HCl 2000 mg/Sodium Chloride 50 ml @ 100 mls/hr ONCE ONCE IV 07/19/23 13:15 07/19/23 13:44 DC 07/19/23 13:21 100 MLS/HR Vital Signs/I&O 07/19/23 07/19/23 07/19/23 07/19/23 10:30 10:30 11:05 14:15 Temp 36.4 Pulse 102 97 87 Resp 30 30 15 B/P (MAP) 113/73 (86) 108/88 (95) Pulse Ox 100 100 97 94 O2 Delivery Non Rebreather Non Rebreather Nasal Cannula O2 Flow Rate 15.00 15.00 35.00 5.00 07/19/23 07/19/23 07/19/23 07/19/23 14:25 14:29 14:30 14:30 Temp 36.4 Pulse 92 90 90 Resp 18 17 B/P (MAP) 100/66 108/81 (90) Pulse Ox 94 96 93 O2 Delivery NIV Bilevel Nasal Cannula High Flow N/C O2 Flow Rate 5.00 5.00 07/19/23 07/19/23 07/19/23 07/19/23 14:30 14:45 15:00 15:15 Pulse 90 92 92 Resp 17 33 39 B/P (MAP) 112/63 (79) 101/87 (92) 111/92 (98) Pulse Ox 96 93 92 O2 Delivery Nasal Cannula Nasal Cannula Nasal Cannula Nasal Cannula O2 Flow Rate 5.00 5.00 5.00 5.00 07/19/23 07/19/23 07/19/23 07/19/23 15:30 15:45 16:00 16:00 Pulse 93 83 96 Resp 38 26 32 B/P (MAP) 78/64 (69) 115/74 (88) 115/61 (79) Pulse Ox 94 94 91 O2 Delivery Nasal Cannula Nasal Cannula Nasal Cannula Nasal Cannula O2 Flow Rate 5.00 5.00 5.00 5.00 07/19/23 07/19/23 07/19/23 07/19/23 16:02 17:00 18:00 20:10 Temp 36.4 36.3 Pulse 98 96 Resp 34 36 B/P (MAP) 123/111 (115) 94/82 (86) Pulse Ox 97 91 O2 Delivery Nasal Cannula Nasal Cannula High Flow N/C O2 Flow Rate 5.00 5.00 5.00 07/19/23 07/19/23 20:15 21:27 Pulse Ox 91 O2 Delivery Nasal Cannula High Flow N/C O2 Flow Rate 5.00 5.00 Capillary Refill : Less Than 3 Seconds Blood Pressure Mean: 86 Progress Note : Progress Note Patient was interviewed and examined upon arrival. Report was received from EMS. Patient had coarse and wet breath sounds with new hypoxia despite nebulizer treatment. BiPAP was immediately requested and started at 16/8 with FiO2 of 35%. Patient felt comfortable at the settings. Chest x-ray was obtained and revealed a left mid lung consolidation with possible mass effect. Patient did have a PET scan last year which did not suggest malignancy. Labs were obtained and interpreted by me. CBC demonstrated a leukocytosis of 18.8. It should be noted patient had already received steroids at that point. However, CRP was also elevated at 39.66. Sepsis from pneumonia was suspected. Chemistry was notable for creatinine of 3.39 and BUN of 71. Baseline creatinine was unknown as no other recent labs were available. ABG demonstrated acidosis with pH of 7.24, hypercarbia with pCO2 of 46, and hypoxia with pO2 of 49. Urinalysis showed possible pyuria with 5-10 WBC and few bacteria. Patient received first dose of antibiotics with cefepime 2 g IV after obtaining blood cultures and lactic acid. 1 L of normal saline was infused. I discussed CODE STATUS with the patient, he elects full code at this time. Case was discussed with Dr. Araujo, hospitalist on-call for [facility]. She agrees to admission and is placing admission orders. ECG Initial ECG Impression Date: Jul 19, 2023 Initial ECG Impression Time: 10:54 Initial ECG Rate: 95 Initial ECG Rhythm: Normal Sinus Initial ECG Intervals: Normal Comment Sinus rhythm with no ST elevation or depression. No abnormal intervals or axis deviation. Diagnostic Imaging Diagonstic Imaging: Xray Plain Films/CT/US/NM/MRI: chest Comments NAME: KEMI ESTRADA V [facility] REC#: [id number] PT STATUS: REG ER : [id number] PHYSICIAN: ZULEMA PEREZ MD ADMIT DATE: 07/19/23/ER Signed Date of Exam:07/19/23 CHEST 1 VIEW, AP/PA ONLY INDICATION: Hypoxia, respiratory failure. COMPARISON: 07/23/2017 and PET/CT dated 10/06/2021 TECHNIQUE: 2 radiographs of the chest dated 07/19/2023 FINDINGS: The cardiac silhouette is within normal limits in size. No significant pulmonary vascular congestion. Dense ovoid masslike airspace consolidation is noted within the peripheral left midlung, new from the prior examination. Minimal right basilar interstitial opacities. Trace left pleural effusion. No pneumothorax. No acute osseous abnormality. IMPRESSION: Masslike airspace consolidation within the peripheral left midlung with trace left pleural effusion. This may relate to pneumonia. However, underlying mass/neoplasm not excluded. Therefore, recommend clinical correlation with additional radiographic follow-up 7-10 days after appropriate therapy to ensure resolution. Minimal right basilar atelectasis and/or pneumonitis. Dictated by: Dictated on workstation # [id number] Dict: 07/19/23 1107 Trans: 07/19/23 1125 [id number] Interpreted by: LANCE GLEASON MD Electronically signed by: LANCE GLEASON MD 07/19/23 1125 Departure Communication (Admissions) Time/Spoke to Admitting Phy: 13:07 Dr. Araujo Impression Primary Impression: Respiratory failure Qualified Codes: J96.01 - Acute respiratory failure with hypoxia; J96.02 - Acute respiratory failure with hypercapnia Additional Impressions: Pneumonia Qualified Codes: J18.9 - Pneumonia, unspecified organism Severe sepsis Acute kidney injury Disposition: ADMITTED INPATIENT Condition: Stable Admissions Decision to Admit Reason: Admit from ER (General) Decision to Admit/Date: Jul 19, 2023 Time/Decision to Admit Time: 13:07 Departure-Patient Inst. Referrals: KATE MARTELL MD (PCP/Family) Primary Care Physician ZULEMA PEREZ MD Jul 19, 2023 10:59
[2023-07-19 11:00] LABS: BASOPHILS # (AUTO) 0.1 10^3/uL (0.0-0.1); BASOPHILS % (AUTO) 1 % (0-10); EOSINOPHILS # (AUTO) 0.2 10^3/uL (0.0-0.3); EOSINOPHILS % (AUTO) 1 % (0-10); HEMATOCRIT 48 % (40-54); HEMOGLOBIN 15.4 g/dL (13.3-17.7); LYMPHOCYTES # (AUTO) 0.5 10^3/uL (1.0-4.0); LYMPHOCYTES % (AUTO) 2 % (12-44); MEAN CORPUSCULAR HEMOGLOBIN 28 pg (25-34); MEAN CORPUSCULAR HGB CONC 32 g/dL (32-36); MEAN CORPUSCULAR VOLUME 86 fL (80-99); MEAN PLATELET VOLUME 13.5 fL (9.0-12.2); MONOCYTES # (AUTO) 1.2 10^3/uL (0.0-1.0); MONOCYTES % (AUTO) 6 % (0-12); NEUTROPHILS # (AUTO) 16.2 10^3/uL (1.8-7.8); NEUTROPHILS % (AUTO) 86 % (42-75); PLATELET COUNT 160 10^3/uL (130-400); WHITE BLOOD COUNT 18.8 10^3/uL (4.3-11.0)
[2023-07-19 11:05] VITALS: BP 113/73
--- NOTE | 2023-07-19 11:13 | Diagnostic Imaging Report ---
INDICATION: Hypoxia, respiratory failure. COMPARISON: 07/23/2017 and PET/CT dated 10/06/2021 TECHNIQUE: 2 radiographs of the chest dated 07/19/2023 FINDINGS: The cardiac silhouette is within normal limits in size. No significant pulmonary vascular congestion. Dense ovoid masslike airspace consolidation is noted within the peripheral left midlung, new from the prior examination. Minimal right basilar interstitial opacities. Trace left pleural effusion. No pneumothorax. No acute osseous abnormality. IMPRESSION: Masslike airspace consolidation within the peripheral left midlung with trace left pleural effusion. This may relate to pneumonia. However, underlying mass/neoplasm not excluded. Therefore, recommend clinical correlation with additional radiographic follow-up 7-10 days after appropriate therapy to ensure resolution. Minimal right basilar atelectasis and/or pneumonitis. Dictated by: Dictated on workstation # [id number]
[2023-07-19 11:33] LABS: ALBUMIN 3.1 GM/DL (3.2-4.5); POTASSIUM 4.2 MMOL/L (3.6-5.0)
[2023-07-19 11:36] LABS: TOTAL PROTEIN 6.6 GM/DL (6.4-8.2)
[2023-07-19 11:39] LABS: CREATININE SERUM 3.39 MG/DL (0.60-1.30)
[2023-07-19 11:42] LABS: BAND NEUTROPHILS 0 %; BASOPHILS % (MANUAL) 0 %; EOSINOPHILS % (MANUAL) 0 %; LYMPHOCYTES % (MANUAL) 2 %; MONOCYTES % (MANUAL) 6 %; NEUTROPHILS % (MANUAL) 92 %; RBC MORPH NORMAL
[2023-07-19 12:37] LABS: INR 1.1 (0.8-1.4)
[2023-07-19] MEDS ORDERED: CEFEPIME INJECTION 2,000 MG in NS (IVPB) 50 ML 50 ML IV ONE (13:15)
[2023-07-19] MEDS ORDERED: NS IV 1000 ML 1,000 ML IV SCH (13:15)
[2023-07-19] MEDS ORDERED: AZITHROMYCIN INJECTION 500 MG in NS (IVPB) 250 ML 250 ML IV NR (15:30)
--- NOTE | 2023-07-19 15:33 | Tele-ICU Progress Note ---
Subjective Date Seen by a Provider: Jul 19, 2023 Time Seen by a Provider: 15:32 Subjective/Events-last exam (Tele-ICU Physician , consultation as per request of PCP Service provided via interactive audio and video telecommunications E-CARE system to a patient admitted to ICU bed in [facility]. Available chart/ vitals / labs / Images reviewed H&P is from ER notes Patient's information available about PMH, Shx, Fhx allergy reviewed inEMR. ROS as per chart and RN report Now in ICU, hemodynamically stable Video assessment done using teleICU camera, rest of exam as per RN Discussed with RN. Hospital course: (07/19) 67 y/o male with BALDEV and PNA A/P RALF large consolidation with small effusion - presumed PNA with h/o few days illness ( NEG swab for covid and flu ) - with reanl failure and PNA - high suspicios for legionella - will send Ag and add Z max - sputum cx to obtain - might need CT chest in close future Acute resp failure , hypoxic - due to above +/- bronchospam - steroids IV given in clinic as per report - ? to cont as per bedside MD - add nebs - NIPPV PRN BALDEV - con hydration gently for now - check UA - check CPK - check renal US -close f/up I/O met acidsosis - due to BALDEV ( lactate negative ) Lines : , (Central Line Necessity Reviewed) Breaux: OG: Nutrition: Analgesia: Anxiety/ delirium VTE Prophylaxis: heparin Stress Ulcer Prophylaxis: na Plans in collaboration with bedside consultants and IM MDs. Discussed with RN to reach out if any questions or concerns A total of 31 minutes of critical care time was devoted to this patient today, required to treat and/or prevent further deterioration of critical care co ndition ( as above ) . I am remotely monitoring this patient from another state. I am unable to do the bedside exam, and history/physical and pertinent information is taken from other notes in the computer and bedside staff. . Sepsis Event Evaluation Height, Weight, BMI Height: 5'11.00" Weight: 252lbs. 0.0oz. 114.230065cj; 40.43 BMI Method:Stated Focused Exam Lactate Level 07/19/23 11:15: Lactic Acid Level 1.46 Exam Exam Patient acknowledged, consented, and participated in this virtual visit which was conducted using real time audio/video Vital Signs Date Time Temp Pulse Resp B/P (MAP) Pulse Ox O2 Delivery O2 Flow Rate FiO2 07/19/23 14:30 90 17 108/81 (90) 96 Nasal Cannula 5.00 07/19/23 14:29 90 07/19/23 14:15 87 15 108/88 (95) 94 Nasal Cannula 5.00 07/19/23 11:05 97 30 97 35.00 07/19/23 10:30 36.4 102 30 113/73 (86) 100 Non Rebreather 15.00 07/19/23 10:30 100 Non Rebreather 15.00 Height & Weight Height: 5'11.00" Weight: 252lbs. 0.0oz. 114.559390vv; 40.43 BMI Method:Stated General Appearance: Other Capillary Refill: Less Than 3 Seconds Results Lab Laboratory Tests 07/19/23 10:35 07/19/23 11:05 Assessment/Plan Assessment/Plan 1 Critical Care: Critically Ill Patient ZANE ALEMAN MD Jul 19, 2023 15:33
[2023-07-19] MEDS ORDERED: NS IV 500 ML 500 ML IV PRN (16:00)
[2023-07-19] MEDS ORDERED: cefTRIAXone IV/IM 1,000 MG in NS (IVPB) 50 ML 50 ML IV SCH (16:00)
[2023-07-19 16:06] LABS: BILIRUBIN,URINE 2+ (NEGATIVE); CLARITY,URINE CLOUDY; COLOR,URINE ORANGE; GLUCOSE, URINE (UA) TRACE (NEGATIVE); KETONES,URINE 1+ (NEGATIVE); NITRITE,URINE NEGATIVE (NEGATIVE); PROTEIN,URINE 3+ (NEGATIVE)
[2023-07-19 16:12] LABS: AMORPHOUS SEDIMENT,UR MOD AMOR URATES /LPF; BACTERIA,URINE FEW /HPF; HYALINE CASTS, URINE RARE /LPF; LEUKOCYTE ESTERASE ,URINE TRACE (NEGATIVE)
[2023-07-19 16:13] LABS: GRANULAR CASTS,URINE RARE /LPF
[2023-07-19] MEDS: AZITHROMYCIN INJECTION 500 MG in NS (IVPB) 250 ML 250 ML IV SCH (16:18)
[2023-07-19] MEDS: LACTATED RINGERS 1,000 ML 1,000 ML IV SCH ×2 (16:19→23:44)
[2023-07-19 16:32] LABS: BASOPHILS # (AUTO) 0.1 10^3/uL (0.0-0.1); BASOPHILS % (AUTO) 0 % (0-10); EOSINOPHILS # (AUTO) 0.1 10^3/uL (0.0-0.3); EOSINOPHILS % (AUTO) 1 % (0-10); HEMATOCRIT 43 % (40-54); HEMOGLOBIN 14.1 g/dL (13.3-17.7); LYMPHOCYTES # (AUTO) 0.3 10^3/uL (1.0-4.0); LYMPHOCYTES % (AUTO) 2 % (12-44); MEAN CORPUSCULAR HEMOGLOBIN 28 pg (25-34); MEAN CORPUSCULAR HGB CONC 33 g/dL (32-36); MEAN CORPUSCULAR VOLUME 84 fL (80-99); MEAN PLATELET VOLUME 10.9 fL (9.0-12.2); MONOCYTES # (AUTO) 0.6 10^3/uL (0.0-1.0); MONOCYTES % (AUTO) 4 % (0-12); NEUTROPHILS # (AUTO) 14.2 10^3/uL (1.8-7.8); NEUTROPHILS % (AUTO) 91 % (42-75); PLATELET COUNT 197 10^3/uL (130-400); WHITE BLOOD COUNT 15.6 10^3/uL (4.3-11.0)
[2023-07-19] MEDS ORDERED: LIDOCAINE UROJET 2% GEL 10 ML PKG ONE (16:35)
--- NOTE | 2023-07-19 16:38 | Diagnostic Imaging Report ---
PROCEDURE: US Renal Bilateral. TECHNIQUE: Multiple real-time grayscale images were obtained over the kidneys in various projections bilaterally. INDICATION: Acute renal failure. COMPARISON: 02/09/2017. FINDINGS: Right and left kidneys measure 11 x 6.2 x 6.1 cm and 11 x 5.1 x 5.6 cm, respectively. There is no evidence of hydronephrosis or solid renal mass. No perinephric fluid collection is identified, although there is an approximately 1.8 cm cyst projecting along the inferior pole of the left kidney. Bladder was not evaluated. IMPRESSION: Lower pole cyst arising from left kidney with otherwise unremarkable bilateral renal ultrasound. Dictated by: Dictated on workstation # [id number]
--- NOTE | 2023-07-19 16:39 | History & Physical ---
TULIO DUNBAR 07/19/23 1639: HPI History of Present Illness: Source: patient Exam Limitations: no limitations Date seen by provider: Jul 19, 2023 Time Seen by Provider: 14:50 Attending Physician Brigette Araujo MD PCP Admitting Physician: Brigette Araujo MD Consult Norman Reardon is a 67 year old male with a past medical history of COPD, HTN and anxiety that presented to the ED with worsening SOA. Patient reports that symptoms started last as some SOA that gradually increased in severity untill when he presented to the clinic nearly unable to breath. Patient also e ndorses fever of 102F that started Wednesday. Patient reports similar symptoms several times before with the most recent episode happening around 6-8 months ago where he presented to his PCP and was treated for pneumonia. Date of Admission Jul 19, 2023 at 13:59 Home Medications Home Medications Reviewed patient Home Medication Reconciliation performed by pharmacy medication reconciliations nuclear chemistry technician and/or nursing. Patients Allergies have been reviewed. Allergies Coded Allergies: No Known Drug Allergies (Verified , 03/23/08) [id number] Hx Patient Social History Smoking Status: Current Everyday Smoker (1/2 PPD) 2nd Hand Smoke Exposure: No Alcohol Use?: No Tobacco type used: Cigarettes Immunizations Up To Date Tetanus Booster (TDap): Unknown Influenza Vaccine Up-to-Date: Yes; Up-to-Date Past Medical History COPD HTN Anxiety Cholecystectomy 4 years ago Family Medical History Significant Family History: Cancer (type unknown ), COPD Review of Systems (CHC) Constitutional: chills, fever EENTM: No blurred vision, No double vision, No vision loss Respiratory: No cough; short of breath Cardiovascular: No edema Gastrointestinal: No abdominal pain, No constipation, No diarrhea, No heartburn, No nausea, No vomiting Genitourinary: No dysuria Skin: No pruritus, No rash Psychiatric/Neurological: Denies Headache Reviewed Test Results Reviewed Test Results Radiology CXR 07/19/23 IMPRESSION: Masslike airspace consolidation within the peripheral left midlung with trace left pleural effusion. This may relate to pneumonia. However, underlying mass/neoplasm not excluded. Therefore, recommend clinical correlation with additional radiographic follow-up 7-10 days after appropriate therapy to ensure resolution. Physical Exam-([facility]) Physical Exam Vital Signs VS - Last 72 Hours, by Label 07/19/23 07/19/23 07/19/23 07/19/23 10:30 10:30 11:05 14:15 Temp 36.4 Pulse 102 97 87 Resp 30 30 15 B/P (MAP) 113/73 (86) 108/88 (95) Pulse Ox 100 100 97 94 O2 Delivery Non Rebreather Non Rebreather Nasal Cannula O2 Flow Rate 15.00 15.00 35.00 5.00 07/19/23 07/19/23 07/19/23 07/19/23 14:29 14:30 14:30 14:30 Pulse 90 90 Resp 17 B/P (MAP) 108/81 (90) Pulse Ox 96 93 O2 Delivery Nasal Cannula High Flow N/C Nasal Cannula O2 Flow Rate 5.00 5.00 5.00 07/19/23 07/19/23 07/19/23 07/19/23 14:45 15:00 15:15 15:30 Pulse 90 92 92 93 Resp 17 33 39 38 B/P (MAP) 112/63 (79) 101/87 (92) 111/92 (98) 78/64 (69) Pulse Ox 96 93 92 94 O2 Delivery Nasal Cannula Nasal Cannula Nasal Cannula Nasal Cannula O2 Flow Rate 5.00 5.00 5.00 5.00 07/19/23 07/19/23 07/19/23 07/19/23 15:45 16:00 16:02 17:00 Temp 36.4 Pulse 83 96 98 Resp 26 32 34 B/P (MAP) 115/74 (88) 115/61 (79) 123/111 (115) Pulse Ox 94 91 97 O2 Delivery Nasal Cannula Nasal Cannula Nasal Cannula O2 Flow Rate 5.00 5.00 5.00 Capillary Refill : Less Than 3 Seconds General Appearance: obese HEENT: PERRL/EOMI Respiratory: chest non-tender, rhonchi, other (Patient's respirations assisted via BIPAP) Cardiovascular: regular rate, rhythm, no edema Gastrointestinal: non tender, soft, no organomegaly Extremities: no pedal edema Neurologic/Psychiatric: alert, oriented x 3 Skin: cool; No diaphoresis Assessment/Plan Assessment/Plan (1) Respiratory failure Status: Acute Assessment & Plan: Masslike airspace consolidation within the peripheral left midlung with trace left pleural effusion seen on CXR Plan: Obtain sputum culture Start IV steroids Start IV ceftriaxone and azithromycin for suspected pneumonia or COPD exacerbation continue NIPPV Qualifiers: Qualified Codes: J96.01 - Acute respiratory failure with hypoxia; J96.02 - Acute respiratory failure with hypercapnia (2) BALDEV (acute kidney injury) Assessment & Plan: Creatinine 3.39 elevated from baseline BUN 71 continue IV fluids obtain UA BRIGETTE ARAUJO MD 07/19/23 1758: Home Medications Allergies Coded Allergies: No Known Drug Allergies (Verified , 03/23/08) Assessment/Plan Assessment/Plan Admission Status: Inpatient Order (span 2 midnights) Reason for Inpatient Admission: Severe sepsis (1) Respiratory failure Status: Acute Qualifiers: Qualified Codes: J96.01 - Acute respiratory failure with hypoxia; J96.02 - Acute respiratory failure with hypercapnia (2) BALDEV (acute kidney injury) (3) Severe sepsis Status: Acute (4) Pneumonia Status: Acute Qualifiers: Supervisory-Addendum Brief Verification & Attestation Participated in pt care: history, MDM, physical Personally performed: exam, history, MDM, supervision of care Care discussed with: Medical Student Procedures: n/a I personally performed or re-performed the history, physical exam and treatment for the E/M. I discussed the case with the Medical Student, and concur with the Medical Student documentation of history, physical exam and treatment plan unless otherwise noted. Pt has suspected pneumonia causing severe sepsis with acute kidney injury, started on antibiotics and IVF and requiring bipap, repeat ABG after arrival to ICU. TULIO DUNBAR Jul 19, 2023 16:39 BRIGETTE ARAUJO MD Jul 19, 2023 17:58
[2023-07-19] MEDS ORDERED: LIDOCAINE UROJET 2% GEL 10 ML PKG TOP ONE (16:45)
[2023-07-19 17:38] LABS: ABG BASE EXCESS -9.6 MMOL/L (-2.5-2.5); ABG OXYGEN SATURATION 96 % (94-100); ABG PCO2 42 MMHG (35-45); ABG PO2 83 MMHG (79-93); ABG TCO2 18.9 MMOL/L (21.0-31.0)
[2023-07-19 17:40] LABS: ABG PH 7.23 (7.37-7.43); INSPIRED O2 5; VENTILATOR NO
[2023-07-19] MEDS: RT-Ipratropium/Albuterol NEB 3 ML VIAL INH SCH ×2 (21:24→21:27)
[2023-07-20] MEDS: RT-Ipratropium/Albuterol NEB 3 ML VIAL INH SCH ×6 (02:39→22:19)
[2023-07-20] MEDS ORDERED: LACTATED RINGERS 1,000 ML 500 ML IV ONE (03:00)
[2023-07-20 04:34] LABS: BASOPHILS # (AUTO) 0.1 10^3/uL (0.0-0.1); BASOPHILS % (AUTO) 0 % (0-10); EOSINOPHILS % (AUTO) 0 % (0-10); HEMATOCRIT 41 % (40-54); HEMOGLOBIN 13.4 g/dL (13.3-17.7); LYMPHOCYTES # (AUTO) 0.4 10^3/uL (1.0-4.0); LYMPHOCYTES % (AUTO) 3 % (12-44); MEAN CORPUSCULAR HEMOGLOBIN 27 pg (25-34); MEAN CORPUSCULAR HGB CONC 33 g/dL (32-36); MEAN CORPUSCULAR VOLUME 84 fL (80-99); MEAN PLATELET VOLUME 10.3 fL (9.0-12.2); MONOCYTES # (AUTO) 0.8 10^3/uL (0.0-1.0); MONOCYTES % (AUTO) 6 % (0-12); NEUTROPHILS # (AUTO) 12.2 10^3/uL (1.8-7.8); NEUTROPHILS % (AUTO) 90 % (42-75); PLATELET COUNT 148 10^3/uL (130-400); WHITE BLOOD COUNT 13.6 10^3/uL (4.3-11.0)
[2023-07-20 04:43] LABS: POTASSIUM 3.9 MMOL/L (3.6-5.0)
[2023-07-20 04:45] LABS: CALCIUM 7.8 MG/DL (8.5-10.1)
[2023-07-20 04:49] LABS: CREATININE SERUM 3.6 MG/DL (0.60-1.30)
[2023-07-20 04:52] LABS: MAGNESIUM 1.3 MG/DL (1.6-2.4)
[2023-07-20] MEDS: POTASSIUM CHLORIDE 20 MEQ TABLET PO SCH (05:25)
[2023-07-20] MEDS: POTASSIUM CL 10MEQ/50ML IVPB 50 ML IV SCH (05:25)
[2023-07-20] MEDS: MAGNESIUM 1 GM/100 ML IVPB 100 ML IV SCH ×3 (05:25→07:05)
[2023-07-20 07:12] VITALS: BP 98/61
[2023-07-20] MEDS ORDERED: POTASSIUM CHLORIDE 20 MEQ TABLET PO ONE (08:00)
[2023-07-20] MEDS: LACTATED RINGERS 1,000 ML 1,000 ML IV SCH ×2 (08:31→16:22)
[2023-07-20] MEDS: predniSONE 20 MG TABLET PO SCH (08:31)
[2023-07-20] MEDS ORDERED: AZITHROMYCIN INJECTION 250 MG in NS (IVPB) 250 ML 250 ML IV SCH (09:00)
--- NOTE | 2023-07-20 09:08 | Tele-ICU Progress Note ---
Subjective Date Seen by a Provider: Jul 20, 2023 Time Seen by a Provider: 09:08 Subjective/Events-last exam (Tele-ICU Physician , Progress Note ) Service provided via interactive audio and video telecommunications [facility] s vern to a patient admitted to ICU bed in [facility]. Patient is seen today due to persistent need of ICU care Available chart/ vitals / labs / Images reviewed Video assessment done using teleICU camera, rest of exam as per RN He is a 67-year-old male with past medical history of morbid obesity presented to the emergency room from [facility] clinic where he was found to be very short of breath and hypoxic. In the emergency room he is found to be tachycardic. Reportedly he had a cough fever and shortness of breath for several days associated with the diarrhea and he had a temperature of 202 F. He is not on any oxygen at home. Chest x-ray upon admission revealed a left upper lobe masslike consolidation. He is admitted to the intensive care unit and started on BiPAP ventilation as well as IV Rocephin and azithromycin with a suspicion that he may have Legionella pneumonia. Underlying malignancy not ruled out. However today his blood cultures grew gram-positive organisms suspicious for streptococcal pneumonia. He is a BUN/creatinine also markedly el evated at 83/3.60. He has apparently has a history of for COPD. Today he is afebrile. Impression 1. Left upper lobe pneumonia with gram-positive sepsis 2. Acute hypoxic respiratory failure requiring BiPAP ventilation 3. Morbid obesity with possible underlying sleep apnea 4. History of COPD 5. Left upper lobe masslike consolidation. Even though it could be just a pneumonia but underlying malignancy cannot be ruled out. 6. Possible acute kidney injury. Recommendations 1. Continue azithromycin and increase Rocephin to 2 g daily 2. Bronchodilator therapy 3. Hydrate patient and monitor BUN/creatinine. 4. DVT prophylaxis. 5. When stable we will get a CT of the chest without contrast. Coordination of care with primary care physician and bedside consultants. Discussed with the PIANO MACHINE OPERATOR as well as in MDR. I am remotely monitoring this patient from Tele icu station in [place]. I am unable to do the bedside exam, and history/physical and pertinent information is taken from other notes in the computer and bedside staff. Certain portions of this document may have been dictated utilizing voice recognition technology such as [employer]. Inherent to this technology, typographical and grammatical errors may exist. As much as I am diligent to identify and correct to these mistakes, some errors may remain in the document. Critical care time devoted to this patient today is approximately is 35 minutes-- Sepsis Event Evaluation Height, Weight, BMI Height: 5'11.00" Weight: 252lbs. 0.0oz. [id number]; 40.43 BMI Method:Stated Focused Exam Lactate Level 07/19/23 11:15: Lactic Acid Level 1.46 Time of Focused Exam: 13:30 Exam Exam Patient acknowledged, consented, and participated in this virtual visit which was conducted using real time audio/video Vital Signs Date Time Temp Pulse Resp B/P (MAP) Pulse Ox O2 Delivery O2 Flow Rate FiO2 07/20/23 08:30 36.1 07/20/23 07:46 NIV Bilevel 30.00 07/20/23 07:00 79 07/20/23 06:00 73 14 112/67 (82) 100 NIV Bilevel 35.00 07/20/23 05:00 73 21 105/60 (75) 100 NIV Bilevel 35.00 07/20/23 04:09 36.0 07/20/23 04:00 81 15 103/56 (72) 100 NIV Bilevel 35.00 07/20/23 03:52 NIV Bilevel 07/20/23 03:00 82 21 103/59 (74) 100 NIV Bilevel 35.00 07/20/23 02:39 81 23 100 35.00 07/20/23 02:00 70 21 103/56 (72) 100 NIV Bilevel 35.00 07/20/23 01:00 74 18 104/64 (77) 100 NIV Bilevel 35.00 07/20/23 01:00 83 07/20/23 00:00 79 9 99/84 (89) 100 NIV Bilevel 35.00 07/19/23 23:23 NIV Bilevel 07/19/23 23:00 69 20 101/64 (76) 99 NIV Bilevel 35.00 07/19/23 22:47 89 24 97 35.00 07/19/23 22:30 80 22 98/85 (89) 99 NIV Bilevel 35.00 07/19/23 22:00 90 22 Nasal Cannula 5.00 07/19/23 21:27 91 High Flow N/C 5.00 07/19/23 21:00 89 25 90/82 (85) 98 Nasal Cannula 5.00 07/19/23 20:15 Nasal Cannula 5.00 07/19/23 20:10 36.3 High Flow N/C 5.00 07/19/23 20:00 92 28 111/76 (88) 97 Nasal Cannula 5.00 07/19/23 19:16 98 29 139/72 (94) Nasal Cannula 5.00 07/19/23 19:00 95 07/19/23 18:00 96 36 94/82 (86) 91 Nasal Cannula 5.00 07/19/23 17:00 98 34 123/111 (115) 97 Nasal Cannula 5.00 07/19/23 16:02 36.4 07/19/23 16:00 96 32 115/61 (79) 91 Nasal Cannula 5.00 07/19/23 16:00 Nasal Cannula 5.00 07/19/23 15:45 83 26 115/74 (88) 94 Nasal Cannula 5.00 07/19/23 15:30 93 38 78/64 (69) 94 Nasal Cannula 5.00 07/19/23 15:15 92 39 111/92 (98) 92 Nasal Cannula 5.00 07/19/23 15:00 92 33 101/87 (92) 93 Nasal Cannula 5.00 07/19/23 14:45 90 17 112/63 (79) 96 Nasal Cannula 5.00 07/19/23 14:30 Nasal Cannula 5.00 07/19/23 14:30 93 High Flow N/C 5.00 07/19/23 14:30 90 17 108/81 (90) 96 Nasal Cannula 5.00 07/19/23 14:29 90 07/19/23 14:25 36.4 92 18 100/66 94 NIV Bilevel 07/19/23 14:15 87 15 108/88 (95) 94 Nasal Cannula 5.00 07/19/23 11:05 97 30 97 35.00 07/19/23 10:30 36.4 102 30 113/73 (86) 100 Non Rebreather 15.00 07/19/23 10:30 100 Non Rebreather 15.00 I & O 07/20/23 07:00 Intake Total 500 ml Output Total 550 ml Balance -50 ml Height & Weight Height: 5'11.00" Weight: 252lbs. 0.0oz. [id number]; 40.43 BMI Method:Stated General Appearance: No Apparent Distress, WD/WN, Obese HEENT: PERRL/EOMI, Normal ENT Inspection Neck: Normal Inspection; No JVD Respiratory: Lungs Clear (On BiPAP) Cardiovascular: Regular Rate, Rhythm Capillary Refill: Less Than 3 Seconds Gastrointestinal: non tender, soft, no organomegaly Extremity: Pedal Edema, Swelling Neurologic/Psychiatric: Alert, Oriented x3, No Motor/Sensory Deficits, Normal Mood/Affect Results Lab Laboratory Tests 07/19/23 10:35 07/19/23 11:05 07/19/23 16:25 07/20/23 04:25 Assessment/Plan Assessment/Plan as above Critical Care: Critically Ill Patient Time spent with patient (mins): 35 RAY HERNANDEZ MD Jul 20, 2023 09:08
--- NOTE | 2023-07-20 13:32 | Progress Note ---
TULIO DUNBAR 07/20/23 1332: Subjective Subjective/Events-last exam Norman Reardon was a little tired this morning but reported good sleep last night. He also reports feeling good this morning and feels like his breathing is improving. He was a little slow to answer questions this morning but reported that he does not have WHITEHEAD, dysphasia, SOA, cough, chest pain or palpitations. He reported no difficulty or burning with urination. He also has not felt feverish since yesterday. He was a little disoriented to where he was at and the date but could tell me his name and answer questions. Review of Systems General: No Chills, No Night Sweats HEENT: No Head Aches, No Visual Changes, No Dysphasia Pulmonary: No Dyspnea, No Cough Cardiovascular: No: Chest Pain, Palpitations Gastrointestinal: No: Nausea, Vomiting, Abdominal Pain, Diarrhea, Constipation Genitourinary: No Dysuria Musculoskeletal: No: back pain Focused Exam Lactate Level 07/19/23 11:15: Lactic Acid Level 1.46 Time of Focused Exam: 13:30 Objective Exam Last Set of Vital Signs Vital Signs Date Time Temp Pulse Resp B/P (MAP) Pulse Ox O2 Delivery O2 Flow Rate FiO2 07/20/23 13:06 85 07/20/23 12:00 21 122/72 (89) 95 NIV Bilevel 25.00 07/20/23 11:13 36.5 07/20/23 08:00 30 Capillary Refill : Less Than 3 Seconds I&O Intake and Output 07/19/23 23:59 Intake Total 300 ml Output Total 325 ml Balance -25 ml Intake Oral 250 ml IV Total 50 ml Output Urine Total 325 ml Daily Weight Change No General: Cooperative, No Acute Distress HEENT: PERRLA, EOMI Lungs: Other (Crackles and rhonchi present bilaterally) Heart: Regular Rate Abdomen: Normal Bowel Sounds, Soft, No Tenderness Extremities: Normal Pulses Skin: Other (Warm/ dry skin) Neuro: Normal Speech, Other (Oriented only to person ) Results/Procedures Lab Laboratory Tests 07/19/23 15:42: Urine Color ORANGE, Urine Clarity CLOUDY, Urine pH 5.0, Urine Specific Stanley >=1.030, Urine Protein 3+H, Urine Glucose (UA) TRACEH, Urine Ketones 1+H, Urine Nitrite NEGATIVE, Urine Bilirubin 2+H, Urine Urobilinogen 4.0, Urine Leukocyte Esterase TRACEH, Urine RBC (Auto) 1+H, Urine RBC NONE, Urine WBC 5-10H, Urine Squamous Epithelial Cells 2-5, Urine Crystals PRESENTH, Urine Amorphous Sediment MOD SHIRLEY URATESH, Urine Bacteria FEWH, Urine Casts PRESENT, Urine Hyaline Casts RARE, Urine Granular Casts RARE, Urine Mucus NEGATIVE, Urine Culture Indicated CULTURE PENDING, Urine Legionella pneumophilia Ag Negative 07/19/23 16:25: White Blood Count 15.6H, Red Blood Count 5.08, Hemoglobin 14.1, Hematocrit 43, Mean Corpuscular Volume 84, Mean Corpuscular Hemoglobin 28, Mean Corpuscular Hemoglobin Concent 33, Red Cell Distribution Width 15.1H, Platelet Count 197, Mean Platelet Volume 10.9, Immature Granulocyte % (Auto) 2, Neutrophils (%) (Auto) 91H, Lymphocytes (%) (Auto) 2L, Monocytes (%) (Auto) 4, Eosinophils (%) (Auto) 1, Basophils (%) (Auto) 0, Neutrophils # (Auto) 14.2H, Lymphocytes # (Auto) 0.3L, Monocytes # (Auto) 0.6, Eosinophils # (Auto) 0.1, Basophils # (Auto) 0.1, Immature Granulocyte # (Auto) 0.4H 07/19/23 17:30: Arterial Blood pH 7.23*L, Arterial Blood Partial Pressure CO2 42, Arterial Blood Partial Pressure O2 83, Arterial Blood HCO3 18L, Arterial Blood Total CO2 18.9L, Arterial Blood Oxygen Saturation 96, Arterial Blood Base Excess -9.6L, Blood Gas Ventilator Setting NO, Blood Gas Inspired Oxygen 5 07/20/23 04:25: White Blood Count 13.6H, Red Blood Count 4.90, Hemoglobin 13.4, Hematocrit 41, Mean Corpuscular Volume 84, Mean Corpuscular Hemoglobin 27, Mean Corpuscular Hemoglobin Concent 33, Red Cell Distribution Width 15.3H, Platelet Count 148, Mean Platelet Volume 10.3, Immature Granulocyte % (Auto) 1, Neutrophils (%) (Auto) 90H, Lymphocytes (%) (Auto) 3L, Monocytes (%) (Auto) 6, Eosinophils (%) (Auto) 0, Basophils (%) (Auto) 0, Neutrophils # (Auto) 12.2H, Lymphocytes # (Aut o) 0.4L, Monocytes # (Auto) 0.8, Eosinophils # (Auto) 0.0, Basophils # (Auto) 0.1, Immature Granulocyte # (Auto) 0.2H, Percent Immature Platelet Fraction 2.9, Sodium Level 134L, Potassium Level 3.9, Chloride Level 103, Carbon Dioxide Level 15L, Anion Gap 16H, Blood Urea Nitrogen 83H, Creatinine 3.60H, Estimat Glomerular Filtration Rate 18, BUN/Creatinine Ratio 23, Glucose Level 113H, Calcium Level 7.8L, Magnesium Level 1.3L, Total Creatine Kinase 1051H 07/20/23 11:16: Glucometer 110 Microbiology 07/19/23 MRSA Screen - Final, Complete MRSA not isolated 07/19/23 Blood Culture - Preliminary, Resulted Probable Strep Pneumoniae Radiology CXR 07/19/23 IMPRESSION: Masslike airspace consolidation within the peripheral left midlung with trace left pleural effusion. This may relate to pneumonia. However, underlying mass/neoplasm not excluded. Therefore, recommend clinical correlation with additional radiographic follow-up 7-10 days after appropriate therapy to ensure resolution. Assessment/Plan Assessment/Plan (1) Respiratory failure Status: Acute Assessment & Plan: Patient has history of COPD Continue PO prednisone for potential COPD exacerbation Qualifiers: Qualified Codes: J96.01 - Acute respiratory failure with hypoxia; J96.02 - Acute respiratory failure with hypercapnia (2) BALDEV (acute kidney injury) Assessment & Plan: morning CMP showed worsening kidney function. A repeat CMP was ordered for the afternoon which showed some improvement in Creatinine. Cr 3.60, This AM up from Cr 3.39. Most recent Cr 3.30 Plan: Continue IV fluids Will recheck CMP in the morning. (3) Severe sepsis Status: Acute Assessment & Plan: 2x blood cultures grew strep pneumoniae. Sensitivities pending patient already on ceftriaxone and azithromycin. will adjust Abx based on sensitivities if indicated. (4) Pneumonia Status: Acute Assessment & Plan: Continue ceftriaxone and azithromycin. Qualifiers: Qualified Codes: J18.9 - Pneumonia, unspecified organism (5) Acute encephalopathy Assessment & Plan: Patient only oriented to self this morning. Most recent ABG (07/19): pCO2 42 and pO2 83 Likely caused by BALDEV or Sepsis. Will continue to monitor as patient is receiving treatment for Sepsis and BALDEV FLORENTINO TIJERINA MD 07/20/23 1752: Supervisory-Addendum Brief Verification & Attestation Participated in pt care: history, MDM, physical Personally performed: exam, history, MDM, supervision of care Care discussed with: Medical Student Procedures: n/a I personally performed or re-performed the history, physical exam and treatment for the E/M. I discussed the case with the Medical Student, and concur with the Medical Student documentation of history, physical exam and treatment plan unl ess otherwise noted. Pt continues to have significant metabolic acidosis with BALDEV and poor urine output, renal US okay, suspect due to sepsis, but is not showing significant improvement yet with treatment of underlying infection. If creatinine doesn't improve or acidosis worsens may need transfer to facility with dialysis capabilities. At time of my exam, patient lethargic but arousable and oriented to person and place. TULIO DUNBAR Jul 20, 2023 13:32 FLORENTINO TIJERINA MD Jul 20, 2023 17:52
[2023-07-20 14:16] VITALS: BP 120/73
[2023-07-20] MEDS: AZITHROMYCIN INJECTION 500 MG in NS (IVPB) 250 ML 250 ML IV SCH (15:08)
[2023-07-20 15:17] LABS: POTASSIUM 3.7 MMOL/L (3.6-5.0)
[2023-07-20 15:18] LABS: CALCIUM 8.2 MG/DL (8.5-10.1)
[2023-07-20 15:22] LABS: CREATININE SERUM 3.3 MG/DL (0.60-1.30)
[2023-07-20] MEDS ORDERED: DULO60CA59 PO (15:34)
[2023-07-20] MEDS ORDERED: ALBU18HF2 INH (15:34)
[2023-07-20] MEDS ORDERED: ATEN50TA PO (15:34)
[2023-07-20] MEDS ORDERED: ATOR40TA70 PO (15:34)
[2023-07-20] MEDS ORDERED: SUCR1TAB PO (15:34)
[2023-07-20] MEDS ORDERED: CLON0.5T4 PO (15:34)
[2023-07-20] MEDS ORDERED: BUDE10.22 INH (15:34)
[2023-07-20] MEDS ORDERED: TIOT4MIS5 INH (15:34)
[2023-07-20] MEDS ORDERED: IBUP-1780 PO (15:34)
[2023-07-20] MEDS ORDERED: HYDR-3820 PO (15:34)
[2023-07-20] MEDS ORDERED: LISI20TA26 PO (15:34)
[2023-07-20] MEDS ORDERED: FLUT16SP22 NSEACH (15:34)
[2023-07-20] MEDS ORDERED: ESOM40CA52 PO (15:34)
[2023-07-20] MEDS ORDERED: CEFTRIAXONE IV SCH (16:00)
[2023-07-20] MEDS ORDERED: NS IV SCH (16:00)
[2023-07-20] MEDS: cefTRIAXone 2,000 MG/NS 50 ML IVPB IV SCH ×2 (16:21)
[2023-07-20 22:19] VITALS: BP 120/86
[2023-07-21] MEDS: LACTATED RINGERS 1,000 ML 1,000 ML IV SCH ×3 (00:02→16:22)
[2023-07-21 02:05] VITALS: BP 141/84
[2023-07-21] MEDS: RT-Ipratropium/Albuterol NEB 3 ML VIAL INH SCH ×6 (02:06→22:49)
[2023-07-21 04:29] LABS: BASOPHILS % (AUTO) 0 % (0-10); EOSINOPHILS % (AUTO) 0 % (0-10); HEMATOCRIT 40 % (40-54); HEMOGLOBIN 13.3 g/dL (13.3-17.7); LYMPHOCYTES # (AUTO) 0.3 10^3/uL (1.0-4.0); LYMPHOCYTES % (AUTO) 3 % (12-44); MEAN CORPUSCULAR HEMOGLOBIN 27 pg (25-34); MEAN CORPUSCULAR HGB CONC 33 g/dL (32-36); MEAN CORPUSCULAR VOLUME 82 fL (80-99); MONOCYTES # (AUTO) 0.8 10^3/uL (0.0-1.0); MONOCYTES % (AUTO) 6 % (0-12); NEUTROPHILS % (AUTO) 90 % (42-75); PLATELET COUNT 174 10^3/uL (130-400); WHITE BLOOD COUNT 13.4 10^3/uL (4.3-11.0)
[2023-07-21 04:42] LABS: CALCIUM 8.3 MG/DL (8.5-10.1); CREATININE SERUM 2.56 MG/DL (0.60-1.30); MAGNESIUM 1.6 MG/DL (1.6-2.4); POTASSIUM 3.4 MMOL/L (3.6-5.0)
[2023-07-21] MEDS: POTASSIUM CL 10MEQ/50ML IVPB 50 ML IV SCH ×4 (06:08→11:42)
[2023-07-21] MEDS: MAGNESIUM 1 GM/100 ML IVPB 100 ML IV SCH ×4 (06:09→11:42)
[2023-07-21] MEDS: POTASSIUM CHLORIDE 20 MEQ TABLET PO SCH (06:10)
--- NOTE | 2023-07-21 07:47 | Progress Note ---
TULIO DUNBAR 07/21/23 0747: Subjective Subjective/Events-last exam Patient is feeling better this morning and is more oriented today. He was oriented to person place and situation this morning and when asked again later in the morning was oriented x4. Patient commented that he really felt out of it yesterday and that today he feels that he is nearly back to normal. He also said that he experienced the same feeling of disorientation when he was at and had to have is gallbladder removed. He feels like his breathing is fair and improved form yesterday. he also had his nasal cannula off for around 30 min and continued to have oxygen saturation readings around 94%. Patient denies any home supplemental oxygen use. Patient has no questions or concerns about his care this morning. Review of Systems General: No Chills, No Night Sweats HEENT: No Head Aches, No Visual Changes, No Eye Pain, No Ear Pain, No Dysphasia Pulmonary: Dyspnea; No Cough Cardiovascular: No: Chest Pain, Palpitations Gastrointestinal: No: Nausea, Vomiting, Abdominal Pain, Diarrhea, Constipation Genitourinary: No Dysuria Focused Exam Lactate Level 07/19/23 11:15: Lactic Acid Level 1.46 Time of Focused Exam: 13:30 Objective Exam Last Set of Vital Signs Vital Signs Date Time Temp Pulse Resp B/P (MAP) Pulse Ox O2 Delivery O2 Flow Rate FiO2 07/21/23 07:17 100 High Flow N/C 5.00 07/21/23 06:00 92 22 129/78 (95) 07/21/23 04:19 36.6 07/21/23 04:04 25 Capillary Refill : Less Than 3 Seconds I&O Intake and Output 07/20/23 23:59 Intake Total 2605 ml Output Total 1350 ml Balance 1255 ml Intake Oral 300 ml IV Total 2305 ml Output Urine Total 1350 ml General: Alert, Oriented X3, No Acute Distress HEENT: PERRLA, EOMI Neck: No LAD Lungs: Other (rhonchi and crackles present bilaterally) Heart: Regular Rate, No Murmurs Abdomen: Normal Bowel Sounds, Soft Extremities: Normal Pulses, Other (trace edema) Skin: No Rashes, No Significant Lesion Neuro: Normal Speech Results/Procedures Lab Laboratory Tests 07/20/23 11:16: Glucometer 110 07/20/23 14:58: Sodium Level 135, Potassium Level 3.7, Chloride Level 104, Carbon Dioxide Level 20L, Anion Gap 11, Blood Urea Nitrogen 87H, Creatinine 3.30H, Estimat Glomerular Filtration Rate 20, BUN/Creatinine Ratio 26, Glucose Level 108H, Calcium Level 8.2L 07/21/23 03:59: Sodium Level 137, Potassium Level 3.4L, Chloride Level 105, Carbon Dioxide Level 15L, Anion Gap 17H, Blood Urea Nitrogen 88H, Creatinine 2.56#H, Estimat Glomerular Filtration Rate 27, BUN/Creatinine Ratio 34, Glucose Level 105, Calcium Level 8.3L, White Blood Count 13.4H, Red Blood Count 4.85, Hemoglobin 13.3, Hematocrit 40, Mean Corpuscular Volume 82, Mean Corpuscular Hemoglobin 27, Mean Corpuscular Hemoglobin Concent 33, Red Cell Distribution Width 15.4H, Platelet Count 174, Mean Platelet Volume 11.0, Immature Granulocyte % (Auto) 2, Neutrophils (%) (Auto) 90H, Lymphocytes (%) (Auto) 3L, Monocytes (%) (Auto) 6, Eosinophils (%) (Auto) 0, Basophils (%) (Auto) 0, Neutrophils # (Auto) 12.0H, Lymphocytes # (Auto) 0.3L, Monocytes # (Auto) 0.8, Eosinophils # (Auto) 0.0, Basophils # (Auto) 0.0, Immature Granulocyte # (Auto) 0.2H, Magnesium Level 1.6 Microbiology 07/19/23 MRSA Screen - Final, Complete MRSA not isolated 07/19/23 Blood Culture - Preliminary, Resulted Probable Strep Pneumoniae Radiology CXR 07/19/23 IMPRESSION: Masslike airspace consolidation within the peripheral left midlung with trace left pleural effusion. This may relate to pneumonia. However, underlying mass/neoplasm not excluded. Therefore, recommend clinical correlation with additional radiographic follow-up 7-10 days after appropriate therapy to ensure resolution. CXR 07/21/23 IMPRESSION: Increasing consolidative opacities in the mid left lung with small left-sided pleural effusion. Findings are again favored to represent pneumonia however underlying mass is not excluded and CT of the chest should be performed when symptoms improve to further evaluate. Assessment/Plan Assessment/Plan (1) Respiratory failure Status: Acute Assessment & Plan: Masslike airspace consolidation within the peripheral left midlung with trace left pleural effusion found on CXR Patient has history of COPD Plan: Continue PO prednisone for potential COPD exacerbation Continue ceftriaxone 2g and azithromycin. Patients hypoxia is improving and will trial decreased oxygen will transfer to the floor recommend patient follow up outpatient to get CT to access lung nodule Qualifiers: Qualified Codes: J96.01 - Acute respiratory failure with hypoxia; J96.02 - Acute respiratory failure with hypercapnia (2) Severe sepsis Status: Acute Assessment & Plan: 2x blood cultures grew strep pneumoniae. Sensitivities pending patient already on ceftriaxone and azithromycin. will adjust Abx based on sensitivities if indicated. (3) BALDEV (acute kidney injury) Status: Acute Assessment & Plan: Cr continues to improve. Today Cr 2.56 down from 3.3 BUN continues to increase slightly. BUN today is 88 up from 87. Plan: Continue IV fluids Will continue to follow CMP results. (4) Pneumonia Status: Acute Assessment & Plan: See above Qualifiers: Qualified Codes: J18.9 - Pneumonia, unspecified organism (5) Acute encephalopathy Status: Resolved Assessment & Plan: Patient oriented x4 on 07/21 FLORENTINO TIJERINA MD 07/21/23 1736: Supervisory-Addendum Brief Verification & Attestation Participated in pt care: history, MDM, physical Personally performed: exam, history, MDM, supervision of care Care discussed with: Medical Student Procedures: n/a I personally performed or re-performed the history, physical exam and treatment for the E/M. I discussed the case with the Medical Student, and concur with the Medical Student documentation of history, physical exam and treatment plan unless otherwise noted. TULIO DUNBAR Jul 21, 2023 07:47 FLORENTINO TIJERINA MD Jul 21, 2023 17:36
[2023-07-21] MEDS: predniSONE 20 MG TABLET PO SCH (08:02)
--- NOTE | 2023-07-21 08:18 | Tele-ICU Progress Note ---
Subjective Date Seen by a Provider: Jul 21, 2023 Time Seen by a Provider: 08:18 Subjective/Events-last exam Tele-ICU Physician , Progress Note ) Service provided via interactive audio and video telecommunications [facility] sy stem to a patient admitted to ICU bed in [facility]. Patient is seen today due to persistent need of ICU care Available chart/ vitals / labs / Images reviewed Video assessment done using teleICU camera, rest of exam as per RN He is a 67-year-old male with past medical history of morbid obesity presented to the emergency room from [facility] clinic where he was found to be very short of breath and hypoxic. In the emergency room he is found to be tachycardic. Reportedly he had a cough fever and shortness of breath for several days associated with the diarrhea and he had a temperature of 202 F. He is not on any oxygen at home. Chest x-ray upon admission revealed a left upper lobe masslike consolidation. He is admitted to the intensive care unit and started on BiPAP ventilation as well as IV Rocephin and azithromycin with a suspicion that he may have Legionella pneumonia. Underlying malignancy not ruled out. However today his blood cultures grew gram-positive organisms suspicious for streptococcal pneumonia. He is a BUN/creatinine also markedly elevated at 83/3.60. He has apparently has a history of for COPD. Today he is afebrile. 07/21/23 he is breathing better, off bipap. afebrile. cxr showing increase consolidation Impression 1. Left upper lobe pneumonia with gram-positive sepsis 2. Acute hypoxic respiratory failure requiring BiPAP ventilation, now off bipap 3. Morbid obesity with possible underlying sleep apnea 4. History of COPD 5. Left upper lobe masslike consolidation. Even though it could be just a pneumonia but underlying malignancy cannot be ruled out. 6. Possible acute kidney injury. Recommendations 1. Continue azithromycin and Rocephin to 2 g daily 2. Bronchodilator therapy 3. Hydrate patient and monitor BUN/creatinine. 4. DVT prophylaxis. 5. we will get a CT of the chest without contrast tomorrow.. Coordination of care with primary care physician and bedside consultants. Discussed with the MANAGER MOTOR as well as in MDR. I am remotely monitoring this patient from Tele icu station in [place]. I am unable to do the bedside exam, and history/physical and pertinent information is taken from other notes in the computer and bedside staff. Certain portions of this document may have been dictated utilizing voice recognition technology such as [employer]. Inherent to this technology, typographical and grammatical errors may exist. As much as I am diligent to identify and correct to these mistakes, some errors may remain in the document. Critical care time devoted to this patient today is approximately is 25 minutes-- Sepsis Event Evaluation Height, Weight, BMI Height: 5'11.00" Weight: 252lbs. 0.0oz. [id number]; 40.43 BMI Method:Stated Focused Exam Lactate Level 07/19/23 11:15: Lactic Acid Level 1.46 Time of Focused Exam: 13:30 Exam Exam Patient acknowledged, consented, and participated in this virtual visit which was conducted using real time audio/video Vital Signs Date Time Temp Pulse Resp B/P (MAP) Pulse Ox O2 Delivery O2 Flow Rate FiO2 07/21/23 07:17 100 High Flow N/C 5.00 07/21/23 06:00 92 22 129/78 (95) 95 NIV Bilevel 25.00 07/21/23 05:00 90 21 136/72 (93) 98 NIV Bilevel 25.00 07/21/23 04:19 36.6 07/21/23 04:04 96 NIV Bilevel 25 07/21/23 04:00 96 25 128/72 (90) 97 NIV Bilevel 25.00 07/21/23 03:00 96 24 138/71 (93) 95 NIV Bilevel 25.00 07/21/23 02:05 91 23 96 25.00 07/21/23 02:00 92 27 141/84 (103) 95 NIV Bilevel 25.00 07/21/23 01:00 70 16 114/73 (87) 96 NIV Bilevel 25.00 07/21/23 00:27 36.5 07/21/23 00:23 94 07/21/23 00:02 96 NIV Bilevel 25 07/21/23 00:00 91 25 123/77 (92) 100 NIV Bilevel 25.00 07/20/23 23:00 94 20 118/68 (85) 1000 High Flow N/C 5.00 07/20/23 22:19 98 26 98 25.00 07/20/23 22:00 101 9 120/86 (97) 95 High Flow N/C 5.00 07/20/23 21:00 98 20 130/80 (97) 92 High Flow N/C 5.00 07/20/23 20:00 96 NIV Bilevel 25 07/20/23 20:00 96 26 144/74 (97) 91 High Flow N/C 5.00 07/20/23 20:00 36.8 High Flow N/C 5.00 07/20/23 19:25 97 High Flow N/C 5.00 07/20/23 19:11 92 07/20/23 19:00 93 21 138/78 (98) 98 High Flow N/C 5.00 07/20/23 18:00 95 18 133/84 (100) 98 High Flow N/C 5.00 07/20/23 17:00 93 20 129/78 (95) 98 High Flow N/C 5.00 07/20/23 16:28 High Flow N/C 5.00 07/20/23 16:00 89 23 123/90 (101) 97 NIV Bilevel 25.00 07/20/23 16:00 96 NIV Bilevel 25 07/20/23 15:52 37.0 NIV Bilevel 25.00 07/20/23 15:00 88 20 108/71 (83) 97 NIV Bilevel 25.00 07/20/23 14:16 80 23 96 25.00 07/20/23 14:00 81 14 120/73 (89) 96 NIV Bilevel 25.00 07/20/23 13:06 85 07/20/23 13:00 86 26 124/64 (84) 95 NIV Bilevel 25.00 07/20/23 12:00 95 NIV Bilevel 25 07/20/23 12:00 84 21 122/72 (89) 95 NIV Bilevel 25.00 07/20/23 11:13 36.5 07/20/23 11:00 79 15 119/68 (85) 98 NIV Bilevel 25.00 07/20/23 10:47 NIV Bilevel 25.00 07/20/23 10:11 78 20 99 25.00 07/20/23 10:00 80 19 111/67 (82) 99 NIV Bilevel 30.00 07/20/23 09:00 67 18 115/59 (77) 100 NIV Bilevel 30.00 07/20/23 08:30 36.1 I & O 12/6/23 06:59 Intake Total 2955 ml Output Total 1425 ml Balance 1530 ml Height & Weight Height: 5'11.00" Weight: 252lbs. 0.0oz. [id number]; 40.43 BMI Method:Stated General Appearance: No Apparent Distress, WD/WN, Obese HEENT: PERRL/EOMI, Normal ENT Inspection Neck: Normal Inspection; No JVD Respiratory: Lungs Clear (On BiPAP) Cardiovascular: Regular Rate, Rhythm Capillary Refill: Less Than 3 Seconds Gastrointestinal: non tender, soft, no organomegaly Extremity: Pedal Edema, Swelling Neurologic/Psychiatric: Alert, Oriented x3, No Motor/Sensory Deficits, Normal Mood/Affect Results Lab Laboratory Tests 07/19/23 10:35 07/19/23 11:05 07/19/23 16:25 07/20/23 04:25 07/20/23 14:58 07/21/23 03:59 Assessment/Plan Assessment/Plan as above Critical Care: Critically Ill Patient Time spent with patient (mins): 25 RAY HERNANDEZ MD Jul 21, 2023 08:18
--- NOTE | 2023-07-21 08:36 | Diagnostic Imaging Report ---
EXAMINATION: Chest 1 view HISTORY: Pneumonia. COMPARISON: Chest radiograph on 07/19/2023. FINDINGS: Increasing consolidative opacities are seen in the mid left lung. The right lung is clear. Possible small left pleural effusion. No pneumothorax. Stable cardiac silhouette. IMPRESSION: 1. Increasing consolidative opacities in the mid left lung with small left-sided pleural effusion. Findings are again favored to represent pneumonia however underlying mass is not excluded and CT of the chest should be performed when symptoms improve to further evaluate. Dictated by: Dictated on workstation # [id number]
[2023-07-21 09:17] LABS: ABG BASE EXCESS -8.6 MMOL/L (-2.5-2.5); ABG OXYGEN SATURATION 97 % (94-100); ABG PCO2 33 MMHG (35-45); ABG PO2 87 MMHG (79-93); ABG TCO2 17.6 MMOL/L (21.0-31.0)
[2023-07-21 09:19] LABS: ABG PH 7.31 (7.37-7.43); INSPIRED O2 25%; VENTILATOR NO
[2023-07-21 15:40] VITALS: BP 141/67
[2023-07-21] MEDS: AZITHROMYCIN INJECTION 500 MG in NS (IVPB) 250 ML 250 ML IV SCH (16:22)
[2023-07-21] MEDS: cefTRIAXone 2,000 MG/NS 50 ML IVPB IV SCH ×2 (16:22)
[2023-07-21 19:08] VITALS: BP 139/93
[2023-07-21 23:27] VITALS: BP 142/79
[2023-07-22] VITALS (7 sets, daily range): BP systolic 109–173; BP diastolic 56–95
[2023-07-22] MEDS: LACTATED RINGERS 1,000 ML 1,000 ML IV SCH ×4 (00:26→23:15)
[2023-07-22] MEDS: RT-Ipratropium/Albuterol NEB 3 ML VIAL INH SCH ×5 (02:51→22:31)
[2023-07-22 06:17] LABS: BASOPHILS # (AUTO) 0.1 10^3/uL (0.0-0.1); BASOPHILS % (AUTO) 0 % (0-10); EOSINOPHILS % (AUTO) 0 % (0-10); HEMATOCRIT 39 % (40-54); HEMOGLOBIN 13.1 g/dL (13.3-17.7); LYMPHOCYTES # (AUTO) 0.5 10^3/uL (1.0-4.0); LYMPHOCYTES % (AUTO) 3 % (12-44); MEAN CORPUSCULAR HEMOGLOBIN 28 pg (25-34); MEAN CORPUSCULAR HGB CONC 34 g/dL (32-36); MEAN CORPUSCULAR VOLUME 81 fL (80-99); MEAN PLATELET VOLUME 10.7 fL (9.0-12.2); MONOCYTES # (AUTO) 1.1 10^3/uL (0.0-1.0); MONOCYTES % (AUTO) 7 % (0-12); NEUTROPHILS % (AUTO) 85 % (42-75); PLATELET COUNT 191 10^3/uL (130-400); WHITE BLOOD COUNT 15.4 10^3/uL (4.3-11.0)
[2023-07-22 06:33] LABS: ALBUMIN 3.2 GM/DL (3.2-4.5)
[2023-07-22 06:34] LABS: POTASSIUM 3.4 MMOL/L (3.6-5.0)
[2023-07-22 06:35] LABS: CALCIUM 9.4 MG/DL (8.5-10.1)
[2023-07-22 06:36] LABS: TOTAL PROTEIN 7.2 GM/DL (6.4-8.2)
[2023-07-22 06:40] LABS: CREATININE SERUM 1.61 MG/DL (0.60-1.30)
[2023-07-22 06:41] LABS: BILIRUBIN,DIRECT 0.8 MG/DL (0.0-0.3); BILIRUBIN,INDIRECT 0.2 MG/DL
[2023-07-22 06:43] LABS: MAGNESIUM 2.4 MG/DL (1.6-2.4)
[2023-07-22 06:45] LABS: CRENATED RBC MODERATE; LYMPHOCYTES % (MANUAL) 3 %; MONOCYTES % (MANUAL) 7 %; NEUTROPHILS % (MANUAL) 90 %; PLATELET ESTIMATE ADEQUATE
--- NOTE | 2023-07-22 07:19 | Progress Note ---
TULOI DUNBAR 07/22/23 0719: Subjective Subjective/Events-last exam Patient is feeling pretty good this morning and wanting to leave. At times patient has to work to breath but he reports that this is not new. He believes that his breathing is better today compared to yesterday. Patient doesn't report any confusion or brain fog this morning. Patient has been eating ok, mostly shakes and drinking "a lot" of water. Patient is on 1 lpm this morning and does not appear short of breath. His answers are slow and has difficultly remembering the date but is oriented to person, place, situation and was able to state the month and year. Patient is wanting his catheter removed is possible. Review of Systems General: No Chills, No Night Sweats, No Fatigue HEENT: No Head Aches, No Dysphasia Pulmonary: Dyspnea, Cough Cardiovascular: No: Chest Pain, Palpitations Gastrointestinal: No: Nausea, Vomiting, Abdominal Pain, Diarrhea, Constipation Genitourinary: No Dysuria Neurological: No: Confusion Focused Exam Lactate Level 07/19/23 11:15: Lactic Acid Level 1.46 Time of Focused Exam: 13:30 Objective Exam Last Set of Vital Signs Vital Signs Date Time Temp Pulse Resp B/P (MAP) Pulse Ox O2 Delivery O2 Flow Rate FiO2 07/22/23 07:06 93 Nasal Cannula 1.00 07/22/23 03:00 37.0 99 18 142/56 (84) 07/21/23 04:04 25 Capillary Refill : Less Than 3 Seconds I&O Intake and Output 07/21/23 23:59 Intake Total 3540 ml Output Total 1400 ml Balance 2140 ml Intake Oral 1690 ml IV Total 1600 ml Tube Feeding 250 ml Output Urine Total 1400 ml General: Alert, Oriented X3, No Acute Distress HEENT: PERRLA, EOMI, Mucous Memb Moist/[place] Lungs: Other (rhonchi and crackles bilaterally. decreased breath sounds on lower left lung. ) Heart: Regular Rate Abdomen: Soft, No Tenderness Extremities: No Edema Neuro: Normal Speech Results/Procedures Lab Laboratory Tests 07/21/23 09:06: Arterial Blood pH 7.31*L, Arterial Blood Partial Pressure CO2 33L, Arterial Blood Partial Pressure O2 87, Arterial Blood HCO3 17*L, Arterial Blood Total CO2 17.6L, Arterial Blood Oxygen Saturation 97, Arterial Blood Base Excess -8.6L, Blood Gas Ventilator Setting NO, Blood Gas Inspired Oxygen 25% 07/22/23 05:49: White Blood Count 15.4H, Red Blood Count 4.77, Hemoglobin 13.1L, Hematocrit 39L, Mean Corpuscular Volume 81, Mean Corpuscular Hemoglobin 28, Mean Corpuscular Hemoglobin Concent 34, Red Cell Distribution Width 15.7H, Platelet Count 191, Mean Platelet Volume 10.7, Immature Granulocyte % (Auto) 5, Neutrophils (%) (Auto) 85H, Lymphocytes (%) (Auto) 3L, Monocytes (%) (Auto) 7, Eosinophils (%) (Auto) 0, Basophils (%) (Auto) 0, Neutrophils # (Auto) 13.0H, Lymphocytes # (Auto) 0.5L, Monocytes # (Auto) 1.1H, Eosinophils # (Auto) 0.0, Basophils # (Auto) 0.1, Immature Granulocyte # (Auto) 0.8H, Neutrophils % (Manual) 90, Lymphocytes % (Manual) 3, Monocytes % (Manual) 7, Platelet Estimate ADEQUATE, Crenated Cell MODERATE, Sodium Level 135, Potassium Level 3.4L, Chloride Level 106, Carbon Dioxide Level 17L, Anion Gap 12, Blood Urea Nitrogen 73H, Creatinine 1.61H, Estimat Glomerular Filtration Rate 46, BUN/Creatinine Ratio 45, Glucose Level 137H, Calcium Level 9.4, Magnesium Level 2.4, Total Bilirubin 1.0, Direct Bilirubin 0.8H, Indirect Bilirubin 0.2, Aspartate Amino Transf (AST/SGOT) 52H, Alanine Aminotransferase (ALT/SGPT) 34, Alkaline Phosphatase 121, Total Creatine Kinase 345H, Total Protein 7.2, Albumin 3.2 Microbiology 07/19/23 Urine Culture - Final, Complete >=3 Gram Positive Isolates 07/19/23 MRSA Screen - Final, Complete MRSA not isolated 07/19/23 Blood Culture - Preliminary, Resulted Streptococcus pneumoniae Radiology CXR 07/19/23 IMPRESSION: Masslike airspace consolidation within the peripheral left midlung with trace left pleural effusion. This may relate to pneumonia. However, underlying mass/neoplasm not excluded. Therefore, recommend clinical correlation with additional radiographic follow-up 7-10 days after appropriate therapy to ensure resolution. CXR 07/21/23 IMPRESSION: Increasing consolidative opacities in the mid left lung with small left-sided pleural effusion. Findings are again favored to represent pneumonia however underlying mass is not excluded and CT of the chest should be performed when symptoms improve to further evaluate. Assessment/Plan Assessment/Plan (1) Respiratory failure Status: Acute Assessment & Plan: Masslike airspace consolidation within the peripheral left midlung with trace left pleural effusion found on CXR Patient has history of COPD Plan: Continue PO prednisone for potential COPD exacerbation Continue ceftriaxone 2g and azithromycin. Will remove catheter today Plan to discharge patient tomorrow if he continues to improve Will get ambulatory oxygen test to determine home oxygen requirement Qualifiers: Qualified Codes: J96.01 - Acute respiratory failure with hypoxia; J96.02 - Acute respiratory failure with hypercapnia (2) Severe sepsis Status: Acute Assessment & Plan: 2x blood cultures grew strep pneumoniae. Sensitivities pending patient already on ceftriaxone and azithromycin. will adjust Abx based on sensitivities if indicated. (3) BALDEV (acute kidney injury) Status: Acute Assessment & Plan: Cr continues to improve. Today Cr 1.16 down from 2.56 BUN improving. BUN today is 73 down from 88. Plan: Continue IV fluids Will continue to follow CMP results. (4) Pneumonia Status: Acute Assessment & Plan: See above Qualifiers: Qualified Codes: J18.9 - Pneumonia, unspecified organism (5) Acute encephalopathy Status: Resolved Assessment & Plan: Patient oriented x4 on 07/21 FLORENTINO TIJERINA MD 07/22/232033: Supervisory-Addendum Brief Verification & Attestation Participated in pt care: history, MDM, physical Personally performed: exam, history, MDM, supervision of care Care discussed with: Medical Student Procedures: n/a I personally performed or re-performed the history, physical exam and treatment for the E/M. I discussed the case with the Medical Student, and concur with the Medical Student documentation of history, physical exam and treatment plan unless otherwise noted. TULIO DUNBAR Jul 22, 2023 07:19 FLORENTINO TIJERINA MD Jul 22, 2023 20:34
[2023-07-22] MEDS ORDERED: POTASSIUM CHLORIDE 20 MEQ TABLET PO NR (08:00)
[2023-07-22] MEDS: predniSONE 20 MG TABLET PO SCH (08:05)
--- NOTE | 2023-07-22 14:10 | Diagnostic Imaging Report ---
EXAMINATION: CT chest without contrast. TECHNIQUE: Multiple contiguous axial images were obtained through the chest without the use of intravenous contrast. All CT scans use one or more of the following dose optimizing techniques: automated exposure control, MA and/or KvP adjustment based on patient size and exam type or iterative reconstruction. HISTORY: Left upper lung mass COMPARISON: 06/27/2020 FINDINGS: Thyroid: Heterogeneous appearance of the thyroid gland. Mediastinum: Heart size is normal without significant pericardial effusion. Calcifications of the aorta and coronary vessels. Thoracic aorta is normal in caliber. There are multiple enlarged mediastinal lymph nodes present. A subcarinal node measures 3.6 x 1.8 cm. A left anterior mediastinal lymph node measures 2.7 x 1.3 cm. Lungs and airways: There is prominent mass-like consolidation in the left upper lobe measuring up to 11.1 x 6.8 cm. There is surrounding groundglass opacification within the left upper lobe. There is right middle lobe consolidation. There are a couple of pulmonary nodules in the lingula measuring up to 1.5 cm. There is a right upper lobe pulmonary nodule measuring 1.3 cm. There is left basilar atelectasis. There is linear atelectasis or scarring within the lung bases, as well. No significant pleural effusion or pneumothorax. The airways are compressed, likely secondary to expiratory state. Upper abdomen: The subphrenic structures are normal. Musculoskeletal: Degenerative changes of the spine without suspicious osseous lesion or compression fracture. IMPRESSION: 1. Left upper lobe mass-like consolidation. This is new from studies dating back to 10/06/2021. Findings are concerning for a neoplastic process although infectious process would remain in the differential. Recommend evaluation with PET/CT or CT-guided biopsy. 2. Multiple additional bilateral pulmonary nodules which would be concerning for pulmonary metastatic disease. 3. Enlarged mediastinal lymph nodes which are indeterminate and could be reactive or secondary to svitlana metastasis. Dictated by: Dictated on workstation # [id number]
[2023-07-22] MEDS: AZITHROMYCIN 250 MG TABLET PO SCH (16:03)
[2023-07-22] MEDS: cefTRIAXone 2,000 MG/NS 50 ML IVPB IV SCH ×2 (16:03)
[2023-07-23] MEDS: RT-Ipratropium/Albuterol NEB 3 ML VIAL INH SCH ×4 (03:06→14:41)
[2023-07-23 03:21] VITALS: BP 156/83
[2023-07-23 04:45] VITALS: BP 146/85
[2023-07-23 06:58] LABS: CALCIUM 8.6 MG/DL (8.5-10.1); CREATININE SERUM 0.91 MG/DL (0.60-1.30); MAGNESIUM 1.9 MG/DL (1.6-2.4); POTASSIUM 3.5 MMOL/L (3.6-5.0)
[2023-07-23 07:50] VITALS: BP 140/78
[2023-07-23] MEDS: LACTATED RINGERS 1,000 ML 1,000 ML IV SCH ×2 (08:01→15:42)
[2023-07-23] MEDS ORDERED: CEFDINIR 300 MG CAPSULE PO SCH (09:00)
[2023-07-23] MEDS: predniSONE 20 MG TABLET PO SCH (09:24)
[2023-07-23 11:43] VITALS: BP 148/87
[2023-07-23] MEDS ORDERED: PRD20T PO (14:37)
[2023-07-23] MEDS ORDERED: CEFD300C3 PO (14:37)
--- NOTE | 2023-07-23 14:39 | D/C HH Face to Face Order ---
D/C Face to Face Orders Instructions for Patient [facility] Patient Instructions/FollowUp: Follow up with Dr. Valero within a week of discharge. You will need to talk to her about a referral for biopsy of your possible lung mass. Physician to follow Patient: Anjum Discharge Diet for Home: Regular Diet Patient Data-Allergies,Ht & Wt Patient Allergies: Coded Allergies: No Known Drug Allergies (Verified , 03/23/08) Height (Feet): 5 Height (Inches): 11.00 Weight (Pounds): 252 Weight (Ounces): 0.0 Home Health Need/Face to Face Date of Face to Face: Jul 23, 2023 Clinical Findings: Shortness of breath I have seen Pt [id number]: Yes Discharged To: Home Diagnosis/Conditions: Pneumonia COPD Possible lung mass Generalized weakness Patient is Homebound due to: Shortness of breath/distress Homebound Status Due to the above stated illness, injury or surgical procedure (medical condition or diagnosis) and associated clinical findings, the patient is homebound because of his/her inability to leave home except with aid of a supportive device and/or person AND leaving the home requires a considerable and taxing effort or is medically contraindicated. Pt req the following assistanc: Aid of another person Home Health Nursing Orders Home Health Services Order: Nursing Services, Physical Therapy-Evaluate & Treat Home Health Infusion Therapy Line Start Date: Jul 20, 2023 Certify Stmt I certify that this patient is under my care and that I, a nurse practitioner or a physician; a teachers' assistant working with me, had a face to face encounter that - meets the physician face to face encounter requirements with this patient as dated. FLORENTINO TIJERINA MD Jul 23, 2023 14:39
--- NOTE | 2023-07-23 15:27 | Discharge Summary ---
TULIO DUNBAR 07/23/23 1446: Discharge Summary Hospital Course Problems/Diagnosis: (1) Respiratory failure Status: Acute Assessment & Plan: Masslike airspace consolidation within the peripheral left midlung with trace left pleural effusion found on CXR Patient has history of COPD Plan: Continue PO prednisone for potential COPD exacerbation Continue ceftriaxone 2g and azithromycin. Patient will be discharged on oxygen Qualifiers: Qualified Codes: J96.01 - Acute respiratory failure with hypoxia; J96.02 - Acute respiratory failure with hypercapnia (2) Severe sepsis Status: Acute Assessment & Plan: 2x blood cultures grew strep pneumoniae. Strep pnemoniae sensitive to azithromycin. (3) BALDEV (acute kidney injury) Status: Resolved Resolution Date/Time: 07/23/23 @ 06:00 Assessment & Plan: Cr .91 on date of discharge BUN 52 on date of discharge (4) Pneumonia Status: Acute Assessment & Plan: See above Qualifiers: Qualified Codes: J18.9 - Pneumonia, unspecified organism (5) Acute encephalopathy Status: Resolved Resolution Date/Time: 07/21/23 @ 13:06 Assessment & Plan: Patient oriented x4 on 07/21 Hospital Course Date of Admission: Jul 19, 2023 at 13:59 Admission Diagnosis : Family Physician/Provider: Nathan Gomez MD Date of Discharge: 07/23/23 Discharge Diagnosis: Pnemonia, BALDEV, Respiratory failure Hospital Course: Patient was admitted due to worsening Respiratory failure. Xray of the lung showed consolidation in the peripheral left midlung and was treated empirical for pneumonia with ceftriaxone and azithromycin as well as prednisone 40mg for 5 days for potential COPD exacerbation. Patient was found to be septic and blood cultures were positive for Strep Pneumonia. Patient also had BALDEV with Cr 3.30 which improved prior to discharge after treatment of sepsis and IV fluids. Creatinine prior to discharge was 0.91. Patient did have improvement in reparatory symptoms but was discharged with oxygen due to new oxygen requirement with ambulation. Patient did express desire to quit smoking "cold turkey" upon discharge from the hospital. CT Chest during admission did show a mass-like consolidation on the left upper lobe that is concerning for a neoplastic process. Recommend biopsy for further evaluation. There were also bilateral pulmonary nodules that are concerning for potential metastatic disease. Discussed with Dr. Zaragoza in radiology and biopsy could be performed once antibiotics are completed. Will need to be scheduled. Labs and Pending Lab Test: Laboratory Tests 07/23/23 05:30: Sodium Level 139, Potassium Level 3.5L, Chloride Level 110H, Carbon Dioxide Level 18L, Anion Gap 11, Blood Urea Nitrogen 52H, Creatinine 0.91, Estimat Glomerular Filtration Rate 92, BUN/Creatinine Ratio 57, Glucose Level 115H, Calcium Level 8.6, Magnesium Level 1.9 Microbiology 07/19/23 Urine Culture - Final, Complete >=3 Gram Positive Isolates 07/19/23 MRSA Screen - Final, Complete MRSA not isolated 07/19/23 Blood Culture - Final, Complete Streptococcus pneumoniae Home Meds Active Prednisone 20 Mg Tab 40 Mg PO Q24HR 1 Days Cefdinir 300 Mg Capsule 300 Mg PO BID Reported Symbicort 80-4.5 Mcg Inhaler (Budesonide/Formoterol Fumarate) 80 Mcg-4.5 Mcg/Ac tuation Hfa.aer.ad 2 Puff INH BID Fluticasone Propionate 50 Mcg/Actuation [place]riot.susp 2 [place]riot NSEACH DAILY Duloxetine HCl 60 Mg Capsule.dr 60 Mg PO DAILY Atenolol 50 Mg Tablet 50 Mg PO DAILY Spiriva Respimat 1.25MCG/ACTUATION (Tiotropium [place]) 1.25 Mcg/Actuation Mist.inhal 2 Puff INH DAILY Esomeprazole Magnesium 40 Mg Capsule.dr 40 Mg PO DAILY Atorvastatin Calcium 40 Mg Tablet 40 Mg PO DAILY Clonazepam 0.5 Mg Tablet 0.5 Mg PO TID Hydrocodone-Acetamin 10-325 mg (Hydrocodone/Acetaminophen) 10 Mg-325 Mg Tablet 1 Ea PO TID PRN Ventolin Hfa (Albuterol Sulfate) 90 Mcg Hfa.aer.ad 2 Puff INH Q4H PRN Ibuprofen 800 Mg Tablet 800 Mg PO TID PRN Sucralfate 1 Gram Tablet 1 Gm PO TID PRN Lisinopril 20 Mg Tablet 20 Mg PO DAILY Discharge Diet: No Restrictions Activity as Tolerated: Yes Discharge Physical Examination Allergies: Coded Allergies: No Known Drug Allergies (Verified , 03/23/08) General Appearance: No Apparent Distress HEENT: PERRL/EOMI Respiratory: No Respiratory Distress, Crackles, Wheezing Cardiovascular: Regular Rate, Rhythm, No Edema, Normal Peripheral Pulses Gastrointestinal: Normal Bowel Sounds, Non Tender, Soft Extremity: No Pedal Edema Skin: Normal Color, Warm/Dry Neurologic/Psychiatric: Alert, Oriented x3 Discharge Summary Date of Admission Jul 19, 2023 at 13:59 Date of Discharge Discharge Date: Jul 22, 2023 FLORENTINO TIJERINA MD 07/24/23 1010: Discharge Summary Hospital Course Assessment/Pt DC Instructions Follow up with Dr. Valero within a week of discharge. Will need referred/ordered IR guided lung biopsy after antibiotics completed. Discharge Physical Examination Allergies: Coded Allergies: No Known Drug Allergies (Verified , 03/23/08) Supervisory-Addendum Brief Verification & Attestation Participated in pt care: history, MDM, physical Personally performed: exam, history, MDM, supervision of care Care discussed with: Medical Student Procedures: n/a I personally performed or re-performed the history, physical exam and treatment for the E/M. I discussed the case with the Medical Student, and concur with the Medical Student documentation of history, physical exam and treatment plan unless otherwise noted. TULIO DUNBAR Jul 23, 2023 14:46 FLORENTINO TIJERINA MD Jul 24, 2023 10:10
[2023-07-23] MEDS: cefTRIAXone 2,000 MG/NS 50 ML IVPB IV SCH ×2 (15:42)
[2023-07-23] MEDS: AZITHROMYCIN 250 MG TABLET PO SCH (15:55)
== END 2023-07-23 16:00 | disposition home health service (06) | DRG 871 ==
LOC: EDUNIT# 10:25 → ER 10:26 → ICU 13:59 → 4TH 07-21 15:17
PROVIDERS: ADMIT Family Medicine; ATTEND Family Medicine
PROC: 5A09357 Assistance with Respiratory Ventilation, Less than 24 Consecutive Hours, Continuous Positive Airway Pressure (ICD-10-PCS; principal; 2023-07-19)
PROC: 5A0935A Assistance with Respiratory Ventilation, Less than 24 Consecutive Hours, High Flow/Velocity Cannula (ICD-10-PCS; 2023-07-19)
DX: A40.3 Sepsis due to Streptococcus pneumoniae (principal); J18.9 Pneumonia, unspecified organism; J96.01 Acute respiratory failure with hypoxia; R65.20 Severe sepsis without septic shock; J44.0 Chronic obstructive pulmonary disease with (acute) lower respiratory infection; Z68.41 Body mass index [BMI] 40.0-44.9, adult; E87.20 Acidosis, unspecified; G93.40 Encephalopathy, unspecified; N17.9 Acute kidney failure, unspecified; F17.210 Nicotine dependence, cigarettes, uncomplicated; I10 Essential (primary) hypertension; M10.9 Gout, unspecified; K21.9 Gastro-esophageal reflux disease without esophagitis; L30.4 Erythema intertrigo; F41.9 Anxiety disorder, unspecified; R91.8 Other nonspecific abnormal finding of lung field
CPT/HCPCS: 36415; 36600; 71045; 71250; 76770; 80048; 80053; 80076; 81000; 82550; 82805; 82947; 83605; 83735; 83880; 85007; 85025; 85027; 85610; 85730; 86141; 87040; 87077; 87081; 87088; 87181; 87449; 87636; 93005; 93041; 94640; 94660; 94760; 94761; 96374